=== PATIENT | female | born 1975 | race Caucasian/White ===

== ENCOUNTER 2024-02-03 15:02 | Observation (INO) ==
--- NOTE | 2024-02-03 15:18 | ED Triage Note ---
Date of Service February 03, 2024 Provider in Triage Author: Mary Kate Madison History of Present Illness This patient was briefly evaluated while in triage. An abbreviated physical exam was performed. This patient is a 48-year-old Female who presents to the ED for evaluation recent C. Diff infection (diagnosed in October), on dificid since last treated previously with Vanco x 3, dicyclomine, questran, probiotic increasing diarrhea (15x/day), weakness, possible near syncopal episode last night generalized abdominal pain Physical Exam GENERAL: NAD CARDIOVASCULAR: RRR RESPIRATORY: CTA ABDOMEN: BS x 4. Nontender to palpation. Initial orders for labs and / or imaging were placed and patient was placed in the waiting area until a bed is available. Please see further documentation for the full ED course.
[2024-02-03] MEDS: SODIUM CHLORIDE 0.9% 1,000 ML IV SCH (16:11)
[2024-02-03 16:32] LABS: Basophils # (auto) 0.05 K/uL (0.00-0.20); Basophils % (auto) 0.4 %; Eosinophils # (auto) 0.08 K/uL (0.00-0.50); Eosinophils % (auto) 0.7 %; Hematocrit (blood only) 42.5 % (37.0-47.0); Hemoglobin 14.9 g/dl (12.0-16.0); Immature Granulocytes # (auto) 0.03 K/uL (0.01-0.20); Immature Granulocytes % (auto) 0.3 %; Lymphocytes # (auto) 2.16 K/uL (1.20-3.40); Lymphocytes % (auto) 18.1 %; Mean Corpuscular Hemoglobin 30.5 pg (25.0-34.0); Mean Corpuscular Hgb Conc 35.1 g/dL (32.0-36.0); Mean Corpuscular Volume 86.9 fL (80.0-100.0); Mean Platelet Volume 9.8 fL (9.4-12.4); Monocytes # (auto) 0.71 K/uL (0.11-0.59); Neutrophils % (auto) 74.5 %; Platelet Count 286 K/uL (130-400); RDW Coefficient of Variation 12.6 % (11.5-14.5); RDW Standard Deviation 39.3 fL (36.4-46.3); Red Blood Count 4.89 M/uL (4.20-5.40); White Blood Count 11.93 K/ul (4.8-10.8)
[2024-02-03 16:47] LABS: Albumin Globulin Ratio 1.6 (0.9-2); Albumin Level 4.7 gm/dl (3.4-5.0); BUN Creatinine Ratio 4.1 (10-20); Bilirubin,Total 0.5 mg/dl (0.2-1.0); Calcium 9.9 mg/dl (8.6-10.3); Est GFR (African American) 110.3 ml/min; Est GFR (Non-African American) 95.1 ml/min; Potassium 3.9 mmol/L (3.5-5.1); Total Protein 7.7 gm/dl (6.0-8.3)
--- NOTE | 2024-02-03 17:26 | Emergency Department Note ---
Impression & Plan Diarrhea ED Provider Note NAME: REKHA BURNS AGE: 48 SEX: F : 1975 ARRIVES VIA: Walk-In INFORMANT: Patient, ED PROVIDER(S): Robyn Rodriguez MD CHIEF COMPLAINT: Diarrhea HPI: This is a 48-year-old female presenting for diarrhea per patient notes history of having multiple months of C. difficile. She states that beginning in October she started having infection with C. difficile. She is on vancomycin x 2 and then was switched to Dificid. She then noted that she has been taking her medicine as prescribed and the symptoms are getting worse again. She has abdominal pain and Was up to the diarrhea already today. She notes no chest pain, short breath, fever, chills. She does note that she had a syncopal episode yesterday from dehydration. ROS: See above HPI for pertinent positives & negatives. A total of 10 systems reviewed and were otherwise negative. PAST MEDICAL HISTORY: See Below PAST SURGICAL HISTORY: See Below FAMILY HISTORY: See Below SOCIAL HISTORY: See Below HOME MEDICATIONS: See Below ALLERGIES: See Below VITALS: See Below PHYSICAL EXAMINATION: General: resting comfortably in no acute distress Head: Normocephalic and atraumatic Eyes: Normal inspection, extraocular muscles intact Ear, nose, throat: Normal external exam Neck: Normal range of motion Respiratory: lungs clear to auscultation bilaterally Cardiovascular: Regular rate/rhythm, no murmur GI: soft, nontender, no guarding or rebound Extremities: nontender, moves all extremities Neuro: The patient awake and alert, appropriately conversive, no focal deficits, symmetric faces Skin: Warm, dry, and intact MEDICAL DECISION MAKING: This is a 48-year-old female sent for diarrhea. Patient notes that she has had multiples of C. difficile vancomycin multiple times and now Dificid. Will give full resuscitation, pain medicine for crampy abdominal pain and blood work. Consider CT imaging for persistent abdominal pain and possible complication such as toxic megacolon or diverticulitis/SBO/pancreatitis. -Blood work is reviewed showed no significant abnormalities, slight leukocytosis to 11.93 but otherwise no significant signs of dehydration clinically. Patient's urinalysis is unrevealing of UTI. Patient has no C. difficile toxin at this time. Otherwise negative stool studies. Vital signs are also reviewed and within normal limits. -CT imaging performed due to her prolonged symptoms. Again this reveals diarrheal illness without other acute other abnormality aside from possible cystitis. -Discussed findings with patient and reassuring workup. Patient continues to feel unwell. Did discuss discharge versus admission. Patient will take some time to think about this. -Patient ultimately request admission due to her persistent symptoms and dehydration. -Discussed with Dr. Stover for admission Differential diagnosis: C. difficile, sepsis, diarrheal illness, ER treatment provided: See below Independent History obtained from: Significant other, some Diagnostics interpreted by me: ECG: ECG independently interpreted by me with normal sinus rhythm, rate of 63, normal axis, normal MS, normal QRS, normal QTc, no ST segment elevations consistent with STEMI criteria Cardiac Monitoring: An order was placed for continuous cardiac monitoring. The monitor shows a rate of 72 with sinus rhythm. Laboratory studies: As stated above and show below. Imaging studies: See below. Past Med/Surg History Problem List (Updated 02/04/24 @ 10:26 by LEEANN Negrete) Syncope Diarrhea (Acute) BRBPR (bright red blood per rectum) Diarrhea (Acute) Dehydration (Acute) History of seizure Hypothyroidism Clostridium difficile infection (Acute) Intractable abdominal pain (Acute) Gastroenteritis (Acute) Migraine (Acute) Medical History (Updated 02/04/24 @ 10:26 by LEEANN Negrete) Epilepsy Surgical History Hx of section Social History Smoking Status: Former smoker Tobacco Type: Cigarettes Cigarettes Per Day: 1 pack per day; Smoking End Date: 6 yrs ago; Second Hand Exposure: Yes; Do You Dip or Chew Tobacco: No; Hx Alcohol Use: No Hx Substance Use: Yes Last Used Substance: Days (ago) Last Used Substance Other:: Thursday 02/01 Substance Use Type Other:: medical marijuana Preferred Language: Maltese Communication Ability: Effective Grain Unloader Required: No Beliefs That Will Affect Care: None Current Living Situation: Family and Significant Other Current Living Situation Comment: boyfriend and son Feels Safe at Home: Yes Assistive Devices: None Allergies Allergies Allergy/AdvReac Type Severity Reaction Status Date / Time metoclopramide [From Reglan] AdvReac Intermediate FELT LIKE Verified 02/03/24 21:25 "SKIN CRAWLING" Home Meds Home Medications Medication Instructions Recorded Confirmed fremanezumab-vfrm 225 mg/1.5 mL 225 mg subcut UD 12/04/19 02/03/24 subcutaneous syringe (Ajovy Syringe) sumatriptan succinate 6 mg/0.5 mL 6 mg subcut UD PRN Migraine 12/04/19 02/03/24 subcutaneous pen injector Headache zonisamide 50 mg capsule 50 mg PO QAM 11/11/20 02/03/24 ondansetron HCl 4 mg tablet 4 mg PO Q6H PRN Nausea 09/04/21 02/03/24 dextromethorphan IR 45 1 tab PO BID 11/02/23 02/03/24 mg-bupropion ER 105 mg biphasic tablet (Auvelity) fluticasone propionate 50 2 spray intranasal DAILY PRN 11/02/23 02/03/24 mcg/actuation nasal ALLERGIES spray,suspension levothyroxine 50 mcg tablet 50 mcg PO DAILYBB 11/02/23 02/03/24 lumateperone 42 mg capsule 42 mg PO HS 11/02/23 02/03/24 (Caplyta) meclizine 25 mg tablet 25 mg PO TID PRN Dizziness 11/02/23 02/03/24 suvorexant 10 mg tablet (Belsomra) 10 mg PO DAILY 11/02/23 02/03/24 fidaxomicin 200 mg tablet (Dificid) 200 mg PO Q OTHER DAY 02/03/24 02/03/24 zonisamide 100 mg capsule 100 mg PO HS 02/03/24 02/03/24 Results & Data (ED) Vital Signs Vital Signs - 24 hr 02/03/24 15:16 02/03/24 16:12 02/03/24 16:33 Temperature 36.4 C L Temperature Source Skin Pulse Rate 72 77 Pulse Rate [Apical] 70 Pulse Rate from SpO2 Sensor Respiratory Rate 20 18 Respiratory Effort / Characteristics Non-Labored Spontaneous Non-Labored Spontaneous Respiratory Depth Normal Normal Respiratory Pattern Regular Blood Pressure 143/102 H Blood Pressure Mean 115 Pulse Oximetry 98 Oxygen Delivery Method Room Air Sepsis Recent Fever Within 48 Hours No Sepsis New/Unexplained Change in Mental Status N/A Sepsis Action Taken by Nursing No Action Required 02/03/24 17:06 02/03/24 18:00 02/03/24 20:10 Temperature Temperature Source Pulse Rate 63 73 67 Pulse Rate [Apical] Pulse Rate from SpO2 Sensor 72 Respiratory Rate 17 13 Respiratory Effort / Characteristics Respiratory Depth Respiratory Pattern Blood Pressure 138/93 Blood Pressure Mean 110 Pulse Oximetry 98 Oxygen Delivery Method Room Air Sepsis Recent Fever Within 48 Hours Sepsis New/Unexplained Change in Mental Status Sepsis Action Taken by Nursing Laboratory Data 02/04/24 07:13 02/03/24 16:03 Lab Results 02/03/24 02/03/24 02/03/24 Range/Units 16:03 17:56 22:10 WBC 11.93 H (4.8-10.8) K/ul RBC 4.89 (4.20-5.40) M/uL Hgb 14.9 (12.0-16.0) g/dl Hct 42.5 (37.0-47.0) % MCV 86.9 (80.0-100.0) fL MCH 30.5 (25.0-34.0) pg MCHC 35.1 (32.0-36.0) g/dL RDW Std Deviation 39.3 (36.4-46.3) fL RDW Coeff of Jensen 12.6 (11.5-14.5) % Plt Count 286 (130-400) K/uL MPV 9.8 (9.4-12.4) fL Immature Gran % (Auto) 0.3 % Neut % (Auto) 74.5 % Lymph % (Auto) 18.1 % Antelope % (Auto) 6.0 % Eos % (Auto) 0.7 % Baso % (Auto) 0.4 % Neut # (Auto) 8.90 H (1.40-6.50) K/uL Lymph # (Auto) 2.16 (1.20-3.40) K/uL Antelope # (Auto) 0.71 H (0.11-0.59) K/uL Eos # (Auto) 0.08 (0.00-0.50) K/uL Baso # (Auto) 0.05 (0.00-0.20) K/uL Immature Gran # (Auto) 0.03 (0.01-0.20) K/uL Sodium 138 (136-145) mmol/L Potassium 3.9 (3.5-5.1) mmol/L Chloride 105 (98-107) mmol/L Carbon Dioxide 25 (21-32) mmol/L Anion Gap 8 (3-11) BUN 3 L (6-23) mg/dl Creatinine 0.74 (0.6-1.2) mg/dl Est Cr Clr Drug Dosing 86.0 ml/min Est GFR ( Amer) 110.3 ml/min Est GFR (Non-Af Amer) 95.1 ml/min BUN/Creatinine Ratio 4.1 L (10-20) Glucose 90 (70-99(Fasting)) mg/dl Lactate 1.0 (0.4-2.0) mmol/L Calcium 9.9 (8.6-10.3) mg/dl Magnesium 2.1 (1.7-2.4) mg/dl Total Bilirubin 0.5 (0.2-1.0) mg/dl AST 22 (13-39) U/L ALT 15 (7-52) U/L Alkaline Phosphatase 118 H (34-104) U/L Total Protein 7.7 (6.0-8.3) gm/dl Albumin 4.7 (3.4-5.0) gm/dl Globulin 3.0 (2.5-4.0) gm/dl Albumin/Globulin Ratio 1.6 (0.9-2) Lipase 29 (11-82) U/L TSH 1.256 (0.300-4.500) uIu/ml Urine Color Yellow Urine Appearance Clear (Clear) Urine pH 7.0 (4.5-7.5) Ur Specific [place] > 1.045 H (1.000-1.030) Urine Protein Trace H (Negative) Urine Glucose (UA) Negative (Negative) Urine Ketones Negative (Negative) Urine Blood Negative (Negative) Urine Nitrite Negative (Negative) Urine Bilirubin Negative (Negative) Urine Urobilinogen Negative (Negative) Ur Leukocyte Esterase Negative (Negative) Urine WBC (Auto) 0-5 (0-5) /hpf Urine RBC (Auto) 0-2 (0-2) /hpf U Hyaline Cast (Auto) 0-2 (0-2) /lpf U Epithel Cells (Auto) 0-2 (0-2) /hpf Urine Bacteria (Auto) None Seen (None Seen) Stl C. cayetanensis PCR Not Detected (NotDetected) Stool Rotavirus A PCR Not Detected (NotDetected) Stl Adenov F 40/41 PCR Not Detected (NotDetected) Stool Astrovirus (PCR) Not Detected (NotDetected) Stool Campylobacter PCR Not Detected (NotDetected) Stl C. diff Tox B Gene Negative Cdiff Gene (Neg) Stool Cryptosporidium PCR Not Detected (NotDetected) Stl E.coli Shiga Tox PCR Not Detected (NotDetected) Stl Enterotoxigenic E PCR Not Detected (NotDetected) Stool EPEC (PCR) Not Detected (NotDetected) Stool EAEC (PCR) Not Detected (NotDetected) Stl E. histolytica PCR Not Detected (NotDetected) Stool Giardia Lamblia PCR Not Detected (NotDetected) Stool Salmonella PCR Not Detected (NotDetected) Stool Sapovirus (PCR) Not Detected (NotDetected) Stl P. shigelloides PCR Not Detected (NotDetected) Stl Shigella/EIEC PCR Not Detected (NotDetected) St Y.enterocolitica PCR Not Detected (NotDetected) Stool Vibrio (PCR) Not Detected (NotDetected) Stl Vibrio cholerae PCR Not Detected (NotDetected) Stl Norovirus GI/GII PCR Not Detected (NotDetected) Administered Medications Acetaminophen (Acetaminophen 325 Mg Tab) 650 mg PO QID PRN PRN Reason: pain/fever Stop: 03/04/24 23:41 Last Admin: 02/04/24 07:58 Dose: 650 mg Documented By: Admin: 02/04/24 01:49 Dose: 650 mg Documented By: MALCOLM Dextromethorphan/Bupropion (Dextromethorphan Hbr/Bupropion 45-105mg Tab) 1 each PO BID DINESH Stop: 03/05/24 11:59 Last Admin: 02/04/24 12:14 Dose: 1 each Documented By: PAULETTE Hydromorphone HCl (Hydromorphone Inj 0.5 Mg/0.5 Ml Syr) 0.25 mg IV Q8H PRN PRN Reason: Pain Stop: 02/06/24 06:00 Last Admin: 02/04/24 13:08 Dose: 0.25 mg Documented By: PAULETTE Hydroxyzine HCl (Hydroxyzine Hcl 10 Mg Tab) 10 mg PO QID PRN PRN Reason: Anxiety Stop: 03/04/24 23:41 Last Admin: 02/04/24 07:59 Dose: 10 mg Documented By: PAULETTE Ketorolac Tromethamine (Ketorolac Tromethamine 15 Mg/Ml Vial) 15 mg IV Q6H PRN PRN Reason: Pain Stop: 02/08/24 23:41 Last Admin: 02/04/24 10:48 Dose: 15 mg Documented By: Admin: 02/04/24 03:44 Dose: 15 mg Documented By: VERONICA Levothyroxine Sodium (Levothyroxine Sodium 50 Mcg Tablet) 50 mcg PO DAILYBB [facility] Stop: 03/05/24 06:29 Last Admin: 02/04/24 06:00 Dose: 50 mcg Documented By: MALCOLM Miscellaneous (Zonegran 50mg - Order Awaiting Action) 1 each N/A QS [facility] Stop: 03/05/24 07:59 Last Admin: 02/04/24 09:49 Dose: Not Given Documented By: PAULETTE Discontinued Medications Dextromethorphan/Bupropion (Dextromethorphan Hbr/Bupropion 45-105mg Tab) 1 each PO BID [facility] Stop: 03/05/24 09:44 Last Admin: 02/04/24 12:01 Dose: Not Given Documented By: PAULETTE Dicyclomine HCl (Dicyclomine Hcl 10 Mg Cap) 10 mg PO NOW ONE Stop: 02/03/24 18:42 Last Admin: 02/03/24 19:07 Dose: 10 mg Documented By: MAYA Sodium Chloride (Nss) 1,000 mls @ 999 mls/hr IV .Q1H1M DINESH Stop: 02/03/24 16:20 Last Infusion: 02/03/24 18:49 Dose: Infused Documented By: Admin: 02/03/24 16:11 Dose: 999 mls/hr Documented By: MOO Ioversol (Optiray 320 100ml) 93 ml IV ONCE ONE Stop: 02/03/24 19:27 Last Admin: 02/03/24 19:27 Dose: 93 ml Documented By: ALECIA Ketorolac Tromethamine (Ketorolac Tromethamine 15 Mg/Ml Vial) 15 mg IV NOW ONE Stop: 02/03/24 18:42 Last Admin: 02/03/24 19:07 Dose: 15 mg Documented By: MAYA Miscellaneous (Auvelity 45-105 Mg - Order Awaiting Action) 1 each N/A QS DINESH Stop: 03/05/24 07:59 Last Admin: 02/04/24 09:49 Dose: Not Given Documented By: PAULETTE Miscellaneous (Lumateperone [Caplyta] 42 Mg - Order Awaiting Action) 1 each N/A QS DINESH Stop: 03/05/24 07:59 Last Admin: 02/04/24 09:49 Dose: Not Given Documented By: PAULETTE Zonisamide (Zonisamide 100 Mg Capsule) 100 mg PO [facility] Stop: 02/04/24 01:07 Last Admin: 02/04/24 01:49 Dose: 100 mg Documented By: MALCOLM Discharge Plan Visit Data Chief Complaint: Dehydration Stated Complaint: DEHYDRATED, DIARRHEA ED Provider: Robyn Rodriguez Discharge Problem: Diarrhea Patient Disposition: Home - Self-Care Discharge Instructions Interventions: ED Discharge Assessment Last Done: 02/04/24 01:15 Discharge Problem: Diarrhea Qualifiers: Diarrhea type: unspecified type Qualified Code(s): R19.7 - Diarrhea, unspecified
[2024-02-03] MEDS: KETOROLAC TROMETHAMINE 15 MG/ML VIAL IV ONE (19:07)
[2024-02-03] MEDS: DICYCLOMINE HCL 10 MG CAP PO ONE (19:07)
[2024-02-03] MEDS: OPTIRAY 320 100ml IV ONE (19:27)
[2024-02-03 19:44] LABS: Adenovirus F 40/41 PCR Not Detected (NotDetected); Astrovirus PCR Not Detected (NotDetected); Campylobacter PCR Not Detected (NotDetected); Cryptosporidium PCR Not Detected (NotDetected); Cyclospora cayetanensis PCR Not Detected (NotDetected); Entamoeba histolytica PCR Not Detected (NotDetected); Enteroaggregative E.coli(EAEC) Not Detected (NotDetected); Enteropathogenic E.coli (EPEC) Not Detected (NotDetected); Enterotoxigenic E.coli (ETEC) Not Detected (NotDetected); Giardia lamblia PCR Not Detected (NotDetected); Norovirus GI/GII PCR Not Detected (NotDetected); Plesiomonas shigelloides PCR Not Detected (NotDetected); Rotavirus A PCR Not Detected (NotDetected); Salmonella PCR Not Detected (NotDetected); Sapovirus PCR Not Detected (NotDetected); Shiga-like Toxin E.coli (STEC) Not Detected (NotDetected); Shigella/Enteroinvasive E.coli Not Detected (NotDetected); Vibrio cholerae PCR Not Detected (NotDetected); Vibrio species PCR Not Detected (NotDetected); Yersinia enterocolitica PCR Not Detected (NotDetected)
--- NOTE | 2024-02-03 20:37 | CT Scan Report ---
Exam(s): CT ABDOMEN + PELVIS With Contrast IV Amt: 93 ml optiray 320 EXAM: CT Abdomen and Pelvis With Intravenous Contrast CLINICAL HISTORY: Reason for exam: diffuse abd pain, diarrhea x4 months. TECHNIQUE: Axial computed tomography images of the abdomen and pelvis with intravenous contrast. CTDI is 13.91 mGy and DLP is 658.49 mGy-cm. Automated exposure control was utilized for the study. A dose lowering technique was utilized adhering to the principles of ALARA. CONTRAST: Patient received 93 ml optiray 320 of IV contrast COMPARISON: CT abdomen/pelvis on 11/13/2023 FINDINGS: Lung bases: Unremarkable. No mass. No consolidation. ABDOMEN: Liver: Unremarkable. No mass. Gallbladder and bile ducts: Contracted gallbladder. No calcified stones. No ductal dilation. Pancreas: Unremarkable. No mass. No ductal dilation. Spleen: Small splenule spine. Adrenals: Unremarkable. No mass. Kidneys and ureters: Unremarkable. No hydronephrosis or obstructing ureteral stone. Stomach and bowel: Evaluation of the stomach is limited by underdistention. Fluid in the colon is suggestive of diarrheal state. No mucosal thickening. PELVIS: Appendix: Normal appendix. Bladder: Mild prominence of the bladder wall is nonspecific. Please correlate with urinalysis if concerned for cystitis. Reproductive: Unremarkable as visualized. ABDOMEN and PELVIS: Intraperitoneal space: Unremarkable. No free air. No significant fluid collection. Bones/joints: See above. Soft tissues: Unremarkable. Vasculature: Phleboliths in the pelvis. No abdominal aortic aneurysm. Lymph nodes: Unremarkable. No enlarged lymph nodes. IMPRESSION: 1. Mild prominence of the bladder wall is nonspecific. Please correlate with urinalysis if concerned for cystitis. 2. Fluid in the colon is suggestive of diarrheal state. Electronically signed by: Alex Turk M.D. 02/03/24 20:36 PM
[2024-02-03 22:37] LABS: Appearance Urine Clear (Clear); Bacteria Urine Automated None Seen (None Seen); Bilirubin Urine Negative (Negative); Blood Urine Negative (Negative); Cast Urine Automated 0-2 /lpf (0-2); Color Urine Yellow; Epithelial Cell Urine Auto 0-2 /hpf (0-2); Glucose Urine UA Negative (Negative); Ketones Urine Negative (Negative); Leukocyte Esterase Urine Negative (Negative); Nitrite Urine Negative (Negative); Protein Urine Trace (Negative); RBC Urine Automated 0-2 /hpf (0-2); Specific Gravity Urine > 1.045 (1.000-1.030); Urobilinogen Urine Negative (Negative); WBC Urine Automated 0-5 /hpf (0-5)
[2024-02-03 23:31] LABS: Magnesium 2.1 mg/dl (1.7-2.4)
--- NOTE | 2024-02-03 23:38 | History & Physical Report ---
Date of Service February 03, 2024 Assessment & Plan (1) Syncope: Plan: Possible orthostasis given worsening diarrhea, recurrent C. difficile ongoing Dificid Rx Possible vasovagal mechanism given pain complaints. Rule out structural cardiac pathology. hypothyroidism, euthyroid as of today's TSH anxiety/mood disorder, at baseline seizure disorder/ migraine, stable on regimen cognitive impairment as per records past tobacco abuse OBS Med/tele IVF Check orthostatic vitals, TTE for syncopal workup GI consult re: worsening diarrhea, recurrent C. difficile ongoing Dificid Rx DVT prophylaxis. SCDs RE LGIB Full code Text document was generated using Beem voice recognition software. It may contain grammatical or spelling errors. Kindly contact undersigned for clarification of any documentation item in question. History of Present Illness Chief Complaint: Syncope, worsening abdominal pain, diarrhea Primary Care Provider: Dayanara Green MD History obtained from patient and records. Medical history significant for recurrent C. difficile currently on Dificid Rx, hypothyroidism, anxiety/mood disorder, seizure disorder, migraine, cognitive impairment as per records, past tobacco abuse. Last confinement October 2023 for abdominal pain and diarrhea. Stool C. difficile gene positive, C. difficile toxin negative. Patient discharged on oral vancomycin course. Patient seen at PCPs office patient seen at PCPs office last week for achy abdominal pain associated with diarrhea symptoms with occasional bleeding. No fever, no chills. Outpatient stool C. difficile test was positive. Patient started on Dificid course. Worsening pain and diarrhea despite compliance with the medications. Unwitnessed syncopal event at home today from weakness. No headache, no chest pain, no SOB, no tongue biting or incontinence. Patient consulted ER for worsening symptoms. Medical History as above Surgical History : Breast lesion excision, section, dental surgery Family History : Alcoholism, mood disorder, DM, heart disease, migraine, ovarian cancer, stroke Personal/Social history : Past tobacco abuse, no EtOH intake, applying for disability Allergies Allergy/AdvReac Type Severity Reaction Status Date / Time metoclopramide [From Reglan] AdvReac Intermediate FELT LIKE Verified 02/03/24 21:25 "SKIN CRAWLING" Home Medications Medication Instructions Recorded Confirmed Type fremanezumab-vfrm 225 mg/1.5 mL 225 mg subcut UD 12/04/19 02/03/24 History subcutaneous syringe (Ajovy Syringe) sumatriptan succinate 6 mg/0.5 mL 6 mg subcut UD PRN Migraine 12/04/19 02/03/24 History subcutaneous pen injector Headache zonisamide 50 mg capsule 50 mg PO QAM 11/11/20 02/03/24 History ondansetron HCl 4 mg tablet 4 mg PO Q6H PRN Nausea 09/04/21 02/03/24 History dextromethorphan IR 45 1 tab PO BID 11/02/23 02/03/24 History mg-bupropion ER 105 mg biphasic tablet (Auvelity) fluticasone propionate 50 2 spray intranasal DAILY PRN 11/02/23 02/03/24 History mcg/actuation nasal ALLERGIES spray,suspension levothyroxine 50 mcg tablet 50 mcg PO DAILYBB 11/02/23 02/03/24 History lumateperone 42 mg capsule 42 mg PO HS 11/02/23 02/03/24 History (Caplyta) meclizine 25 mg tablet 25 mg PO TID PRN Dizziness 11/02/23 02/03/24 History suvorexant 10 mg tablet (Belsomra) 10 mg PO DAILY 11/02/23 02/03/24 History fidaxomicin 200 mg tablet (Dificid) 200 mg PO Q OTHER DAY 02/03/24 02/03/24 History zonisamide 100 mg capsule 100 mg PO HS 02/03/24 02/03/24 History Past Med/Surg History Problem List (Updated 02/04/24 @ 10:26 by LEEANN Negrete) Syncope Diarrhea (Acute) BRBPR (bright red blood per rectum) Diarrhea (Acute) Dehydration (Acute) History of seizure Hypothyroidism Clostridium difficile infection (Acute) Intractable abdominal pain (Acute) Gastroenteritis (Acute) Migraine (Acute) Medical History (Updated 02/04/24 @ 10:26 by LEEANN Negrete) Epilepsy Surgical History Hx of section Social History Smoking Status: Former smoker Tobacco Type: Cigarettes Cigarettes Per Day: 1 pack per day; Smoking End Date: 6 yrs ago; Second Hand Exposure: Yes; Do You Dip or Chew Tobacco: No; Hx Alcohol Use: No Hx Substance Use: Yes Last Used Substance: Days (ago) Last Used Substance Other:: Thursday 02/01 Substance Use Type Other:: medical marijuana Preferred Language: Venezuelan Communication Ability: Effective Blending Supervisor Required: No Beliefs That Will Affect Care: None Current Living Situation: Family and Significant Other Current Living Situation Comment: boyfriend and son Feels Safe at Home: Yes Assistive Devices: Glasses Review of Systems Review of Systems: As per HPI, all other systems reviewed and negative Physical Exam Physical Exam: GENERAL: uncomfortable, looks older than stated age, no respiratory distress SKIN: Normal color, warm HEENT: [place] palpebral conjunctivae, no ptosis, dry buccal mucosa NECK : Supple, no tenderness CHEST : CTA, no tenderness HEART : RRR, no obvious murmurs ABDOMEN: Some distention, central abdominal tenderness EXTREMITIES : No LE swelling/tenderness, no other conspicuous deformities noted NEUROLOGIC : Coherent, no facial asymmetry, no other gross focality Results & Data Results & Data Vital Signs (Past 12 Hours) Vital Signs Temp Pulse Pulse Resp BP Pulse Ox O2 Del Method 02/03/24 20:10 67 02/03/24 18:00 73 13 98 Room Air 02/03/24 17:06 63 17 138/93 02/03/24 16:33 70 18 02/03/24 16:12 77 02/03/24 15:16 36.4 C L 72 20 143/102 H 98 Room Air Laboratory Results Laboratory Results WBC 11.93 K/ul (4.8-10.8) H 02/03/24 16:03 RBC 4.89 M/uL (4.20-5.40) 02/03/24 16:03 Hgb 14.9 g/dl (12.0-16.0) 02/03/24 16:03 Hct 42.5 % (37.0-47.0) 02/03/24 16:03 MCV 86.9 fL (80.0-100.0) 02/03/24 16:03 MCH 30.5 pg (25.0-34.0) 02/03/24 16:03 MCHC 35.1 g/dL (32.0-36.0) 02/03/24 16:03 RDW Std Deviation 39.3 fL (36.4-46.3) 02/03/24 16:03 RDW Coeff of Jensen 12.6 % (11.5-14.5) 02/03/24 16:03 Plt Count 286 K/uL (130-400) 02/03/24 16:03 MPV 9.8 fL (9.4-12.4) 02/03/24 16:03 Immature Gran % (Auto) 0.3 % 02/03/24 16:03 Neut % (Auto) 74.5 % 02/03/24 16:03 Lymph % (Auto) 18.1 % 02/03/24 16:03 Carter % (Auto) 6.0 % 02/03/24 16:03 Eos % (Auto) 0.7 % 02/03/24 16:03 Baso % (Auto) 0.4 % 02/03/24 16:03 Neut # (Auto) 8.90 K/uL (1.40-6.50) H 02/03/24 16:03 Lymph # (Auto) 2.16 K/uL (1.20-3.40) 02/03/24 16:03 Carter # (Auto) 0.71 K/uL (0.11-0.59) H 02/03/24 16:03 Eos # (Auto) 0.08 K/uL (0.00-0.50) 02/03/24 16:03 Baso # (Auto) 0.05 K/uL (0.00-0.20) 02/03/24 16:03 Immature Gran # (Auto) 0.03 K/uL (0.01-0.20) 02/03/24 16:03 Sodium 138 mmol/L (136-145) 02/03/24 16:03 Potassium 3.9 mmol/L (3.5-5.1) 02/03/24 16:03 Chloride 105 mmol/L (98-107) 02/03/24 16:03 Carbon Dioxide 25 mmol/L (21-32) 02/03/24 16:03 Anion Gap 8 (3-11) 02/03/24 16:03 BUN 3 mg/dl (6-23) L 02/03/24 16:03 Creatinine 0.74 mg/dl (0.6-1.2) 02/03/24 16:03 Est Cr Clr Drug Dosing 86.0 ml/min 02/03/24 16:03 Est GFR ( Amer) 110.3 ml/min 02/03/24 16:03 Est GFR (Non-Af Amer) 95.1 ml/min 02/03/24 16:03 BUN/Creatinine Ratio 4.1 (10-20) L 02/03/24 16:03 Glucose 90 mg/dl (70-99(Fasting)) 02/03/24 16:03 Lactate 1.0 mmol/L (0.4-2.0) 02/03/24 16:03 Calcium 9.9 mg/dl (8.6-10.3) 02/03/24 16:03 Magnesium 2.1 mg/dl (1.7-2.4) 02/03/24 16:03 Total Bilirubin 0.5 mg/dl (0.2-1.0) 02/03/24 16:03 AST 22 U/L (13-39) 02/03/24 16:03 ALT 15 U/L (7-52) 02/03/24 16:03 Alkaline Phosphatase 118 U/L (34-104) H 02/03/24 16:03 Total Protein 7.7 gm/dl (6.0-8.3) 02/03/24 16:03 Albumin 4.7 gm/dl (3.4-5.0) 02/03/24 16:03 Globulin 3.0 gm/dl (2.5-4.0) 02/03/24 16:03 Albumin/Globulin Ratio 1.6 (0.9-2) 02/03/24 16:03 Lipase 29 U/L (11-82) 02/03/24 16:03 Urine Color Yellow 02/03/24 22:10 Urine Appearance Clear (Clear) 02/03/24 22:10 Urine pH 7.0 (4.5-7.5) 02/03/24 22:10 Ur Specific [place] Mark > 1.045 (1.000-1.030) H 02/03/24 22:10 Urine Protein Trace (Negative) H 02/03/24 22:10 Urine Glucose (UA) Negative (Negative) 02/03/24 22:10 Urine Ketones Negative (Negative) 02/03/24 22:10 Urine Blood Negative (Negative) 02/03/24 22:10 Urine Nitrite Negative (Negative) 02/03/24 22:10 Urine Bilirubin Negative (Negative) 02/03/24 22:10 Urine Urobilinogen Negative (Negative) 02/03/24 22:10 Ur Leukocyte Esterase Negative (Negative) 02/03/24 22:10 Urine WBC (Auto) 0-5 /hpf (0-5) 02/03/24 22:10 Urine RBC (Auto) 0-2 /hpf (0-2) 02/03/24 22:10 U Hyaline Cast (Auto) 0-2 /lpf (0-2) 02/03/24 22:10 U Epithel Cells (Auto) 0-2 /hpf (0-2) 02/03/24 22:10 Urine Bacteria (Auto) None Seen (None Seen) 02/03/24 22:10 Stl C. cayetanensis PCR Not Detected (NotDetected) 02/03/24 17:56 Stool Rotavirus A PCR Not Detected (NotDetected) 02/03/24 17:56 Stl Adenov F 40/41 PCR Not Detected (NotDetected) 02/03/24 17:56 Stool Astrovirus (PCR) Not Detected (NotDetected) 02/03/24 17:56 Stool Campylobacter PCR Not Detected (NotDetected) 02/03/24 17:56 Stl C. diff Tox B Gene Negative Cdiff Gene (Neg) 02/03/24 17:56 Stool Cryptosporidium PCR Not Detected (NotDetected) 02/03/24 17:56 Stl E.coli Shiga Tox PCR Not Detected (NotDetected) 02/03/24 17:56 Stl Enterotoxigenic E PCR Not Detected (NotDetected) 02/03/24 17:56 Stool EPEC (PCR) Not Detected (NotDetected) 02/03/24 17:56 Stool EAEC (PCR) Not Detected (NotDetected) 02/03/24 17:56 Stl E. histolytica PCR Not Detected (NotDetected) 02/03/24 17:56 Stool Giardia Lamblia PCR Not Detected (NotDetected) 02/03/24 17:56 Stool Salmonella PCR Not Detected (NotDetected) 02/03/24 17:56 Stool Sapovirus (PCR) Not Detected (NotDetected) 02/03/24 17:56 Stl P. shigelloides PCR Not Detected (NotDetected) 02/03/24 17:56 Stl Shigella/EIEC PCR Not Detected (NotDetected) 02/03/24 17:56 St Y.enterocolitica PCR Not Detected (NotDetected) 02/03/24 17:56 Stool Vibrio (PCR) Not Detected (NotDetected) 02/03/24 17:56 Stl Vibrio cholerae PCR Not Detected (NotDetected) 02/03/24 17:56 Stl Norovirus GI/GII PCR Not Detected (NotDetected) 02/03/24 17:56 Impressions Abdomen/Pelvis CT 02/03/24 19:13 Exam(s): CT ABDOMEN + PELVIS With Contrast IV Amt: 93 ml optiray 320 EXAM: CT Abdomen and Pelvis With Intravenous Contrast CLINICAL HISTORY: Reason for exam: diffuse abd pain, diarrhea x4 months. TECHNIQUE: Axial computed tomography images of the abdomen and pelvis with intravenous contrast. CTDI is 13.91 mGy and DLP is 658.49 mGy-cm. Automated exposure control was utilized for the study. A dose lowering technique was utilized adhering to the principles of ALARA. CONTRAST: Patient received 93 ml optiray 320 of IV contrast COMPARISON: CT abdomen/pelvis on 11/13/2023 FINDINGS: Lung bases: Unremarkable. No mass. No consolidation. ABDOMEN: Liver: Unremarkable. No mass. Gallbladder and bile ducts: Contracted gallbladder. No calcified stones. No ductal dilation. Pancreas: Unremarkable. No mass. No ductal dilation. Spleen: Small splenule spine. Adrenals: Unremarkable. No mass. Kidneys and ureters: Unremarkable. No hydronephrosis or obstructing ureteral stone. Stomach and bowel: Evaluation of the stomach is limited by underdistention. Fluid in the colon is suggestive of diarrheal state. No mucosal thickening. PELVIS: Appendix: Normal appendix. Bladder: Mild prominence of the bladder wall is nonspecific. Please correlate with urinalysis if concerned for cystitis. Reproductive: Unremarkable as visualized. ABDOMEN and PELVIS: Intraperitoneal space: Unremarkable. No free air. No significant fluid collection. Bones/joints: See above. Soft tissues: Unremarkable. Vasculature: Phleboliths in the pelvis. No abdominal aortic aneurysm. Lymph nodes: Unremarkable. No enlarged lymph nodes. IMPRESSION: 1. Mild prominence of the bladder wall is nonspecific. Please correlate with urinalysis if concerned for cystitis. 2. Fluid in the colon is suggestive of diarrheal state. Electronically signed by: Alex Turk M.D. 02/03/24 20:36 PM Diagnostic Findings EKG as per my interpretation :rate 65, NSR, normal axis, incomplete RBBB, no ischemia
[2024-02-03] MEDS ORDERED: PROMETHAZINE 6.25 MG/50.25 ML BAG IV PRN (23:42)
[2024-02-04] MEDS ORDERED: FLUTICASONE PROPIONATE NA SPR 16 GM BTL PRN (01:06)
[2024-02-04] MEDS: ZONISAMIDE 100 MG CAPSULE PO SCH (01:49)
[2024-02-04] MEDS: ACETAMINOPHEN 325 MG TAB PO PRN (01:49)
[2024-02-04 01:50] LABS: Thyroid Stimulating Hormone 1.256 uIu/ml (0.300-4.500)
[2024-02-04] MEDS: KETOROLAC TROMETHAMINE 15 MG/ML VIAL IV PRN (03:44)
--- OUTSIDE RECORDS SUMMARY | 2024-02-04 03:51 | External Medical Summary ---
Author Name Unknown Address Unknown Organization [id number]:[facility] [place] [address] [facility] [id number] Laboratory Report Ordering Provider Test Date Status SHIV KAPLAN 01/25/2024 11:06:17 Final Observation Date Value Abnormality Reference (Units ) Status Campylobacter sp DNA.diarrheagenic [Presence] in Stool by CATHERINE with probe detection 01/25/2024 11:06:17 Negative Negative Final Salmonella sp rpoD gene [Presence] in Stool by CATHERINE with probe detection 01/25/2024 11:06:17 Negative Negative Final Shigella species+EIEC invasion plasmid antigen H ipaH gene [Presence] in Stool by CATHERINE with probe detection 01/25/2024 11:06:17 Negative Negative Final Vibrio sp DNA [Identifier] in Specimen by CATHERINE with probe detection 01/25/2024 11:06:17 Negative Negative Final Yersinia enterocolitica recN gene [Presence] in Stool by CATHERINE with probe detection 01/25/2024 11:06:17 Negative Negative Final Escherichia coli Stx1 toxin stx1 gene [Presence] in Stool by CATHERINE with probe detection 01/25/2024 11:06:17 Negative Negative Final Escherichia coli Stx2 toxin stx2 gene [Presence] in Stool by CATHERINE with probe detection 01/25/2024 11:06:17 Negative Negative Final Norovirus genogroups I and II RNA panel - Stool by CATHERINE with probe detection 01/25/2024 11:06:17 Negative Negative Final Rotavirus A RNA [Presence] in Stool by CATHERINE with probe detection 01/25/2024 11:06:17 Negative Negative Final Performing Location [facility] – [place] - [address] [facility] [id number]
--- OUTSIDE RECORDS SUMMARY | 2024-02-04 03:51 | External Medical Summary ---
Author Name Unknown Address Unknown Organization K01:[facility] [place] [address] [facility] [place] [address] Laboratory Report Ordering Provider Test Date Status SHIV KAPLAN 01/25/2024 11:06:17 Final Observation Date Value Abnormality Reference (Units) Status Bacteria identified in Specimen by Culture 01/25/2024 11:06:17 No Aeromonas species or Plesiomonas species isolated. Final Test: Gastrointestinal Patho gen Panel Culture
Specimen Source: Stool
Specimen Type: Stool
Specimen Date: 01/25/2024 1106
Result Date: 01/28/2024 1208
Result Status: Final result
Resulting Lab: [facility] [place]
[address]
[place] [id number]

CULTURE

No Aeromonas species or Plesiomonas species isolated.

null Performing Location [facility] [place] [address] [place] [id number]
--- OUTSIDE RECORDS SUMMARY | 2024-02-04 03:51 | External Medical Summary | Summary of Care ---
Author Name Unknown Organization [facility] Address [address] [place] [address] Phone [phone] Care Team Providers Care Plum Packer Name Role Phone Jose YAN MD, Javon Stahl Primary Care Provider [phone] Reason for Visit * Reason Comments Outpatient Testing Encounter Details Date Type Department Care Team (Late st Contact Info) Description 01/25/2024 11:10 AM EDT Laboratory Laboratory [facility] [address] [place] [address] [facility] [address] [place] [address] Diarrhea, unspecified type Allergies Active Allergy Reactions Criticality Noted Date Comments Metoclopramide Hcl 06/01/2018 Pt felt like she crawling out of skin documented as of this encounter (statuses as of 01/25/2024) Medications Medication Sig Dispensed Refills Start Date End Date Status Fluticasone Propionate 50 MCG/ACT Nasal Suspension (Flonase) Administer 2 Sprays into each nostril in the morning and 2 Sprays before bedtime. 18.2 mL 6 10/15/2020 Active Ondansetron HCl 4 MG Oral TabletIndications:N ausea and vomiting, intractability of vomiting not specified, unspecified vomiting type Take by mouth 1 Tablet every 6 hours as needed for Nausea. 30 Tablet 2 07/18/2021 Active Vitamin D-3 25 MCG (1000 UT) Oral Capsule Take 1 Capsule by mouth in the morning. Active Ibuprofen 200 MG Oral Capsule Take 2 Capsules by mouth every 6 hours as needed. Active Ajovy 225 MG/1.5ML Subcutaneous Solution Prefilled Syringe (Fremanezumab-vfrm) Indications:Chronic migraine without aura without status migrainosus, not intractable inject 4.5 milliliters subcutaneously every 3 months 4.5 mL 3 11/13/2022 Active Belsomra 5 MG Oral Tablet at bedtime. 12/23/2022 Active medroxyPROGESTERone Acetate 2.5 MG Oral Tablet (Provera)Indication s:Symptomatic menopausal or female climacteric states Take 1 Tablet by mouth daily. 90 Tablet 3 01/06/2023 Active SUMAtriptan Succinate 6 MG/0.5ML Subcutaneous Solution Auto-injector (Imitrex)Indication s:Chronic migraine without aura without status migrainosus, not intractable inject one syringe at onset of headache and may repeat in 2 hours if needed- max of two syringes per day 6 mL 3 04/07/2023 Active Meclizine HCl 25 MG Oral Tablet (Antivert) TAKE 1 TABLET BY MOUTH THREE TIMES DAILY IF NEEDED for dizziness (morning, noon, evening) 10 Tablet 1 05/03/2023 Active Levothyroxine Sodium 50 MCG Oral Tablet (Levoxyl)Indication s:Hypothyroidism, unspecified type Take 1 tablet by mouth daily first thing in the morning at least 30 minutes prior to breakfast or other meds. 90 Tablet 2 06/04/2023 Active Auvelity 45-105 MG Oral Tablet Extended Release (Dextromethorphan-b uPROPion ER) Take 1 Tablet by mouth in the morning and 1 Tablet before bedtime. Active Caplyta 42 MG Oral Capsule (Lumateperone Tosylate) Take 1 Capsule by mouth at bedtime. Active Ventolin HFA 108 (90 Base) MCG/ACT Inhalation Aerosol Solution Inhale 2 Puffs by mouth every 4 hours as needed (wheezing, chest tightness or cough). 18 g 08/30/2023 Active Estradiol 0.05 MG/24HR Transdermal Patch Twice WeeklyIndications:S ymptomatic menopausal or female climacteric states Apply one patch to trunk, abdomen or buttocks, change twice per week. 8 Patch 3 10/20/2023 Active Dicyclomine HCl 10 MG Oral Capsule (Bentyl) 1 Capsule in the morning and 1 Capsule at noon and 1 Capsule in the evening and 1 Capsule before bedtime. 11/09/2023 Active LORazepam 0.5 MG Oral Tablet (Ativan) 11/04/2023 Active Sucralfate 1 GM/10ML Oral Suspension (Carafate) 4 times a day. 11/16/2023 Active oxyCODONE-Acetamino phen 5-325 MG Oral Tablet (Percocet) Take 1 Tablet by mouth every 6 hours as needed. Using 1/2 tab 11/16/2023 Active Zonisamide 50 MG Oral Capsule (Zonegran)Indicatio ns:Chronic migraine without aura without status migrainosus, not intractable TAKE 1 CAPSULE IN MORNING AND 2 CAPSULES AT NIGHT 90 Capsule 5 12/10/2023 Active Cholestyramine 4 GM Oral Packet (Questran) Take 1 Packet by mouth in the morning and 1 Packet before bedtime. mixed with liquid.. 60 Packet 2 01/05/2024 Active Pantoprazole Sodium 40 MG Oral Tablet Delayed Release (Protonix)Indicatio ns:Gastroesophageal reflux disease without esophagitis Take 1 Tablet by mouth in the morning. In the morning.. 90 Tablet 1 01/24/2024 Active Hospital, Clinic, or Other Facility Administered Medication Ordered Dose Route Frequency Start Date End Date Status Albuterol Sulfate (Proventil) (2.5 MG/3ML) 0.083% inhalation solution 2.5 mgIndications:SHEETS (dyspnea on exertion) 2.5 mg NEBULIZER PRN 09/16/2023 09/15/2024 Act jennifer Albuterol Sulfate (Proventil) (5 MG/ML) 0.5% *conc* inhalation solution 2.5 mgIndications:SHEETS (dyspnea on exertion) 2.5 mg NEBULIZER PRN 09/16/2023 09/15/2024 Act jennifer documented as of this encounter (statuses as of 01/25/2024) Active Problems Problem Noted Date Diagnosed Date History of 2019 novel coronavirus disease (COVID -19) 11/27/2023 History of Clostridioides difficile colitis 01/2024 Overweight (BMI 25.0-29.9) 11/27/2023 Rhinitis, nonallergic 11/13/2020 Recurrent major depression resistant to treatmen t 07/09/2020 Seizure disorder, simple par tial, without intractable epilepsy 01/11/2020 Cervical radiculopathy 07/28/2018 Intractable migraine with aura without status mi grainosus 06/01/2018 Hyperreflexia 04/01/2018 Cognitive impairment 05/31/2013 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 04/10/2013 Hypothyroidism documented as of this encounter (statuses as of 01/25/2024) Resolved Problems Problem Noted Date Diagnosed Date Resolved Date COVID-19 virus infection 04/21/202301/2024 Alzheimer's disease, unspecified (CODE) 03/24/2023 09/06/2023 Food insecurity 04/28/2021 06/04/2022 Overview: Per [facility] Protocol Bipolar 2 disorder 06/01/2018 Intractable migraine with au ra without status migrainosus 06/01/2018 11/27/2023 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 09/16/2015 11/27/2023 documented as of this encounter (statuses as of 01/25/2024) Immunizations Name Administration Dates Next Due COVID-19 mRNA, LNP-s, No Pre serve, 2-Dose Series (Moderna) 04/24/2021,08/07/2020,07/10/2020 Covid-19, Mrna, Lnp-s, Pf, B ivalent, 30 Mcg, IM, 12 yrs and above (Pfizer) 02/28/2022 PPD 08/15/2018 Pneumococcal Polysaccharide PPV23 (Pneumovax) 07/13/2018 Seasonal Influenza Virus Vac cine, Unspecified Formulation 03/26/2018,03/12/2011 Seasonal Influenza, PF, 6 M & above, IM , (FluLaval or Fluzone) 05/05/2023,03/08/2021,03/09/2020 Seasonal Influenza, Quadriva lent, No Preserve, IM 02/28/2022,03/30/2019,03/26/2018 Seasonal Influenza, Recombin ant, RIV4, PF, (Flublock) 03/31/2019 TDAP (age 10 and older)(Boostrix) 08/15/2022 TDAP, Age 7 and older, IM (Adacel) 11/03/2011 documented as of this encounter Social History Tobacco Use Types Packs/Day Years Used Date Smoking Tobacco: Former Cigarettes 1 20.1 0 08/19/1998 - 09/16/2018 Smokeless Tobacco: Never Comments:No passive smoke ex posures Alcohol Use Standard Drinks/Week Comments Not Currently 0 (1 standard drink = 0.6 oz pur e alcohol) AUDIT-C Answer Date Recorded Frequency of Alcohol Consumption Monthly or less 01/06/2019 Average Number of Drinks Not on file 019 Frequency of Binge Drinking Weekly 12/19 PHQ-2 Answer Date Recorded PHQ Adult Total Score 1 11/19/2023 Hunger Vital Sign Answer Date Recorded Within the past 12 months, y ou worried that your food would run out before you got the money to buy more. Never true 11/19/19 24 Within the past 12 months, t he food you bought just didn't last and you didn't have money to get more. Never true 11/19/2023 Childcare Answer Date Recorded Do you feel overwhelmed with taking care of a child, family member or friend? No 11/19/2023 Does your family need help f inding childcare? (Household - for ages 0-17 years) Not on file 11/19/2023 Clothing Answer Date Recorded Have you been unable to get clothing when it was really needed? No 11/19/2023 Is your family able to get c lothes or diapers when needed? (Household - for ages 0-17 years) Not on file 11/19/2023 Personal Safety Answer Date Recorded Do you feel unsafe or have concerns for your saf ety? No 11/19/2023 Do you have concerns for you r family's safety? (Household - for ages 0-17 years) Not on file 11/19/2023 Utilities Answer Date Recorded Do you have trouble paying y our heating, water, or electric bill? No 11/19/2023 Is your family able to pay t he heat, water, or electric bill? (Household - for ages 0-17 years) Not on file 11/19/2023 Does your family have access to good internet? (Household - for ages 0-17 years) Not on file 11/19/2023 Employment Status Answer Date Recorded Are you unemployed or without regular income? No 11/19/2023 Does the household have a re gular source of income? (Household - for ages 0-17 years) Not on file 11/19/2023 Social Connections Answer Date Recorded How often do you feel lonely or isolated from th ose around you? Never 11/19/2023 Financial Resource Strain Answer Date R ecorded Do you have any trouble payi ng for your medications, or do you think you might in the future? No 11/19/2023 Does your family have troubl e paying for medicine? (Household - for ages 0-17 years) Not on file 11/19/2023 Transportation Needs Answer Date Record ed READ ONLY Do you have troubl e getting a ride to medical visits or work? Never True 11/19/2023 Does your family have a hard time getting a ride to doctors visits? (Household - for ages 0-17 years) Not on file 11/19/2023 Has lack of transportation k ept you from medical appointments, meetings, work, or from getting things needed for daily living? Check all that apply. (Adult - for ages 18 years and over) Not on file 11/19/2023 Do you (or your family) have trouble finding or paying for a ride (transportation)? (Household - for ages 0-17 years) Not on file 11/19/2023 Housing Stability Answer Date Recorded Do you currently live in a s helter or have no steady place to sleep at night? No 11/19/2023 READ ONLY Do you think you a re at risk of becoming homeless? No 11/19/2023 Does your family worry about paying for your home or becoming homeless? (Household - for ages 0-17 years) Not on file 0 11/19/2023 Are you homeless or worried that you might be in the future? (Adult - for ages 18 years and over) Not on file Are you (or your family) tenzin eless or worried that you might be in the future? (Household - for ages 0-17 years) Not on file Food Insecurity Answer Date Recorded Do you need food for this week? No 11/19/2023 Are you able to get enough f ood for your family? (Household - for ages 0-17 years) Not on file 11/19/2023 Does your family need food t his week? (Household - for ages 0-17 years) Not on file 11/19/2023 Do you always have enough fo od for your family? (Household - for ages 0-17 years) Not on file 11/19/2023 Sex and Gender Information Value Date Recorded Sex Assigned at Female 09/20/2018 6:15 PM EDT Gender Identity Female 09/20/2018 6:15 PM EDT Sexual Orientation Bisexual 09/20/2018 6: 15 PM EDT Job Start Date Occupation Industry Not on file Not on file Not on file documented as of this encounter Plan of Treatment Upcoming Encounters Date Type Department Care Team (Late st Contact Info) Description 01/27/2024 6:00 PM EDT Telemedicine General Internal Medicine [facility] [address] [place] [address] Dayanara Green MD 200 [facility] [place] [address] 02/10/2024 12:30 PM EDT Hospital Encounter [facility] Suite, [facility] [address], [address] [place] [address] Yury Lieberman MD [address] [place] [phone] 02/10/2024 12:30 PM EDT - 02/10/2024 1:15 PM EDT Surgery [facility] Endoscopy Suite, [facility] [address], [address] [facility] [place] [address] Yury Lieberman MD [address] [place] [phone] COLONOSCOPY FLEXIBLE PROXIMAL DIAGNOSTIC 05/25/2024 12:30 PM EST Telemedicine Gastroenterology, [facility] 132 [facility] [place] [address] Anaya Pardo CRNP 132 [facility] [place] [address] 06/16/2024 11:20 AM EST Office Visit Neurology [facility] [address] [place] [address] Germán Martines, 200 [facility] [place] [address] 07/03/2024 2:20 PM EST Office Visit Otolaryngology, [place] [address] [place] [address] Ravin Kam PA-C [address] [place] [address] 07/03/2024 2:30 PM EST Office Visit Otolaryngology, [place] [address] [place] [address] [facility] [address] [facility] [place] [address] Pending Results Name Type Priority Associated Diagnoses Date /Time GASTROINTESTINAL PATHOGEN PANEL, STOOL Lab Routine Diarrhea, unspecified type 01/25/2024 11:06 AM EDT GASTROINTESTINAL PATHOGEN PANEL PCR Lab Routine Diarrhea, unspecified type 01/25/2024 11:06 AM EDT GASTROINTESTINAL PATHOGEN PANEL CULTURE Lab Routine Diarrhea, unspecified type 01/25/2024 11:06 AM EDT CLOSTRIDIUM DIFFICILE, PCR Lab Routine Diarrhea, unspecified type 01/25/2024 11:06 AM EDT Scheduled Procedures Name Priority Associated Diagnoses Date/Ti me COLONOSCOPY FLEXIBLE PROXIMAL DIAGNOSTIC Special screening for malignant neoplasms, colon 02/10/2024 12:30 PM EDT Health Maintenance Due Date Last Done Comments HIV Screening 1989 Hepatitis B Vaccine (1 of 3 - 19+ 3-dose series) 1993 Cologuard 2019 Fecal Occult Blood Test 2019 Sigmoidoscopy 2019 COVID-19 Vaccine ( season) 2023 02/28/2022, 04/24/2021, 08/07/2020, Additional history exists Influenza Vaccine (FLU shot) (#1) 2024 05/05/2023, 02/28/2022, 03/08/2021, Additional history exists TSH 03/08/2024 03/08/2023, 0702/2023, 09/01/2022, Additional history exists Mammogram 04/05/2024 04/05/2023, 03/21, 04/02/2022, Additional history exists Depression Monitoring 11/18/2024 11/19/2023 Pap Smear 09/28/2026 09/29/2023, 02/12/2021, 01/06/2019 Colonoscopy 12/12/2026 12/12/2021, 12/12/2021 Colorectal Cancer Screening 12/12/2026 Diabetes Screening 01/02/2027 01/03/2024, 1 , 03/25/2023, Additional history exists Lipid Panel 01/07/2028 01/06/2023, 07/15/2020 Cervical Cancer Screening 09/28/2028 HPV/Co-Test 09/28/2028 09/29/2023 DTaP,Tdap,and Td Vaccines (3 - Td or Tdap) 08/15/2032 08/15/2022, 11/03/2011 Pneumococcal Vaccine: Pediatrics (0 to 5 Years) and At-Risk Patients (6 to 64 Years) Aged Out 07/13/2018 No longer eligible based on patient's age to complete this topic RETIRED - COLONOSCOPY-EVERY 5 YRS AGES 18-100 Discontinued 12/12/2021, 12/12/2021 HPV (Gardasil) Vaccine Aged Out No lo nger eligible based on patient's age to complete this topic MENINGOCOCCAL (MENACTRA/MENVEO) Aged Out No longer eligible based on patient's age to complete this topic documented as of this encounter Medical Devices Not on filedocumented as of this encounter Visit Diagnoses Diagnosis Diarrhea, unspecified type Special screening for malignant neoplasms, colon documented in this encounter Additional Health Concerns Infection Onset Date Last Indicated Resolved Time Gastrointestinal Rule-Out 01/25/2024 01/25/2024 C. difficile Rule-Out 01/25/2024 01/25/2024 documented as of this encounter Advance Directives Healthcare Agents on File Name Relationship Healthcare Agent Relationshi p Communication Samuel Krystle Significant Other Health Care Re presentative (appointed verbally by patient or by statute hierarchy) Care Teams Plum Packer Relationship Specialty Start Date End Date Javon Garcia III, MD [address] [place] [address] PCP - General Family Medicine 09/20/18 documented as of this encounter
--- OUTSIDE RECORDS SUMMARY | 2024-02-04 03:51 | External Medical Summary | Summary of Care ---
Author Name Unknown Organization [facility] Address [address] [place] [address] Phone [phone] Care Team Providers Care Customer Support Advisor Name Role Phone Jose YNA MD, Javon Stahl Primary Care Provider [phone] Encounter Details Date Type Department Care Team (Late st Contact Info) Description 01/26/2024 Orders Only Gastroenterology, [address] [address] Anaya Pardo CRNP [address] [place] [address] Allergies Active Allergy Reactions Criticality Noted Date Comments Metoclopramide Hcl 06/01/2018 Pt felt like she crawling out of skin documented as of this encounter (statuses as of 01/26/2024) Medications Medication Sig Dispensed Refills Start Date [...] the morning.. 90 Tablet 1 01/24/2024 Active Fidaxomicin 200 MG Oral Tablet (Dificid) Take 200mg by mouth twice daily for 5 days, then once every other day for 20 days 20 Tablet 01/26/2024 Active Hospital, Clinic, or Other Facility Administered [...] as of this encounter (statuses as of 01/26/2024) Active Problems Problem Noted Date Diagnosed Date [...] as of this encounter (statuses as of 01/26/2024) Resolved Problems Problem Noted Date Diagnosed Date Resolved Date COVID-19 virus infection 04/21/202301/2024 Alzheimer's disease, unspecified (CODE) 03/24/2023 09/06/2023 Food insecurity 04/28/2021 06/04/2022 Overview: Per 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 09/16/2015 11/27/2023 documented as of this encounter (statuses as of 01/26/2024) Immunizations Name Administration Dates Next Due COVID-19 [...] 6:00 PM EDT Telemedicine General Internal Medicine [facility] 200 [facility] [place] [address] Dayanara Green MD 200 [place] [address] 02/10/2024 12:30 PM EDT Hospital Encounter [facility], Endoscopy Suite, [address]AM 1, [address] [place] [address] Yury Lieberman MD [address] [place] [phone] 02/10/2024 12:30 PM EDT - 02/10/2024 1:15 PM EDT Surgery [facility] [facility], Endoscopy Suite, [facility]AM 1, [address] [facility] [place] [address] Yury Lieberman MD [address] [place] [phone] COLONOSCOPY FLEXIBLE PROXIMAL DIAGNOSTIC 05/25/2024 12:30 PM EST Telemedicine Gastroenterology, [facility] [address] [address] Anaya Pardo CRNP [address] [place] [address] 06/16/2024 11:20 AM EST Office Visit Neurology [facility] 200 [facility] [place], [place] [address] Germán Martines, [address] [place], [place] [address] 07/03/2024 2:20 PM EST Office Visit Otolaryngology, [place] [address] [address] [place] [address] Ravin Kam PA-C [address] [place] [address] 07/03/2024 2:30 PM EST Office Visit Otolaryngology, [place] [address] [place] [address] [facility], Audiology [facility] 132 [facility] [place] [address] Scheduled Procedures Name Priority Associated Diagnoses Date/Ti [...] 03/08/2021, Additional history exists TSH 03/08/2024 03/08/2023, 12/19, 09/01/2022, Additional history exists Mammogram 04/05/2024 04/05/2023, [...] Not on filedocumented as of this encounter Additional Health Concerns Infection Onset Date Last Indicated Resolved Time Gastrointestinal Rule-Out 01/25/2024 01/25/2024 10:00 AM EDT C. difficile 01/25/2024 01/25/2024 documented as of this encounter Advance Directives Healthcare Agents on File Name Relationship Healthcare Agent Relationshi p Communication Samuel Krystle Significant Other Health Care Re presentative (appointed verbally by patient or by statute hierarchy) Care Teams Customer Support Advisor Relationship Specialty Start Date End Date Javon Garcia III, MD [address] [place] [address] PCP - General Family Medicine 09/20/18 documented as of this encounter
--- OUTSIDE RECORDS SUMMARY | 2024-02-04 03:51 | External Medical Summary | Summary of Care ---
Author Name Unknown Organization [facility] Address [address] [place] [address] Phone [phone] Care Team Providers Care Engine Research Engineer Name Role Phone Jose YAN MD, Javon Stahl Primary Care Provider [phone] Reason for Visit * Reason Comments eRx-Medication Refill Encounter Details Date Type Department Care Team (Late st Contact Info) Description 01/31/[address] [facility] [address] [place] [address] Germán Martines, DO [address] [place] [address] Chronic migraine without aura without status migrainosus, not intractable Allergies Active Allergy Reactions Criticality Noted Date Comments Metoclopramide Hcl 06/01/2018 Pt felt like she crawling out of skin documented as of this encounter (statuses as of 02/02/2024) Medications Medication Sig Dispensed Refills Start Date End Date Status Fluticasone Propionate 50 MCG/ACT Nasal Suspension (Flonase) Administer 2 Sprays into each nostril in the morning and 2 Sprays before bedtime. 18.2 mL 6 10/16/19 21 Active Ondansetron HCl 4 MG Oral TabletIndications: Nausea and vomiting, intractability of vomiting not specified, unspecified vomiting type Take by mouth 1 Tablet every 6 hours as needed for Nausea. 30 Tablet 2 07/18/19 22 Active Vitamin D-3 25 MCG (1000 UT) Oral Capsule Take 1 Capsule by mouth in the morning. Active Ibuprofen 200 MG Oral Capsule Take 2 Capsules by mouth every 6 hours as needed. Active Belsomra 5 MG Oral Tablet at bedtime. 12/24/19 23 Active medroxyPROGESTERon e Acetate 2.5 MG Oral Tablet (Provera)Indicatio ns:Symptomatic menopausal or female climacteric states Take 1 Tablet by mouth daily. 90 Tablet 3 01/07/20 23 Active SUMAtriptan Succinate 6 MG/0.5ML Subcutaneous Solution Auto-injector (Imitrex)Indicatio ns:Chronic migraine without aura without status migrainosus, not intractable inject one syringe at onset of headache and may repeat in 2 hours if needed- max of two syringes per day 6 mL 3 04/07/20 23 Active Meclizine HCl 25 MG Oral Tablet (Antivert) TAKE 1 TABLET BY MOUTH THREE TIMES DAILY IF NEEDED for dizziness (morning, noon, evening) 10 Tablet 1 05/03/20 23 Active Levothyroxine Sodium 50 MCG Oral Tablet (Levoxyl)Indicatio ns:Hypothyroidism, unspecified type Take 1 tablet by mouth daily first thing in the morning at least 30 minutes prior to breakfast or other meds. 90 Tablet 2 06/04/20 23 Active Auvelity 45-105 MG Oral Tablet Extended Release (Dextromethorphan- buPROPion ER) Take 1 Tablet by mouth in the morning and 1 Tablet before bedtime. Active Caplyta 42 MG Oral Capsule (Lumateperone Tosylate) Take 1 Capsule by mouth at bedtime. Active Ventolin HFA 108 (90 Base) MCG/ACT Inhalation Aerosol Solution Inhale 2 Puffs by mouth every 4 hours as needed (wheezing, chest tightness or cough). 18 g 08/30/19 24 Active Estradiol 0.05 MG/24HR Transdermal Patch Twice WeeklyIndications: Symptomatic menopausal or female climacteric states Apply one patch to trunk, abdomen or buttocks, change twice per week. 8 Patch 3 10/20/19 24 Active LORazepam 0.5 MG Oral Tablet (Ativan) 11/04/19 24 Active Sucralfate 1 GM/10ML Oral Suspension (Carafate) 4 times a day. 11/16/19 24 Active oxyCODONE-Acetamin ophen 5-325 MG Oral Tablet (Percocet) Take 1 Tablet by mouth every 6 hours as needed. Using 1/2 tab 11/16/19 24 Active Zonisamide 50 MG Oral Capsule (Zonegran)Indicati ons:Chronic migraine without aura without status migrainosus, not intractable TAKE 1 CAPSULE IN MORNING AND 2 CAPSULES AT NIGHT 90 Capsule 5 12/10/19 24 Active Cholestyramine 4 GM Oral Packet (Questran) Take 1 Packet by mouth in the morning and 1 Packet before bedtime. mixed with liquid.. 60 Packet 2 01/05/20 24 Active Pantoprazole Sodium 40 MG Oral Tablet Delayed Release (Protonix)Indicati ons:Gastroesophage al reflux disease without esophagitis Take 1 Tablet by mouth in the morning. In the morning.. 90 Tablet 1 01/24/20 24 Active Fidaxomicin 200 MG Oral Tablet (Dificid) Take 200mg by mouth twice daily for 5 days, then once every other day for 20 days 20 Tablet 01/26/20 24 Active Dicyclomine HCl 10 MG Oral Capsule (Bentyl)Indication s:Pain of upper abdomen Take 1 Capsule by mouth 3 times a day as needed for Pain or Gas. 100 Capsule 1 01/27/20 24 Active Probiotic & Acidophilus Ex St Oral CapsuleIndications :Diarrhea, unspecified type Take 1 Capsule by mouth in the morning and 1 Capsule at noon and 1 Capsule in the evening. Take with meals. 60 Capsule 1 01/27/20 24 Active Aimovig 70 MG/ML Subcutaneous Solution Auto-injector (Erenumab-aooe)Ind ications:Chronic migraine without aura without status migrainosus, not intractable One injection under the skin (70 mg) monthly for migraine prevention. 1 mL 02/02/20 24 Active Ajovy 225 MG/1.5ML Subcutaneous Solution Prefilled Syringe (Fremanezumab-vfrm )Indications:Chron ic migraine without aura without status migrainosus, not intractable inject 4.5 milliliters subcutaneously every 3 months 4.5 mL 3 11/14/19 23 024 Discontinued Hospital, Clinic, or Other Facility Administered Medication [...] as of this encounter (statuses as of 02/02/2024) Active Problems Problem Noted Date Diagnosed Date [...] as of this encounter (statuses as of 02/02/2024) Resolved Problems Problem Noted Date Diagnosed Date Resolved Date COVID-19 virus infection 04/21/202301/2024 Alzheimer's disease, unspecified (CODE) 03/24/2023 09/06/2023 Food insecurity 04/28/2021 06/04/2022 Overview: Per 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 Will switch to Aimovig 70 mg monthly. * Telephone Encounter - Ember Arzola LPN - 02/01/2024 11:32 AM EDT Can Aimovig be sent to the pharmacy, will most likely need an auth * Telephone Encounter - Jose Luis Nunez RP - 02/01/2024 11:25 AM EDTRefused Prescriptions: Disp Refills Ajovy 225 MG/1.5ML Subcutaneous Solution P*4.5 mL 1 Sig: INJECT 4.5 mL SUBCUTANEOUSLY ONCE EVERY 3 MONTHS Refused By: JOSE LUIS NUNEZ Reason for Refusal: Refill Not Appropriate Reason for Refusal Comment: switching to aimovig * Telephone Encounter - Jose Luis Nunez RP - 02/01/2024 11:23 AM EDT Refused request for Ajovy, per 01/30/24 pt message encounter, looks like pt will be switching to Aimovig 70 mg monthly. Please send script if appropriate Thanks, Jose Luis Nunez, PharmD Clinical Pharmacist [facility] ([facility]) [phone] 02/01/2024,11:24 AM * Telephone Encounter - Noemy Ramos - 01/31/2024 8:33 PM EDTPending Prescriptions: Disp Refills Ajovy 225 MG/1.5ML Subcutaneous Solution P*4.5 mL 0 Sig: INJECT 4.5 mL SUBCUTANEOUSLY ONCE EVERY 3 MONTHS * Telephone Encounter - Noemy Ramos two - 01/31/2024 8:32 PM EDT Did you pend patient's preferred pharmacy and medication before forwarding?yes Pharmacy: [id number] Pending Prescriptions: Disp Refills Ajovy 225 MG/1.5ML Subcutaneous Solution *4.5 mL 0 Sig: INJECT 4.5 mL SUBCUTANEOUSLY ONCE EVERY 3 MONTHS Last Visit: 07/06/2023 (in office), 12/10/2023 (telemedicine) Next Visit: 06/16/2024 If no future appointments scheduled, and last appointment is greater than a year ago, please schedule patient for a follow-up appointment Last date the medication was ordered: 11/13/2022 Is this request for a controlled substance?No Urine Drug Screen:No results found for this or any previous visit. Patient Phone Numbers Labs: Lab Results Component Value Date/Time CREAT 0.74 01/03/2024 01:38 PM CREAT 1.0 07/15/2020 10:46 AM POTASSIUM 3.7 01/03/2024 01:38 PM POTASSIUM 4.1 07/15/2020 10:46 AM TSH 1.50 03/08/2023 03:53 PM TSH 1.20 12/02/2019 11:08 AM LDLCALC 113 01/06/2023 07:08 AM LDLCALC 105 07/15/2020 10:46 AM LDLDIRECT NOT APPLICABLE 07/15/2020 10:46 AM ALT 15 01/03/2024 01:38 PM ALT 12 07/15/2020 10:46 AM HGBA1C 5.3 03/25/2023 07:08 AM documented in this encounter Plan of Treatment Upcoming Encounters Date Type Department Care Team (Late st Contact Info) Description 02/10/2024 12:30 PM EDT Hospital Encounter [facility]O [facility], Endoscopy Suite, [facility] 1, [address] [place] [address] Yury Lieberman MD [address] [place] [address] 02/10/2024 12:30 PM EDT - 02/10/2024 1:15 PM EDT Surgery ENDO [facility], Endoscopy Suite, [facility] 1, [address] [place] [address] Yury Lieberman MD [address] [place] [address] COLONOSCOPY FLEXIBLE PROXIMAL DIAGNOSTIC 05/25/2024 12:30 PM EST Telemedicine Gastroenterology, [facility] [address] [facility] [place] [address] Anaya Pardo CRNP [address] [facility] [place] [address] 06/16/2024 11:20 AM EST Office Visit Neurology [facility] [address] [place] [address] Germán Martines, DO [address] [place] [address] 07/03/2024 2:20 PM EST [facility] [place] [address] [place] [address] Ravin Kam PA-C [address] [place] [address] 07/03/2024 2:30 PM EST Office [facility] [place] [address] [place] [address] [facility] [address] [facility] [place] [address] Scheduled Procedures Name Priority Associated Diagnoses Date/Ti [...] Monitoring 11/18/2024 11/19/2023 Pap Smear 09/28/2026 09/29/2023, 12/2021, 01/06/2019 Colonoscopy 12/12/2026 12/12/2021, 12/12/2021 Colorectal Cancer [...] as of this encounter Visit Diagnoses Diagnosis Chronic migraine without aura without status migrainosus, not intractable Chronic migraine without aura, without mention of intractable migraine without mention of status migrainosus Special screening for malignant neoplasms, colon documented in this encounter Additional Health Concerns Infection Onset Date Last Indicated Resolved Time C. difficile 01/25/2024 01/25/2024 documented as of this encounter Advance Directives Healthcare Agents on File Name Relationship Healthcare Agent Relationshi p Communication Samuel Dalton Significant Other Health Care Re presentative (appointed verbally by patient or by statute hierarchy) Care Teams Engine Research Engineer Relationship Specialty Start Date End Date Javon Garcia III, MD [address] [facility] [place] [address] PCP - General Family Medicine 09/20/18 documented as of this encounter
--- OUTSIDE RECORDS SUMMARY | 2024-02-04 03:51 | External Medical Summary ---
Author Name Unknown Address Unknown Organization K01:[facility] [place] [facility] [place] [address] Laboratory Report Ordering Provider Test Date Status ALYSIA KAPLANN 01/25/2024 11:06:32 Final Observation Date Value Abnormality Reference (Units) Status Source 01/25/2024 11:06:32 Liquid Final Clostridioides difficile toxin and BI-[id number] strain DNA panel - Stool by CATHERINE with probe detection 01/25/2024 11:06:32 Positive for C. difficile toxin B gene DNA by PCR (Amplified Probe). Presumptive negative for C. difficile 027-NAP1-B1 strain by PCR (Amplified Probe). Abnormal Negative Final Performing Location [facility] [place] [address] [facility] [address]
--- OUTSIDE RECORDS SUMMARY | 2024-02-04 03:51 | External Medical Summary | Summary of Care ---
Author Name Unknown Organization [facility] Address [address] [place] [address] Phone [phone] Care Team Providers Care Tankroom Worker Name Role Phone Jose YAN MD, Javon Stahl Primary Care Provider [phone] Reason for Visit * Reason Comments Outpatient Testing Encounter Details Date Type Department Care Team (Late st Contact Info) Description 01/24/2024 3:10 PM EDT Laboratory Laboratory [facility] [address] [place] [address] [facility] [address] [place] [address] Arrived Allergies Active Allergy Reactions Criticality Noted Date Comments Metoclopramide Hcl 06/01/2018 Pt felt like she crawling out of skin documented as of this encounter (statuses as of 01/24/2024) Medications Medication Sig Dispensed Refills Start Date [...] as of this encounter (statuses as of 01/24/2024) Active Problems Problem Noted Date Diagnosed Date [...] as of this encounter (statuses as of 01/24/2024) Resolved Problems Problem Noted Date Diagnosed Date Resolved Date COVID-19 virus infection 04/21/202301/2024 Alzheimer's disease, unspecified (CODE) 03/24/2023 09/06/2023 Food insecurity 04/28/2021 06/04/2022 Overview: Per [facility] Protocol Bipolar 2 disorder 06/01/2018 Intractable migraine with au ra without status migrainosus 06/01/2018 11/27/2023 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 09/16/2015 11/27/2023 documented as of this encounter (statuses as of 01/24/2024) Immunizations Name Administration Dates Next Due COVID-19 [...] [facility], Endoscopy Suite, [facility] 1, [address] [place] [address] Yury Lieberman MD [address] [place] [address] 02/10/2024 12:30 PM EDT - 02/10/2024 1:15 PM EDT Surgery [facility], [facility] 1, [address] [place] [address] Yury Lieberman MD [address] [place] [address] COLONOSCOPY FLEXIBLE PROXIMAL DIAGNOSTIC 05/25/2024 12:30 PM EST Telemedicine Gastroenterology, [facility] [address] [facility] [place] [address] Anaya Pardo CRNP [address] [place] [address] 06/16/2024 11:20 AM EST Office Visit Neurology [facility] [address] [facility] [place] [address] Germán Martines, [address] [place] [address] 07/03/2024 2:20 PM EST Office Visit Otolaryngology, [place] [address] [place] [id number] Ravin Kam PA-C [address] [place] [address] 07/03/2024 2:30 PM EST Office Visit Otolaryngology, [place] [address] [place] [address] [facility], [facility] [place] [address] [facility] [place] [address] Scheduled Procedures Name Priority Associated Diagnoses Date/Ti [...] Monitoring 11/18/2024 11/19/2023 Pap Smear 09/28/2026 09/29/2023, 02/0 12/2021, 01/06/2019 Colonoscopy 12/12/2026 12/12/2021, 12/12/2021 Colorectal [...] Not on filedocumented as of this encounter Advance Directives Healthcare Agents on File Name Relationship Healthcare Agent Relationshi p Communication Samuel Dalton Significant Other Health Care Re presentative (appointed verbally by patient or by statute hierarchy) Care Teams Tankroom Worker Relationship Specialty Start Date End Date Javon Garcia III, MD [address] [place] [address] PCP - General Family Medicine 09/20/18 documented as of this encounter
--- OUTSIDE RECORDS SUMMARY | 2024-02-04 03:51 | External Medical Summary | Summary of Care ---
Author Name Unknown Organization [facility] Address [address] [place] [address] Phone [phone] Care Team Providers Care Professor Of Latin American Studies Name Role Phone Jose YAN MD, Javon Stahl Primary Care Provider [phone] Reason for Visit * Reason Onset Date Comments Appointment 01/06/2024 Ret gastro Encounter Details Date Type Department Care Team (Late st Contact Info) Description 01/06/2024 Telephone Gastroenterology, [facility] [address] [place] [address] Anaya Pardo CRNP [address] [place] [address] Appointment (Ret gastro) Allergies Active Allergy Reactions Criticality Noted Date Comments Metoclopramide Hcl 06/01/2018 Pt felt like she crawling out of skin documented as of this encounter (statuses as of 01/26/2024) Medications Medication Sig Dispensed Refills Start Date End Date Status Fluticasone Propionate 50 MCG/ACT Nasal Suspension (Flonase) Administer 2 Sprays into each nostril in the morning and 2 Sprays before bedtime. 18.2 mL 6 1 Active Ondansetron HCl 4 MG Oral TabletIndications: Nausea and vomiting, intractability of vomiting not specified, unspecified vomiting type Take by mouth 1 Tablet every 6 hours as needed for Nausea. 30 Tablet 2 2 Active Vitamin D-3 25 MCG (1000 UT) Oral Capsule Take 1 Capsule by mouth in the morning. Active Ibuprofen 200 MG Oral Capsule Take 2 Capsules by mouth every 6 hours as needed. Active Ajovy 225 MG/1.5ML Subcutaneous Solution Prefilled Syringe (Freuriezumab-vfrm )Indications:Chron ic migraine without aura without status migrainosus, not intractable inject 4.5 milliliters subcutaneously every 3 months 4.5 mL 3 3 Active Belsomra 5 MG Oral Tablet at bedtime. 3 Active medroxyPROGESTERon e Acetate 2.5 MG Oral Tablet (Provera)Indicatio ns:Symptomatic menopausal or female climacteric states Take 1 Tablet by mouth daily. 90 Tablet 3 3 Active SUMAtriptan Succinate 6 MG/0.5ML Subcutaneous Solution Auto-injector (Imitrex)Indicatio ns:Chronic migraine without aura without status migrainosus, not intractable inject one syringe at onset of headache and may repeat in 2 hours if needed- max of two syringes per day 6 mL 3 3 Active Meclizine HCl 25 MG Oral Tablet (Antivert) TAKE 1 TABLET BY MOUTH THREE TIMES DAILY IF NEEDED for dizziness (morning, noon, evening) 10 Tablet 1 3 Active Levothyroxine Sodium 50 MCG Oral Tablet (Levoxyl)Indicatio ns:Hypothyroidism, unspecified type Take 1 tablet by mouth daily first thing in the morning at least 30 minutes prior to breakfast or other meds. 90 Tablet 2 3 Active Auvelity 45-105 MG Oral Tablet Extended [...] (wheezing, chest tightness or cough). 18 g 4 Active Estradiol 0.05 MG/24HR Transdermal Patch Twice WeeklyIndications: Symptomatic menopausal or female climacteric states Apply one patch to trunk, abdomen or buttocks, change twice per week. 8 Patch 3 4 Active Dicyclomine HCl 10 MG Oral Capsule (Bentyl) 1 Capsule in the morning and 1 Capsule at noon and 1 Capsule in the evening and 1 Capsule before bedtime. 4 Active LORazepam 0.5 MG Oral Tablet (Ativan) 4 Active Sucralfate 1 GM/10ML Oral Suspension (Carafate) 4 times a day. 4 Active oxyCODONE-Acetamin ophen 5-325 MG Oral Tablet (Percocet) Take 1 Tablet by mouth every 6 hours as needed. Using 1/2 tab 4 Active Zonisamide 50 MG Oral Capsule (Zonegran)Indicati ons:Chronic migraine without aura without status migrainosus, not intractable TAKE 1 CAPSULE IN MORNING AND 2 CAPSULES AT NIGHT 90 Capsule 5 4 Active Cholestyramine 4 GM Oral Packet (Questran) Take 1 Packet by mouth in the morning and 1 Packet before bedtime. mixed with liquid.. 60 Packet 2 4 Active Pantoprazole Sodium 40 MG Oral Tablet Delayed Release (Protonix) Take 1 Tablet by mouth in the morning. 4 01/24/20 24 Discontinue d(Refill) Vancomycin HCl 125 MG Oral Capsule (Vancocin)Indicati ons:Diarrhea, unspecified type,History of Clostridioides difficile colitis Take 1 Capsule by mouth every 6 hours for 10 days. 40 Capsule 4 01/19/20 24 Hospital, Clinic, or Other Facility Administered Medication [...] encounter Miscellaneous Notes * Telephone Encounter - Courtney Elizabeth OSA - 01/26/2024 2:19 PM EDT Scheduled JUANA James 01/26/2024 2:19 PM * Telephone Encounter - Adriana Ackerman OSA - 01/06/2024 9:00 AM EDT Lm for pt to return call to schedule below appt via video please schedule when pt returns call. Return in about 3 months (around 04/06/2024). documented in this encounter Plan of Treatment Upcoming Encounters Date Type Department Care Team (Late st Contact Info) Description 01/27/2024 6:00 PM EDT Telemedicine General Internal Medicine [facility] [place] [address] [place], [place] [address] Dayanara Green MD [address] [place] [address] 02/10/2024 12:30 PM EDT Hospital Encounter [facility], Endoscopy Suite, [facility]AM 1, [address] [place], [place] [id number] Yury Lieberman MD [address] [place] [address] 02/10/2024 12:30 PM EDT - 02/10/2024 1:15 PM EDT Surgery ENDO [facility] [place], Endoscopy Suite, [facility]AM 1, [address] [place] [address] Yury Lieberman MD [address] [place] [address] COLONOSCOPY FLEXIBLE PROXIMAL DIAGNOSTIC 05/25/2024 12:30 PM EST Telemedicine Gastroenterology, [facility] [address] [place] [address] Anaya Pardo CRNP [address] [facility] [place] [address] 06/16/2024 11:20 AM EST Office Visit Neurology [facility] [address] [place] [address] Germán Martines, DO [address] [place] [address] 07/03/2024 2:20 PM EST Office [facility] [place] [address] [place] [address] Ravin Kam PA-C [address] [place] [address] 07/03/2024 2:30 PM EST Office [facility] [place] [address] [address] [facility] Audiology [facility] [address] [facility] [place] [address] Scheduled Procedures Name Priority Associated Diagnoses Date/Ti [...] 01/25/2024 01/25/2024 10:00 AM EDT C. difficile Rule-Out 01/25/2024 01/25/20242023 6:08 PM EDT C. difficile 01/25/2024 01/25/2024 documented as of this encounter Advance Directives Healthcare Agents on File Name Relationship Healthcare Agent Relationshi p Communication Samuel Krystle Significant Other Health Care Re presentative (appointed verbally by patient or by statute hierarchy) Care Teams Professor Of Latin American Studies Relationship Specialty Start Date End Date Jose YAN, Javon Stahl MD [address] [place] [address] PCP - General Family Medicine 09/20/18 documented as of this encounter
--- OUTSIDE RECORDS SUMMARY | 2024-02-04 03:52 | External Medical Summary | Summary of Care ---
Author Name Unknown Organization [facility] Address [address] [place] [address] Phone [phone] Care Team Providers Care Yeast Tender Name Role Phone Jose YAN MD, Javon Stahl Primary Care Provider [phone] Reason for Visit * Auth/Cert Specialty Diagnoses / Procedures Referred By Tenisha t Referred To Contact Diagnoses Dilated cbd, acquired Dilated cbd, acquired [K83.8] Procedures EGD, W/ENDOSCOPIC US ESOPHAGOGASTRODUODENOSCOPY (EGD), FLEXIBLE, TRANSORAL, ENDOSCOPIC ULTRASOUND Franky Alcazar MD [address] [place] [address] End[facility] [address] [facility] [place] [phone] Referral ID Status Reason Start Date Expiration Date Visits Re quested Visits Authorized [id number] Encounter Details Date Type Department Care Team (Latest Contact Info) Description 01/19/2024 12:45 PM EDT - 01/19/2024 2:13 PM EDT Hospital Encounter [facility], Endoscopy Room [facility] [address] [place] [phone] Franky Alcazar MD [address] [place] [id number] Various: UGI,UEUS Discharge Disposition: Home - Self Care Allergies Active Allergy Reactions Criticality Noted Date Comments Metoclopramide Hcl 06/01/2018 Pt felt like she crawling out of skin documented as of this encounter (statuses as of 01/20/2024) Medications Medication Sig Dispensed Refills Start Date [...] (Carafate) 4 times a day. 11/16/2023 Active Pantoprazole Sodium 40 MG Oral Tablet Delayed Release (Protonix) Take 1 Tablet by mouth in the morning. 11/16/2023 Active oxyCODONE-Acetamino phen 5-325 MG Oral [...] with liquid.. 60 Packet 2 01/05/2024 Active Vancomycin HCl 125 MG Oral Capsule (Vancocin)Indicatio ns:Diarrhea, unspecified type,History of Clostridioides difficile colitis Take 1 Capsule by mouth every 6 hours for 10 days. 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 09/16/2015 11/27/2023 documented as of this encounter (statuses as of 01/20/2024) Immunizations Name Administration Dates Next Due COVID-19 [...] on file documented as of this encounter Last Filed Vital Signs Vital Sign Reading Time Taken Comments Blood Pressure 123/78 01/19/2024 1:54 PM EDT Pulse 76 01/19/2024 1:54 PM EDT Temperature 36.4 C (97.6 F) 01/19/2024 1:10 PM ED T Respiratory Rate 16 01/19/2024 1:54 PM EDT Oxygen Saturation 97% 01/19/2024 1:54 PM EDT Inhaled Oxygen Concentration - - Weight 64.4 kg (142 lb) 01/10/2024 1:14 PM EDT Height 157.5 cm (5' 2") 01/10/2024 1:14 PM EDT Body Mass Index 25.97 01/10/2024 1:14 PM EDT documented in this encounter H&P Notes * Franky Alcazar MD - 01/19/2024 12:58 PM EDT Endoscopy Pre-Procedure Assessment Name: Rosey Hua Date: 01/19/2024 Time: 12:58 PM Procedure(s): Endoscopic Ultrasound; with Indication(s) of evaluation and management of acute or chronic pancreatitis Endoscopy Pre-Procedure Assessment: Prior to the procedure, the patient was identified. The patient's history, medications and allergies were reviewed as per the Anesthesia Assessment. The patient is competent. The risks and benefits of the proposed procedure and the planned sedation were discussed with the patient. All questions were answered and informed consent for the procedure was obtained. Ht 1.575 m (5' 2") | Wt 64.4 kg (142 lb) | LMP (LMP Unknown) | BMI 25.97 kg/m | BSA 1.68 m Review of patient's allergies indicates: Allergen Reactions Reglan [Metoclopramide Hcl] Pt felt like she crawling out of skin Prior to Admission medications Medication Sig Last Dose Discont. Cholestyramine 4 GM Oral Packet (Questran) Take 1 Packet by mouth in the morning and 1 Packet before bedtime. mixed with liquid.. Past Week Zonisamide 50 MG Oral Capsule (Zonegran) TAKE 1 CAPSULE IN MORNING AND 2 CAPSULES AT NIGHT 01/19/2024 Vancomycin HCl 125 MG Oral Capsule (Vancocin) Take 1 Capsule by mouth every 6 hours for 10 days. 01/18/2024 LORazepam 0.5 MG Oral Tablet (Ativan) Past Week Caplyta 42 MG Oral Capsule (Lumateperone Tosylate) Take 1 Capsule by mouth at bedtime. 01/18/2024 Auvelity 45-105 MG Oral Tablet Extended Release (Dextromethorphan-buPROPion ER) Take 1 Tablet by mouth in the morning and 1 Tablet before bedtime. 01/19/2024 Levothyroxine Sodium 50 MCG Oral Tablet (Levoxyl) Take 1 tablet by mouth daily first thing in the morning at least 30 minutes prior to breakfast or other meds. 01/19/2024 SUMAtriptan Succinate 6 MG/0.5ML Subcutaneous Solution Auto-injector (Imitrex) inject one syringe at onset of headache and may repeat in 2 hours if needed- max of two syringes per day Past Week Belsomra 5 MG Oral Tablet at bedtime. 01/18/2024 Vitamin D-3 25 MCG (1000 UT) Oral Capsule Take 1 Capsule by mouth in the morning. Past Week Dicyclomine HCl 10 MG Oral Capsule (Bentyl) 1 Capsule in the morning and 1 Capsule at noon and 1 Capsule in the evening and 1 Capsule before bedtime. Patient not taking: Reported on 01/10/2024 Not Taking oxyCODONE-Acetaminophen 5-325 MG Oral Tablet (Percocet) Take 1 Tablet by mouth every 6 hours as needed. Using 1/2 tab Over 30 Days Pantoprazole Sodium 40 MG Oral Tablet Delayed Release (Protonix) Take 1 Tablet by mouth in the morning. Patient not taking: Reported on 01/10/2024 Not Taking Sucralfate 1 GM/10ML Oral Suspension (Carafate) 4 times a day. Patient not taking: Reported on 01/10/2024 Not Taking Estradiol 0.05 MG/24HR Transdermal Patch Twice Weekly Apply one patch to trunk, abdomen or buttocks, change twice per week. Over 30 Days predniSONE 20 MG Oral Tablet (Deltasone) Take 2 Tablets by mouth in the morning for 5 days. Ventolin HFA 108 (90 Base) MCG/ACT Inhalation Aerosol Solution Inhale 2 Puffs by mouth every 4 hours as needed (wheezing, chest tightness or cough). Over 30 Days Meclizine HCl 25 MG Oral Tablet (Antivert) TAKE 1 TABLET BY MOUTH THREE TIMES DAILY IF NEEDED for dizziness (morning, noon, evening) Over 30 Days medroxyPROGESTERone Acetate 2.5 MG Oral Tablet (Provera) Take 1 Tablet by mouth daily. Over 30 Days Ajovy 225 MG/1.5ML Subcutaneous Solution Prefilled Syringe (Route4Memanezumab-vfrm) inject 4.5 milliliters subcutaneously every 3 months Over 30 Days Ibuprofen 200 MG Oral Capsule Take 2 Capsules by mouth every 6 hours as needed. Over 30 Days Ondansetron HCl 4 MG Oral Tablet Take by mouth 1 Tablet every 6 hours as needed for Nausea. Over 30Days Fluticasone Propionate 50 MCG/ACT Nasal Suspension (Flonase) Administer 2 Sprays into each nostril in the morning and 2 Sprays before bedtime. Over 30 Days Physical Exam: Mental Status Examination: alert and oriented. Airway Examination: normal oropharyngeal airway and neck mobility. Respiratory Examination: clear to auscultation. CV Examination: Regular rate and rythm, no murmurs. ASA Grade: II - A patient with mild systemic disease. After reviewing the risks and benefits, the patient was deemed in satisfactory condition to undergothe procedure. The anesthesia plan was to use sedation. Patient was explained in detail regarding risks, benefits, limitations and alternatives of the above endoscopic procedure. Risks of intravenous sedation used for procedure were also explained. Risks include, but not limited to perforation, bleeding, infection, respiratory distress, cardiac arrest and . Risk of acute pancreatitis and necrosis if ERCP is done. Patient is also aware about the possibility of missed lesion. Patient's questions were answered. The patient verbalized understandingthe information and agreed to undergo the procedure. Discussed with the patient that he/she is at an explicit higher risk for complications in comparison to other patients Franky Alcazar MD 01/19/2024 documented in this encounter Procedure Notes * Javon Garcia III, MD - 01/19/2024 1:00 PM EDTAssociated Order(s): UPPER GI ENDOSCOPY [facility] Patient Name: Rosey Hua Procedure Date: 01/19/2024 1:00 PM Date of : 1975 Admit Type: Outpatient Note Status: Finalized Date of : 1975 Admit Type: Outpatient Age: 48 Room: Advanced [facility] Gender: Female Note Status: Finalized Procedure: Upper GI endoscopy Indications: Abnormal MRI of the GI tract Providers: Franky Alcazar MD (Doctor), Clyde Doyle RN Referring MD: Anaya Pardo NP (Referring MD), Javon Garcia III, MD (Referring MD) Medicines: Propofol per Anesthesia Complications: No immediate complications. Procedure: Pre-Anesthesia Assessment: - Prior to the procedure, a History and Physical was performed, and patient medications, allergies and sensitivities were reviewed. The patient's tolerance of previous anesthesia was reviewed. - The risks and benefits of the procedure and the sedation options and risks were discussed with the patient. All questions were answered and informed consent was obtained. - Patient identification and proposed procedure were verified prior to the procedure by the physician and the nurse. The procedure was verified in the procedure room. - Pre-procedure physical examination revealed no contraindications to sedation. After obtaining informed consent, the endoscope was passed under direct vision. All instruments were visually inspected immediately before and after removal from the patient to ensure they are fully intact. Throughout the procedure, the patient's blood pressure, pulse, and oxygen saturations were monitored continuously. The upper GI endoscopy was accomplished without difficulty. The patient tolerated the procedure well. The GIF-[id number] Endoscope([id number]) was introduced through the mouth, and advanced to the second part of duodenum. Findings & Specimens: The examined esophagus was normal. A small hiatal hernia was present. The entire examined stomach was normal. The duodenal bulb and second portion of the duodenum were normal. Impression: - Normal esophagus. - Small hiatal hernia. - Normal stomach. - Normal duodenal bulb and second portion of the duodenum. - No specimens collected. Recommendation: - Perform an upper endoscopic ultrasound (UEUS) today. Franky Alcazar MD 01/19/2024 1:33:59 PM This report has been signed electronically. * Javon Garcia III, MD - 01/19/2024 12:59 PM EDTAssociated Order(s): UPPER ENDOSCOPIC U/S [facility] Patient Name: Rosey Hua Procedure Date: 01/19/2024 12:59 PM Date of : 1975 Admit Type: Outpatient Note Status: Finalized Date of : 1975 Admit Type: Outpatient Age: 48 Room: Advanced Endo Gender: Female Note Status: Finalized Procedure: Upper EUS Indications: Common bile duct dilation (acquired) seen on MRCP, Dilated pancreatic duct on MRCP Providers: Franky Alcazar MD (Doctor), Clyde Doyle RN Referring MD: Anaya Pardo NP (Referring MD), Javon Garcia III, MD (Referring MD) Medicines: Propofol per Anesthesia Complications: No immediate complications. Procedure: Pre-Anesthesia Assessment: - Prior to the procedure, a History and Physical was performed, and patient medications, allergies and sensitivities were reviewed. The patient's tolerance of previous anesthesia was reviewed. - The risks and benefits of the procedure and the sedation options and risks were discussed with the patient. All questions were answered and informed consent was obtained. - Patient identification and proposed procedure were verified prior to the procedure by the physician and the nurse. The procedure was verified in the procedure room. - Pre-procedure physical examination revealed no contraindications to sedation. After obtaining informed consent, the endoscope was passed under direct vision. All instruments were visually inspected immediately before and after removal from the patient to ensure they are fully intact. Throughout the procedure, the patient's blood pressure, pulse, and oxygen saturations were monitored continuously.The upper EUS was accomplished without difficulty. The patient tolerated the procedure well. The Endoscope was introduced through the mouth, and advanced to the second part of duodenum. Findings & Specimens: ENDOSONOGRAPHIC FINDING: : There was no sign of significant endosonographic abnormality in the ampulla. No masses were identified. There was no sign of significant endosonographic abnormality in the common bile duct. The maximum diameter of the duct was 4 mm. There was no sign of significant endosonographic abnormality in the gallbladder. There was no sign of significant endosonographic abnormality in the visualized portion of the liver. Homogeneous parenchyma was identified. There was no sign of significant endosonographic abnormality in the entire pancreas. The pancreatic duct measured up to 2 mm in diameter. Pancreas divisum was suspected. Impression: - There was no sign of significant pathology in the ampulla. - There was no sign of significant pathology in the common bile duct. - There was no sign of significant pathology in the gallbladder. - There was no evidence of significant pathology in the visualized portion of the liver. - There was no sign of significant pathology in the entire pancreas. - Pancreas divisum was suspected. - No specimens collected. Recommendation: - Discharge patient to home. - Return to referring physician. Franky Alcazar MD 01/19/2024 1:35:32 PM This report has been signed electronically. documented in this encounter Nursing Notes * Salima Ahuja RN - 01/19/2024 2:12 PM EDT Patient is alert, pain free, and tolerating po fluids prior to discharge. Patient has been visited by Dr. Alcazar. Patient has received and demonstrates understanding of discharge instructions. Patient ambulates to private auto accompanied by endo staff. * Salima Ahuja RN - 01/19/2024 1:39 PM EDT Patient transferred to post endo s/p EUS. Patient awake and responding appropriately Respirations are even and unlabored on room air. NSR in the 70s on the monitor. Abdomen soft and non distended. Vital signs stable. * Johny Doyle RN - 01/19/2024 1:33 PM EDT See anesthesia record for medication administered during procedure. Johny Doyle RN Pre cleaning of scope at the bedside started by underwriting technician. * Kinsey Borden RN - 01/19/2024 1:14 PM EDT Patient prepped and ready for procedure. Call brown in reach. * Kinsey Borden RN - 01/19/2024 1:03 PM EDT The following pt discharge instructions reviewed with pt prior to prodedure: No driving today. No alcohol today. No signing of legal documents. Rest as much as possible today and can return to normal activities tomorrow. No operating any heavy equipment today. Diet as tolerated. Pt verbalized understanding. Patient does not meet criteria for testing.post menopausal * Kinsey Borden RN - 01/19/2024 12:50 PM EDT The following pt discharge instructions reviewed with pt prior to prodedure: No driving today. No alcohol today. No signing of legal documents. Rest as much as possible today and can return to normal activities tomorrow. No operating any heavy equipment today. Diet as tolerated. Pt verbalized understanding. documented in this encounter Plan of Treatment Upcoming Encounters Date Type Department Care Team (Late st Contact Info) Description 01/21/2024 2:00 PM EDT Office Visit Gynecology/Obstetr [facility] [address] [place] [id number] Backer, LEEANN Bashir [address] [place] [address] 02/10/2024 12:30 PM EDT Hospital Encounter [facility] [place] Endoscopy Suite, [facility] [address], [address] [place] [address] Yury Lieberman MD [address] [place] [phone] 02/10/2024 12:30 PM EDT - 02/10/2024 1:15 PM EDT Surgery [facility] [place] Endoscopy Suite, [address], [address] [place], [place] [id number] Yury Lieberman MD [address] [place] [phone] COLONOSCOPY FLEXIBLE PROXIMAL DIAGNOSTIC 05/25/2024 12:30 PM EST Telemedicine Gastroenterology, [facility] [address] [place] [address] Anaya Pardo CRNP [address] [place] [address] 06/16/2024 11:20 AM EST Office Visit Neurology [facility] [address] [facility] [place] [address] Germán Martines, [address] [facility] [place] [address] 07/03/2024 2:20 PM EST Office Visit Otolaryngology, [place] [address] [place] [address] Ravin Kam PA-C [address] [place] [phone] 07/03/2024 2:30 PM EST [place] [facility] [address] [place] [address] [facility] Audiology [facility] [address] [facility] [place] [address] Scheduled Orders Name Type Priority Associated Diagnoses Orde r Schedule URINE SCREEN, POINT OF CARE (ENTER/EDIT) Point of Care Testing STAT Perform Now for 1 Occurrences starting 01/19/2024 until 01/19/2024 Scheduled Procedures Name Priority Associated Diagnoses Date/Ti [...] on patient's age to complete this topic Hepatitis C Screening Completed 08/13/2021 , 08/13/2021, 08/13/2021 RETIRED - COLONOSCOPY-EVERY 5 YRS AGES 18-100 Discontinued 12/12/2021, 12/12/2021 HPV (Gardasil) Vaccine Aged Out No lo nger eligible based on patient's age to complete this topic MENINGOCOCCAL (MENACTRA/MENVEO) Aged Out No longer eligible based on patient's age to complete this topic documented as of this encounter Medical Devices Not on filedocumented as of this encounter Procedures Procedure Name Priority Date/Time Associated Diagnosis Comments US ENDOSCOPIC Routine 01/19/2024 1:37 PM EDT UPPER GI ENDOSCOPY 01/19/2024 1: 00 PM EDT UPPER ENDOSCOPIC U/S 01/19/2024 12:59 PM EDT documented in this encounter Results * US ENDOSCOPIC (01/19/2024 1:37 PM EDT) Narrative Scheduling, Silent - 01/19/2024 1:37 PM EDT This is an imaging study not interpreted or resulted by a [facility] or [facility] contracted radiologist. Franky Alcazar MD RAD ULTRASOUND * UPPER GI ENDOSCOPY (01/19/2024 1:00 PM EDT) 01/19/2024 1:00 PM EDT Narrative Procedure Note Javon Garcia III, MD - 01/19/2024 1:00 PM EDT [facility] Patient Name: Rosey Hua Procedure Date: 01/19/2024 1:00 PM Date of : 1975 Admit Type: Outpatient Note Status:Finalized Date of : 1975 Admit Type: Outpatient Age: 48 Room: Advanced [facility] Gender: Female Note Status: Finalized Procedure: Upper GI endoscopy Indications: Abnormal MRI of the GI tract Providers: Franky Alcazar MD (Doctor), Clyde Doyle RN Referring MD: Anaya Pardo NP (Referring MD), Javon Garcia III, MD (Referring MD) Medicines: Propofol per Anesthesia Complications: No immediate complications. Procedure: Pre-Anesthesia Assessment: - Prior to the procedure, a History and Physicalwas performed, and patient medications, allergies and sensitivities werereviewed. The patient's tolerance of previous anesthesia was reviewed. - The risks and benefits of the procedure and thesedation options and risks were discussed with the patient. All questions wereanswered and informed consent was obtained. - Patient identification and proposed procedurewere verified prior to the procedure by the physician and the nurse. The procedure wasverified in the procedure room. - Pre-procedure physical examination revealed nocontraindications to sedation. After obtaining informed consent, the endoscope waspassed under direct vision. All instruments were visually inspected immediatelybefore and after removal from the patient to ensure they are fully intact. Throughout the procedure, the patient's bloodpressure, pulse, and oxygen saturations were monitored continuously. The upper GI endoscopywas accomplished without difficulty. The patient tolerated the procedurewell. The GIF-[id number] Endoscope([id number]) was introduced through themouth, and advanced to the second part of duodenum. Findings & Specimens: The examined esophagus was normal. A small hiatal hernia was present. The entire examined stomach was normal. The duodenal bulb and second portion of the duodenum were normal. Impression: - Normal esophagus. - Small hiatal hernia. - Normal stomach. - Normal duodenal bulb and second portion of theduodenum. - No specimens collected. Recommendation: - Perform an upper endoscopic ultrasound (UEUS)today. Franky Alcazar MD 01/19/2024 1:33:59 PM This report has been signed electronically. Javon Garcia III, MD GASTRO UPPER * UPPER ENDOSCOPIC U/S (01/19/2024 12:59 PM EDT) 01/19/2024 12:5 9 PM EDT Narrative Procedure Note Javon Garcia III, MD - 01/19/2024 12:59 PM EDT [facility] Patient Name: Rosey Hua Procedure Date: 01/19/2024 12:59 PM Date of : 1975 Admit Type: Outpatient Note Status:Finalized Date of : 1975 Admit Type: Outpatient Age: 48 Room: Advanced Endo Gender: Female Note Status: Finalized Procedure: Upper EUS Indications: Common bile duct dilation (acquired) seen on MRCP,Dilated pancreatic duct on MRCP Providers: Franky Alcazar MD (Doctor), Clyde Doyle RN Referring MD: Anaya Pardo NP (Referring MD), Javon [place]sorio MD (Referring MD) Medicines: Propofol per Anesthesia Complications: No immediate complications. Procedure: Pre-Anesthesia Assessment: - Prior to the procedure, a History and Physicalwas performed, and patient medications, allergies and sensitivities werereviewed. The patient's tolerance of previous anesthesia was reviewed. - The risks and benefits of the procedure and thesedation options and risks were discussed with the patient. All questions wereanswered and informed consent was obtained. - Patient identification and proposed procedurewere verified prior to the procedure by the physician and the nurse. The procedure wasverified in the procedure room. - Pre-procedure physical examination revealed nocontraindications to sedation. After obtaining informed consent, the endoscope waspassed under direct vision. All instruments were visually inspected immediatelybefore and after removal from the patient to ensure they are fully intact. Throughout the procedure, the patient's bloodpressure, pulse, and oxygen saturations were monitored continuously.The upper EUS wasaccomplished without difficulty. The patient tolerated the procedure well. The Endoscopewas introduced through the mouth, and advanced to the second part of duodenum. Findings & Specimens: ENDOSONOGRAPHIC FINDING: : There was no sign of significant endosonographic abnormality in theampulla. No masses were identified. There was no sign of significant endosonographic abnormality in thecommon bile duct. The maximum diameter of the duct was 4 mm. There was no sign of significant endosonographic abnormality in thegallbladder. There was no sign of significant endosonographic abnormality in thevisualized portion of the liver. Homogeneous parenchyma was identified. There was no sign of significant endosonographic abnormality in theentire pancreas. The pancreatic duct measured up to 2 mm in diameter. Pancreas divisum was suspected. Impression: - There was no sign of significant pathology in theampulla. - There was no sign of significant pathology in thecommon bile duct. - There was no sign of significant pathology in thegallbladder. - There was no evidence of significant pathology inthe visualized portion of the liver. - There was no sign of significant pathology in theentire pancreas. - Pancreas divisum was suspected. - No specimens collected. Recommendation: - Discharge patient to home. - Return to referring physician. Franky Alcazar MD 01/19/2024 1:35:32 PM This report has been signed electronically. Javon Garcia III, MD GASTRO UPPER documented in this encounter Administered Medications Inactive Administered Medications - up to 3 most recent administrations Medication Order MAR Action Action Date Dose Rate Site isolyte-S pH 7.4 infusion Intravenous, at 100 mL/hr, Plasma-LYTE 148, isolyte-S, and isolyte-S pH 7.4 are considered equivalent - including for MAR barcode scanning., CONTINUOUS, Starting on Wed01/19/24 at 1330, Until Wed01/19/24 at 1813, Pre-Op Continue from Pre-Op 01/19/2024 1:18 PM EDT 100 mL/hr New Bag 01/19/2024 1:13 PM EDT 100 mL/hr documented in this encounter Active and Recently Administered Medications Times are shown in EDT. Continuous Medication Order 01/17/2024 01/18/2024 01/19/2024 isolyte-S pH 7.4 infusion Intravenous, at 100 mL/hr, Plasma-LYTE 148, isolyte-S, and isolyte-S pH 7.4 are considered equivalent - including for MAR barcode scanning., CONTINUOUS, Starting on Wed01/19/24 at 1330, Until Wed01/19/24 at 1813, Pre-Op 1313 (New Bag - Prov ider: Kinsey Borden RN)1318 (Continue from Pre-Op - Provider: Valeriano Perkins CRNA)1340 (Anes Intra-Op Fluid - Provider: Valeriano Perkins CRNA) documented in this encounter Advance Directives Healthcare Agents on File Name Relationship Healthcare Agent Relationshi p Communication Samuel Krystle Significant Other Health Care Re presentative (appointed verbally by patient or by statute hierarchy) Care Teams Yeast Tender Relationship Specialty Start Date End Date Jose III, Javon Stahl MD [address] [place] [address] PCP - General Family Medicine 09/20/18 documented as of this encounter
--- OUTSIDE RECORDS SUMMARY | 2024-02-04 03:52 | External Medical Summary | Summary of Care ---
Author Name Unknown Organization [facility] Address [address] [place] [address] Phone [phone] Care Team Providers Care Early Childhood Education Instructor Name Role Phone Jose YAN MD, Javon Stahl Primary Care Provider [phone] Reason for Visit * Reason Onset Date Comments Appointment 01/06/2024 Ret gastro Encounter Details Date Type Department Care Team (Late st Contact Info) Description 01/06/2024 Telephone Gastroenterology, [facility] [address] [place] [address] Anaya Pardo CRNP [address] [place] [address] Appointment (Ret gastro) Allergies Active Allergy Reactions Criticality Noted Date Comments Metoclopramide Hcl 06/01/2018 Pt felt like she crawling out of skin documented as of this encounter (statuses as of 01/06/2024) Medications Medication Sig Dispensed Refills Start Date [...] with liquid.. 60 Packet 2 01/05/2024 Active Hospital, Clinic, or Other Facility Administered [...] as of this encounter (statuses as of 01/06/2024) Active Problems Problem Noted Date Diagnosed Date [...] as of this encounter (statuses as of 01/06/2024) Resolved Problems Problem Noted Date Diagnosed Date Resolved Date COVID-19 virus infection 04/21/202301/2024 Alzheimer's disease, unspecified (CODE) 03/24/2023 09/06/2023 Food insecurity 04/28/2021 06/04/2022 Overview: Per [facility] Protocol Bipolar 2 disorder 06/01/2018 Intractable migraine with au ra without status migrainosus 06/01/2018 11/27/2023 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 09/16/2015 11/27/2023 documented as of this encounter (statuses as of 01/06/2024) Immunizations Name Administration Dates Next Due COVID-19 [...] encounter Miscellaneous Notes * Telephone Encounter - Adriana Ackerman OSA - 01/06/2024 9:00 AM EDT Lm for pt to return call to schedule below appt via video please schedule when pt returns call. Return in about 3 months (around 04/06/2024). documented in this encounter Plan of Treatment Upcoming Encounters Date Type Department Care Team (Latest Contact Info) Description 01/19/2024 9:45 AM EDT Hospital Encounter ENDO [facility], Endoscopy Room [facility] [address] [place] [address] Franky Alcazar MD [address] [place] [address] 01/19/2024 9:45 AM EDT - 01/19/2024 10:30 AM EDT Surgery ENDO [facility], Endoscopy Room [facility] [address] [place] [address] Franky Alcazar MD [address] [place] [address] ESOPHAGOGASTRODUODENOSCOPY (EGD), FLEXIBLE, TRANSORAL, ENDOSCOPIC ULTRASOUND 01/21/2024 2:00 PM EDT Office Visit Gynecology/Obst etrics [place] [address] [place] [address] BackerRowan CRNP [address] [place] [address] 06/01/2024 2:30 PM EST Hospital Encounter ENDO [facility], Endoscopy Room [facility] [address] [place] [address] Earle Camarillo MD [address] [place], [place] [address] 06/01/2024 2:30 PM EST - 06/01/2024 3:00 PM EST Surgery ENDO [facility], Endoscopy Room [facility] [address] [place], [place] [phone] Earle Camarillo MD [address] [place] [address] COLONOSCOPY FLEXIBLE PROXIMAL DIAGNOSTIC 06/16/2024 11:20 AM EST Office Visit Neurology [facility] [address] [place] [address] Germán Martines, DO [address] [place] [address] 07/03/2024 2:20 PM EST Office Visit [facility] [place] [address] [place] [address] Ravin Kam PA-C [address] [place] [address] 07/03/2024 2:30 PM EST Office Visit [facility] [place] [address] [place] [address] [facility], Audiology [facility] [address] [place] [address] Scheduled Procedures Name Priority Associated Diagnoses Date/Ti me ESOPHAGOGASTRODUODENOSCOPY ( EGD), FLEXIBLE, TRANSORAL, ENDOSCOPIC ULTRASOUND Dilated cbd, acquired 01/19/2024 9:45 AM EDT COLONOSCOPY FLEXIBLE PROXIMA L DIAGNOSTIC Recall History of colon polyps 06/01/2024 2:30 PM EST Health Maintenance Due Date Last Done Comments HIV Screening 1989 Hepatitis B Vaccine (1 of 3 - 19+ 3-dose series) 1993 Cologuard 2019 Fecal Occult Blood Test 2019 Sigmoidoscopy 2019 COVID-19 Vaccine (2022- season) 2023 02/28/2022, 04/24/2021, 08/07/2020, Additional history [...] patient or by statute hierarchy) Care Teams Early Childhood Education Instructor Relationship Specialty Start Date End Date Javon Garcia III, MD [address] [place] [address] PCP - General Family Medicine 09/20/18 documented as of this encounter
--- OUTSIDE RECORDS SUMMARY | 2024-02-04 03:52 | External Medical Summary | Summary of Care ---
Author Name Unknown Organization [facility] Address [address] [place] [address] Phone [phone] Care Team Providers Care Hot Die Picker Name Role Phone Jose YAN MD, Javon Stahl Primary Care Provider [phone] Reason for Visit * Reason Onset Date Comments Colonoscopy 01/05/2024 Encounter Details Date Type Department Care Team (Late st Contact Info) Description 01/05/2024 Telephone Gastroenterology, [facility] [address] [place] [address] Anaya Pardo CRNP [address] [place] [address] Colonoscopy Allergies Active Allergy Reactions Criticality Noted Date [...] 09/06/2023 Food insecurity 04/28/2021 06/04/2022 Overview: Per [facility] Protocol Bipolar 2 disorder 06/01/2018 [...] encounter Miscellaneous Notes * Telephone Encounter - Rosey Corbin OSA - 01/06/2024 11:37 AM EDT Called patient to move up appt. Lmm for patient to call office back. * Telephone Encounter - Anaya Pardo CRNP - 01/05/2024 10:48 AM EDT Can we see if we can move up or place pt on cancellation list for sooner colonoscopy? She is currently scheduled for 06/01/24 but having persistent diarrhea symptoms despite treatment for CdiLEEANN Sanchez documented in this encounter Plan of Treatment Upcoming Encounters Date Type Department Care Team (Latest Contact Info) Description 01/19/2024 9:45 AM EDT Hospital Encounter ENDO [facility], Endoscopy Room [facility] [address] [place] [address] Franky Alcazar MD [address] [place] [address] 01/19/2024 9:45 AM EDT - 01/19/2024 10:30 AM EDT Surgery ENDO [facility], Endoscopy Room [facility] [address] [place] [address] Franky Alcazar MD [address] [place] [address] ESOPHAGOGASTRODUODENOSCOPY (EGD), FLEXIBLE, TRANSORAL, ENDOSCOPIC ULTRASOUND 01/21/2024 2:00 PM EDT Office Visit Gynecology/Obst etrics [facility] [address] [place] [address] Rowan Narvaez CRNP [address] [place] [address] 06/01/2024 2:30 PM EST Hospital Encounter ENDO [facility], Endoscopy Room [facility] [address] [place] [phone] Earle Camarillo MD [address] [place] [address] 06/01/2024 2:30 PM EST - 06/01/2024 3:00 PM EST Surgery ENDO [facility], Endoscopy Room [facility] [address] [place] [phone] Earle Camarillo MD [address] [place], [place] [address] COLONOSCOPY FLEXIBLE PROXIMAL DIAGNOSTIC 06/16/2024 11:20 AM EST Office Visit Neurology [facility] [address] [facility] [place], [place] [address] Germán Martines, DO [address] [place] [address] 07/03/2024 2:20 PM EST Office Visit Otolaryngology, [place] [address] [place] [address] Ravin Kam PA-C [address] [place] [address] 07/03/2024 2:30 PM EST Office Visit Otolaryngology, [place] [address] [place] [address] [place], Audiology [facility] [address] [place] [address] Scheduled Procedures Name Priority Associated Diagnoses Date/Ti [...] patient or by statute hierarchy) Care Teams Hot Die Picker Relationship Specialty Start Date End Date Javon Garcia III, MD [address] [facility] [place] [address] PCP - General Family Medicine 09/20/18 documented as of this encounter
--- OUTSIDE RECORDS SUMMARY | 2024-02-04 03:52 | External Medical Summary | Summary of Care ---
Author Name Unknown Organization [facility] Address [address] [place] [address] Phone [phone] Care Team Providers Care Tug Boat Captain Name Role Phone Jose YAN MD, Javon Stahl Primary Care Provider [phone] Reason for Visit * Reason Comments Follow Up * Evaluate & Treat - Unlimited Visits (Within 10 days (routine)) - Authorized Specialty Diagnoses / Procedures Referred By Contac t Referred To Contact Gastroenterology Diagnoses Abdominal pain, generalized Diarrhea, unspecified type Hospital discharge follow-up Dilated cbd, acquired Pancreatic duct dilated Dayanara Green MD [address] [place] [address] Referral ID Status Reason Start Date Expiration Date Visits Requested Visits Authorized [id number] Authorized Specialty Services Required 11/18/2023 999 [id number] Encounter Details Date Type Department Care Team (Late st Contact Info) Description 01/05/2024 10:30 AM EDT Telemedicine Gastroenterology, [facility] [address] [place] [address] Anaya Pardo CRNP [address] [place] [address] Clostridium difficile diarrhea* Allergies Active Allergy Reactions Criticality Noted Date Comments Metoclopramide Hcl 06/01/2018 Pt felt like she crawling out of skin documented as of this encounter (statuses as of 01/05/2024) Medications Medication Sig Dispensed Refills Start Date [...] as of this encounter (statuses as of 01/05/2024) Active Problems Problem Noted Date Diagnosed Date [...] as of this encounter (statuses as of 01/05/2024) Resolved Problems Problem Noted Date Diagnosed Date Resolved Date COVID-19 virus infection 04/21/202301/2024 Alzheimer's disease, unspecified (CODE) 03/24/2023 09/06/2023 Food insecurity 04/28/2021 06/04/2022 Overview: Per [facility] Protocol Bipolar 2 disorder 06/01/2018 Intractable migraine with au ra without status migrainosus 06/01/2018 11/27/2023 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 09/16/2015 11/27/2023 documented as of this encounter (statuses as of 01/05/2024) Immunizations Name Administration Dates Next Due COVID-19 [...] on file documented as of this encounter Progress Notes * Anaya Pardo CRNP - 01/05/2024 10:36 AM EDT DATE OF SERVICE: 01/05/2024 REFERRING PHYSICIAN: Self Patient location: HOME. I was in a hospital or clinic location. After connecting through [employer],patient was verified with two unique identifiers. Patient (or authorized legal b2b outside sales representative) was then informed that this was a Telemedicine visit and being conducted confidentially over secure lines. Methods to assure confidentiality were taken. Patient acknowledged consent and understanding of pr ivacy and security of the Telemedicine visit. The patient agreed to participate. CC: Diarrhea Telemedicine Visit 01/05/2024: Pt seen for ongoing diarrhea. Hx of Cdiff dx'd in October ([facility] lab) precipitated by Augmentin use for ear infection. Since then she's had Vancomycin treatment and even seenby [facility], Infectious Disease for ongoing diarrhea symptoms despite having negative Cdiff stool samples on 11/25 and 12/14/23. Stool samples submitted while she is still on vancomycin, [facility] She is currently on vancomycin pulse taper therapy at dose of 125 mg daily. Stools arestill diarrhea like. No rectal bleeding. No abdominal pain, cramping, nausea or vomiting. Colonoscopy 2021: - One 8 mm polyp at 20 cm proximal to the anus, removed with a hot snare. Resected and retrieved. -> adenomatous colon polyp, recall in 2026 - The examination was otherwise normal on direct and retroflexion views. CT abd/pelvis 12/02/2023 ([facility]): 1. No acute findings in the abdomen or pelvis. 2. Gallbladder sludge but no evidence of cholecystitis or calcified stone. No common bile duct dilatation. No visible choledocholithiasis. 3. Changes in the pancreas suggesting background of chronic pancreatitis. No CT evidence of acute pancreatitis. MRCP 12/03/2023 ([facility]): 1. Motion degraded exam. 2. Distended gallbladder with layering sludge versus cholelithiasis. There is no gallbladder wall thickening or pericholecystic fluid to suggest acute cholecystitis. Findings could be correlated withnuclear medicine hepatobiliary scan if of further clinical concern. 3. Mild intrahepatic and extrahepatic biliary ductal dilation without choledocholithiasis identified. There is mild tapered narrowing of the distal common bile duct just proximal to the ampulla. 4. Pancreatic ductal dilation with numerous sidebranches IPMN's measuring up to 11 mm. Possible pancreatic ductal stricture within the pancreatic head. No obstructing mass identified. Labs and CT abd studies from [facility] system reviewed in electronic chart. 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 Vertiginous syndromes and other disorders of vestibular system 09/16/2015 Family History Problem Relation Name Age of Onset Migraines Mother V whetstine Allergies Mother V whetstine Allergic rhinitis Gastro-intestinal disorder Mother V whetstine Arthritis Father J [facility] knee replacement Heart disease Father J [facility] bypass Hypertension Father J [facility] Allergies Father J [facility] Chronic rhinitis Alcohol and Other Disorders Associated Father J [facility] Musculo-skeletal Disorder Father J [facility] Knee replacement Bipolar Disorder Sister Migraines Grandmother (Maternal) M black Hypertension Grandmother (Maternal) M black Diabetes Grandfather (Maternal) F black type 1 Arthritis Grandmother (Paternal) C Stich Valvular heart disease Grandmother (Paternal) C Stich Alcohol and Other Disorders Associated Grandfather (Paternal) J Stich Stroke Grandfather (Paternal) J Stich Allergies Son Jaiden Tree nut allergy Ovarian cancer Aunt (Maternal) Past Surgical History: Procedure Laterality Date BREAST LESION,OTHER,EXCISION Right 2010 Benign DELIVERY 02/23/2007 COLONOSCOPY, DIAGNOSTIC (RECTUM) 12/12/2021 benign adenomatous polyp, repeat 5 yrs / COLONOSCOPY FLEXIBLE PROXIMAL DIAGNOSTIC performed by Mayco Osborne MD at ENDOSCOPY [facility] DENTAL SURGERY PROCEDURE NEC Social History Tobacco Use Smoking status: Former Current packs/day: 0.00 Average packs/day: 1 pack/day for 20.1 years (20.1 ttl pk-yrs) Types: Cigarettes Start date: 08/19/1998 Quit date: 09/16/2018 Years since quittin.3 Smokeless tobacco: Never Tobacco comments: No passive smoke exposures Vaping Use Vaping status: Never Used Substance Use Topics Alcohol use: Not Currently Drug use: Not Currently Types: Marijuana Review of patient's allergies indicates: Allergen Reactions Reglan [Metoclopramide Hcl] Pt felt like she crawling out of skin Current Outpatient Medications Medication Sig Dispense Refill Cholestyramine 4 GM Oral Packet (Questran) Take 1 Packet by mouth in the morning and 1 Packet before bedtime. mixed with liquid.. 60 Packet 2 Fluticasone Propionate 50 MCG/ACT Nasal Suspension (Flonase) Administer 2 Sprays into each nostril in the morning and 2 Sprays before bedtime. 18.2 mL 6 Ondansetron HCl 4 MG Oral Tablet Take by mouth 1 Tablet every 6 hours as needed for Nausea. 30 Tablet 2 Vitamin D-3 25 MCG (1000 UT) Oral Capsule Take 1 Capsule by mouth in the morning. Ibuprofen 200 MG Oral Capsule Take 2 Capsules by mouth every 6 hours as needed. Ajovy 225 MG/1.5ML Subcutaneous Solution Prefilled Syringe (Fremanezumab-vfrm) inject 4.5 milliliters subcutaneously every 3 months 4.5 mL 3 Belsomra 5 MG Oral Tablet at bedtime. medroxyPROGESTERone Acetate 2.5 MG Oral Tablet (Provera) Take 1 Tablet by mouth daily. 90 Tablet 3 SUMAtriptan Succinate 6 MG/0.5ML Subcutaneous Solution Auto-injector (Imitrex) inject one syringe at onset of headache and may repeat in 2 hours if needed- max of two syringes per day 6 mL 3 Meclizine HCl 25 MG Oral Tablet (Antivert) TAKE 1 TABLET BY MOUTH THREE TIMES DAILY IF NEEDED for dizziness (morning, noon, evening) 10 Tablet 1 Levothyroxine Sodium 50 MCG Oral Tablet (Levoxyl) Take 1 tablet by mouth daily first thing in the morning at least 30 minutes prior to breakfast or other meds. 90 Tablet 2 Auvelity 45-105 MG Oral Tablet Extended Release (Dextromethorphan-buPROPion ER) Take 1 Tablet by mouth in the morning and 1 Tablet before bedtime. Caplyta 42 MG Oral Capsule (Lumateperone Tosylate) Take 1 Capsule by mouth at bedtime. Ventolin HFA 108 (90 Base) MCG/ACT Inhalation Aerosol Solution Inhale 2 Puffs by mouth every 4 hours as needed (wheezing, chest tightness or cough). 18 g 0 Estradiol 0.05 MG/24HR Transdermal Patch Twice Weekly Apply one patch to trunk, abdomen or buttocks, change twice per week. 8 Patch 3 Dicyclomine HCl 10 MG Oral Capsule (Bentyl) 1 Capsule in the morning and 1 Capsule at noon and 1 Capsule in the evening and 1 Capsule before bedtime. LORazepam 0.5 MG Oral Tablet (Ativan) Sucralfate 1 GM/10ML Oral Suspension (Carafate) 4 times a day. Pantoprazole Sodium 40 MG Oral Tablet Delayed Release (Protonix) Take 1 Tablet by mouth in the morning. oxyCODONE-Acetaminophen 5-325 MG Oral Tablet (Percocet) Take 1 Tablet by mouth every 6 hours as needed. Using 1/2 tab Zonisamide 50 MG Oral Capsule (Zonegran) TAKE 1 CAPSULE IN MORNING AND 2 CAPSULES AT NIGHT 90 Capsule 5 Current Facility-Administered Medications Medication Dose Route Frequency Provider Last Rate Last Admin Albuterol Sulfate (Proventil) (2.5 MG/3ML) 0.083% inhalation solution 2.5 mg 2.5 mg Nebulizer PRN Javon Garcia III, MD 2.5 mg at 10/07/23 0951 Albuterol Sulfate (Proventil) (5 MG/ML) 0.5% *conc* inhalation solution 2.5 mg 2.5 mg Nebulizer Javon Cesar III, MD REVIEW OF SYSTEMS: All other findings negative except as noted in HPI. EXAM: GENERAL: Appears stated age, well developed, well nourished in no acute distress. SKIN: No apparent rashes, jaundice, ecchymosis, oral lesions. HEENT: Neck supple. Normocephalic, sclera non-icteric LUNGS: No respiratory distress or apparent accessory muscles used. Normal chest excursion. No audible wheezing NEURO: No lateralizing findings. Cranial nerves IV, V, , VII, XI and XII in tact. Motor grossly normal. PSYCHOSOCIAL: Appropriate affect, normal memory recall ASSESSMENT AND PLAN: Rosey Hua is a 48 year old female w ongoing diarrhea symptoms. Hx of Cdiff currently on pulse taper therapy. Seen by [facility] and Infectious Disease as well. Repeated stool samples as noted above negative for Cdiff though submitted while on Vancomcyin - Complete Vancomycin pulse taper therapy per ID's directions - Add Questran 4g bid - Florastor probiotics - Try to move up colonoscopy from 06/01/24 - Keep EGD/EUS appt on 01/19/24 for eval of biliary ductal dilation & distal CBD narrowing - ED for emergencies - Please call with any questions or concerns I spent a total of 45 minutes on the date of service in review of patient's record, and previouslyobtained information in person and appropriate medical visit, discussion and education of plan, with patient and/or caregiver, placing orders for tests/referral/procedures as medically necessary and documentation of pertinent clinical information in patient's medical records for their visit today. RETURN TO CLINIC: LEEANN Rizo 01/05/2024 11:48 AM R: 01/05/2024 documented in this encounter Plan of Treatment Upcoming Encounters Date Type Department Care Team (Latest Contact Info) Description 01/19/2024 9:45 AM EDT Hospital Encounter ENDO [facility], Endoscopy Room [facility] [address] [place] [phone] Franky Alcazar MD [address] [place] [address] 01/19/2024 9:45 AM EDT - 01/19/2024 10:30 AM EDT Surgery ENDO [facility], Endoscopy Room [facility] [address] [place], [place] [address] Franky Alcazar MD [address] [place] [address] ESOPHAGOGASTRODUODENOSCOPY (EGD), FLEXIBLE, TRANSORAL, ENDOSCOPIC ULTRASOUND 01/21/2024 2:00 PM EDT Office Visit Gynecology/Obst etrics [facility] [address] [place] [address] Rowan Narvaez CRNP [address] [place] [address] 06/01/2024 2:30 PM EST Hospital Encounter ENDO [facility], Endoscopy Room [facility] [address] [place], [place] [phone] Earle Camarillo MD [address] [place], [place] [address] 06/01/2024 2:30 PM EST - 06/01/2024 3:00 PM EST Surgery ENDO [facility], Endoscopy Room [facility] [address] [place] [address] Earle Camarillo MD [address] [place] [address] COLONOSCOPY FLEXIBLE PROXIMAL DIAGNOSTIC 06/16/2024 11:20 AM EST [facility] [address] [place], [place] [address] Germán Martines, [address] [place], [place] [address] 07/03/2024 2:20 PM EST [facility] [place] [address] [place] [address] Ravin Kam PA-C [address] [place] [address] 07/03/2024 2:30 PM EST Office Visit Otolaryngology, [place] [address] [place] [address] [facility] Audiology [facility] [address] [facility] [place] [address] Scheduled Procedures Name Priority Associated Diagnoses Date/Ti [...] as of this encounter Visit Diagnoses Diagnosis Clostridium difficile diarrhea- Primary Intestinal infection due to clostridium difficile Dilated cbd, acquired Other specified disorders of biliary tract History of colon polyps Personal history of colonic polyps documented in this encounter Advance Directives Healthcare Agents on File Name Relationship Healthcare Agent Relationshi p Communication Samuel Dalton Significant Other Health Care Re presentative (appointed verbally by patient or by statute hierarchy) Care Teams Tug Boat Captain Relationship Specialty Start Date End Date Javon Garcia III, MD [address] [facility] [place] [address] PCP - General Family Medicine 09/20/18 documented as of this encounter
--- OUTSIDE RECORDS SUMMARY | 2024-02-04 03:52 | External Medical Summary | Summary of Care ---
Author Name Unknown Organization [facility] Address [address] [place] [address] Phone [phone] Care Team Providers Care Aquaculture Farm Manager Name Role Phone Jose YAN MD, Javon Stahl Primary Care Provider [phone] Reason for Visit * Reason Onset Date Comments Colonoscopy 01/05/2024 Encounter Details Date Type Department Care Team (Late st Contact Info) Description 01/05/2024 Telephone Gastroenterology, [facility] [address] [place] [address] Anaya Pardo CRNP [address] [place] [address] Colonoscopy Allergies Active Allergy Reactions Criticality Noted [...] 09/06/2023 Food insecurity 04/28/2021 06/04/2022 Overview: Per [facility] Protocol Bipolar 2 disorder 06/01/2018 [...] encounter Miscellaneous Notes * Telephone Encounter - Anaya Pardo CRNP - 01/05/2024 10:48 AM EDT Can we see if we can move up or place pt on cancellation list for sooner colonoscopy? She is currently scheduled for 06/01/24 but having persistent diarrhea symptoms despite treatment for Cdiff LEEANN Rizo documented in this encounter Plan of Treatment Upcoming Encounters Date Type Department Care Team (Latest Contact Info) Description 01/19/2024 9:45 AM EDT Hospital Encounter ENDO [facility], Endoscopy Room [facility] [address] [place] [address] Franky Alcazar MD [address] [place] [address] 01/19/2024 9:45 AM EDT - 01/19/2024 10:30 AM EDT Surgery ENDO [facility], Endoscopy Room [facility] [address] [place] [address] Franky Alcazar MD [address] [place] [address] ESOPHAGOGASTRODUODENOSCOPY (EGD), FLEXIBLE, TRANSORAL, ENDOSCOPIC ULTRASOUND 01/21/2024 2:00 PM EDT Office Visit Gynecology/Obst etrics [facility] [address] [place] [address] Rowan Narvaez CRNP [address] [place] [address] 06/01/2024 2:30 PM EST Hospital Encounter ENDO [facility], Endoscopy Room [facility] [address] [place] [phone] Earle Camarillo MD [address] [place], [place] [address] 06/01/2024 2:30 PM EST - 06/01/2024 3:00 PM EST Surgery ENDO [facility], Endoscopy Room [facility] [address] [place], [place] [phone] Earle Camarillo MD [address] [place] [address] COLONOSCOPY FLEXIBLE PROXIMAL DIAGNOSTIC 06/16/2024 11:20 AM EST Office Visit Neurology [facility] [address] [place] [address] Germán Martines, DO [address] [place] [address] 07/03/2024 2:20 PM EST Office Visit [facility] [place] [address] [place] [address] Ravin Kam PA-C [address] [place] [address] 07/03/2024 2:30 PM EST Office Visit [facility] [place] [address] [place] [address] [facility] Audiology [facility] [address] [place] [address] Scheduled Procedures Name Priority Associated Diagnoses Date/Ti [...] patient or by statute hierarchy) Care Teams Aquaculture Farm Manager Relationship Specialty Start Date End Date Javon Garcia III, MD [address] [place] [address] PCP - General Family Medicine 09/20/18 documented as of this encounter
--- OUTSIDE RECORDS SUMMARY | 2024-02-04 03:52 | External Medical Summary | Summary of Care ---
Author Name Unknown Organization [facility] Address [address] [place] [address] Phone [phone] Care Team Providers Care Health Education Aide Name Role Phone Jose YAN MD, Javon Stahl Primary Care Provider [phone] Reason for Visit * Reason Comments Hearing Problem Encounter Details Date Type Department Care Team (Late st Contact Info) Description 12/28/2023 3:00 PM EDT Office Visit Otolaryngology, [place] [address] [place] [address] [facility] [address] Bilateral sensorineural hearing loss* Allergies Active Allergy Reactions Criticality Noted Date Comments Metoclopramide Hcl 06/01/2018 Pt felt like she crawling out of skin documented as of this encounter (statuses as of 12/28/2023) Medications Medication Sig Dispensed Refills Start Date [...] AT NIGHT 90 Capsule 5 12/10/2023 Active Hospital, Clinic, or Other Facility Administered [...] as of this encounter (statuses as of 12/28/2023) Active Problems Problem Noted Date Diagnosed Date [...] as of this encounter (statuses as of 12/28/2023) Resolved Problems Problem Noted Date Diagnosed Date Resolved Date COVID-19 virus infection 04/21/202301/2024 Alzheimer's disease, unspecified (CODE) 03/24/2023 09/06/2023 Food insecurity 04/28/2021 06/04/2022 Overview: Per [facility] Protocol Bipolar 2 disorder 06/01/2018 Intractable migraine with au ra without status migrainosus 06/01/2018 11/27/2023 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 Audiogram: Right Ear: mild, low to mid frequency, downsloping sensorineural hearing loss, speech discrimination is 100 percent at 55 dB. Left Ear: mild, low to mid frequency, downsloping sensorineural hearing loss, speech discriminationis 100 percent at 60 dB. Tympanograms- Right Type A, Left type A documented in this encounter Plan of Treatment Upcoming Encounters Date Type Department Care Team (Latest Contact Info) Description 4 10:30 AM EDT Telemedicine Gastroenterolog y, [facility] [address] [place] [address] Anaya Pardo CRNP [address] [place] [address] 4 9:45 AM EDT Hospital Encounter ENDO [facility], Endoscopy Room [facility] [address] [place] [phone] Franky Alcazar MD [address] [place] [address] 4 9:45 AM EDT - 4 10:30 AM EDT Surgery ENDO [facility], Endoscopy Room [facility] [address] [place] [phone] Franky Alcazar MD [address] [place] [address] ESOPHAGOGASTRODUODENOSCOPY (EGD), FLEXIBLE, TRANSORAL, ENDOSCOPIC ULTRASOUND 4 2:00 PM EDT Office Visit Gynecology/Obst etrics [facility] [address] [place], [place] [address] Rowan Narvaez CRNP [address] [place], [place] [address] 4 2:30 PM EST Hospital Encounter ENDO [facility], Endoscopy Room [facility] [address] [place] [phone] Earle Camarillo MD [address] [place] [address] 4 2:30 PM EST - 4 3:00 PM EST Surgery ENDO [facility], Endoscopy Room [facility] [address] [place] [phone] Earle Camarillo MD [address] [place] [address] COLONOSCOPY FLEXIBLE PROXIMAL DIAGNOSTIC 4 11:20 AM EST Office Visit Neurology [facility] [address] [place], [place] [address] Germán Martines, DO [address] [place], [place] [address] 5 2:20 PM EST Office Visit Otolaryngology, [place] [address] [place] [address] Ravin Kam PA-C [address] [place] [address] 5 2:30 PM EST Office Visit Otolaryngology, [place] [address] [place] [address] [facility], Audiology [facility] [address] [place] [address] Scheduled Procedures Name Priority Associated Diagnoses Date/Ti [...] Additional history exists Depression Monitoring 11/18/2024 11/19/2023 Diabetes Screening 03/25/2026 03/25/2023, 1 , 01/06/2023, Additional history exists Pap Smear 09/28/2026 09/29/2023, 02/12/2021, 01/06/2019 Colonoscopy 12/12/2026 12/12/2021, 12/12/2021 Colorectal Cancer Screening 12/12/2026 Lipid Panel 01/07/2028 01/06/2023, 07/15/2020 Cervical Cancer [...] as of this encounter Visit Diagnoses Diagnosis Bilateral sensorineural hearing loss- Primary Sensorineural hearing loss, bilateral Dilated cbd, acquired Other specified disorders of biliary tract History of colon polyps Personal history of colonic polyps documented in this encounter Advance Directives Healthcare Agents on File Name Relationship Healthcare Agent Relationshi p Communication Samuel Krystle Significant Other Health Care Re presentative (appointed verbally by patient or by statute hierarchy) Care Teams Health Education Aide Relationship Specialty Start Date End Date Javon Garcia III, MD [address] [place] [address] PCP - General Family Medicine 09/20/18 documented as of this encounter
--- OUTSIDE RECORDS SUMMARY | 2024-02-04 03:53 | External Medical Summary | Summary of Care ---
Author Name Unknown Organization [facility] Address [address] [place] [address] Phone [phone] Care Team Providers Care Furnace Mechanic Name Role Phone Jose YAN MD, Javon Stahl Primary Care Provider [phone] Reason for Referral * Evaluate & Treat - Unlimited Visits (Within 10 days (routine)) - Authorized Specialty Diagnoses / Procedures Referred By Tenisha lindsey Referred To Contact Physical Therapy / Physical Medicine And Rehab Diagnoses TMJ (dislocation of temporomandibular joint) Javon Garcia III, MD [address] [facility] [place] [address] Referral ID Status Reason Start Date Expiration Date Visits Requested Visits Authorized [id number] Authorized Specialty Services Required 12/14/2023 999 999 Question Answer Referral Priority Within 10 days (routine) Where should this appointment be scheduled? [facility] Reason for Visit * Reason Onset Date Comments Referral 12/14/2023 Encounter Details Date Type Department Care Team (Late st Contact Info) Description 12/14/2023 Telephone Family Practice [facility] [address] [place] [address] Javon Garcia III, MD 200 [facility] [place] [address] Referral Allergies Active Allergy Reactions Criticality Noted Date Comments Metoclopramide Hcl 06/01/2018 Pt felt like she crawling out of skin documented as of this encounter (statuses as of 12/15/2023) Medications Medication Sig Dispensed Refills Start Date [...] noon, evening) 10 Tablet 1 05/03/2023 Active Additional Information Patient not taking.Reported on 11/19/2023 Levothyroxine Sodium 50 MCG Oral Tablet (Levoxyl)Indication [...] tightness or cough). 18 g 08/30/2023 Active Additional Information Patient not taking.Reported on 11/19/2023 Estradiol 0.05 MG/24HR Transdermal Patch Twice WeeklyIndications:S [...] 0.5 MG Oral Tablet (Ativan) 11/04/2023 Active Metoprolol Tartrate 25 MG Oral Tablet (Lopressor) Take 1 Tablet by mouth in the morning. 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 (Y/N)?: yes If No, an appt needs to be scheduled before a referral will be placed (exception: proceed with referral request if referral request is for a yearly routine appointment with speciality) Patient Name: Rosey Hua Patient Primary care provider: Javon Garcia III, MD Does this need to be an insurance referral (Y/N)?: yes If Yes, does the insurance referral need to be placed into the [employer] system? Name of preferred specialist: [facility] Type of specialist: physical therapy Location of specialist: [facility] Phone #: [phone] Specialist's Fax #: [phone] Reason for visit: TMJ (dislocation of temporomandibular joint) [S03.00XA] Date of visit: 12/20/2023 documented in this encounter Plan of Treatment Upcoming Encounters Date Type Department Care Team (Latest Contact Info) Description 4 10:20 AM EDT Telemedicine General Internal Medicine [facility] [address] [facility] [place] [address] Dayanara Green MD [address] [facility] [place] [address] 4 12:40 PM EDT Office Visit Otolaryngology, [place] [address] [place] [address] Ravin Kam PA-C [address] [place] [address] 4 10:30 AM EDT Telemedicine Gastroenterolog y, [facility] [address] [place] [address] Anaya Pardo CRNP [address] [place] [address] 4 9:45 AM EDT Hospital Encounter ENDO [facility], Endoscopy Room [facility] [address] [place] [phone] Franky Alcazar MD [address] [place] [address] 4 9:45 AM EDT - 4 10:30 AM EDT Surgery [facility]O [facility], Endoscopy Room [facility] [address] [place] [phone] Franky Alczaar MD [address] [place] [address] ESOPHAGOGASTRODUODENOSCOPY (EGD), FLEXIBLE, TRANSORAL, ENDOSCOPIC ULTRASOUND 4 2:00 PM EDT Office Visit Gynecology/Obst etrics [facility] [address] [place] [address] Rowan Narvaez CRNP [address] [place] [address] 4 11:20 AM EST Office Visit Neurology [facility] [address] [place] [address] Germán Martines, DO [address] [place] [address] Scheduled Procedures Name Priority Associated Diagnoses Date/Ti me ESOPHAGOGASTRODUODENOSCOPY ( EGD), FLEXIBLE, TRANSORAL, ENDOSCOPIC ULTRASOUND Dilated cbd, acquired 01/19/2024 9:45 AM EDT COLONOSCOPY FLEXIBLE PROXIMA L DIAGNOSTIC Recall History of colon polyps Scheduled Referrals Name Type Priority Associated Diagnoses Orde r Schedule PHYSICAL THERAPY REFERRAL OP Referral Within 10 days (routine) TMJ (dislocation of temporomandibular joint) Ordered: 12/14/2023 Health Maintenance Due Date Last Done Comments HIV Screening 1989 Hepatitis B (1 of 3 - 19+ 3-dose series) 1993 Cologuard 2019 Fecal Occult Blood Test 2019 Sigmoidoscopy 2019 COVID-19 Vaccine (2022- season) 2023 02/28/2022, 04/24/2021, 08/07/2020, Additional history exists TSH 03/08/2024 03/08/2023, 12/19, 09/01/2022, Additional history exists Mammogram 04/05/2024 04/05/2023, 03/21, 04/02/2022, Additional history exists Depression Monitoring 11/18/2024 11/19/2023 Diabetes Screening 03/25/2026 03/25/2023, 1 , 01/06/2023, Additional history exists Pap Smear 09/28/2026 09/29/2023, 12/2021, 01/06/2019 Colonoscopy [...] 5 YRS AGES 18-100 Discontinued 12/12/2021, 12/12/2021 Influenza Vaccine (FLU shot) Completed 05/05/2023, 02/28/2022, 03/08/2021, Additional history exists GARDASIL-HPV IMMUNIZATION SERIES Aged Out No longer eligible based on patient's age to complete this topic MENINGOCOCCAL (MENACTRA/MENVEO) Aged Out No longer eligible based on patient's age to complete this topic documented as of this encounter Medical Devices Not on filedocumented as of this encounter Visit Diagnoses Diagnosis TMJ (dislocation of temporomandibular joint)- Primary Closed dislocation of jaw Dilated cbd, acquired Other specified disorders of biliary tract documented in this encounter Advance Directives Healthcare Agents on File Name Relationship Healthcare Agent Relationshi p Communication Samuel Dalton Significant Other Health Care Re presentative (appointed verbally by patient or by statute hierarchy) Care Teams Furnace Mechanic Relationship Specialty Start Date End Date Javon Garcia III, MD [address] [facility] [place] [address] PCP - General Family Medicine 09/20/18 documented as of this encounter
--- OUTSIDE RECORDS SUMMARY | 2024-02-04 03:53 | External Medical Summary | Summary of Care ---
Author Name Unknown Organization [facility] Address [address] [place] [address] Phone [phone] Care Team Providers Care Channel Opener Name Role Phone Jose YAN MD, Javon Stahl Primary Care Provider Reason for Visit * Reason Onset Date Comments Blood Pressure Check 12/27/2023 Encounter Details Date Type Department Care Team (Late st Contact Info) Description 12/27/2023 10:00 AM EDT Nurse Only Ancillary [facility] [place] [address] [place] [address] Nurse, Int Med [address] [place] [address] Blood Pressure Check Allergies Active Allergy Reactions Criticality Noted Date Comments Metoclopramide Hcl 06/01/2018 Pt felt like she crawling out of skin documented as of this encounter (statuses as of 12/27/2023) Medications Medication Sig Dispensed Refills Start Date [...] as of this encounter (statuses as of 12/27/2023) Active Problems Problem Noted Date Diagnosed Date [...] as of this encounter (statuses as of 12/27/2023) Resolved Problems Problem Noted Date Diagnosed Date Resolved Date COVID-19 virus infection 04/21/202301/2024 Alzheimer's disease, unspecified (CODE) 03/24/2023 09/06/2023 Food insecurity 04/28/2021 06/04/2022 Overview: Per [facility] Protocol Bipolar 2 disorder 06/01/2018 Intractable migraine with au ra without status migrainosus 06/01/2018 11/27/2023 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 09/16/2015 11/27/2023 documented as of this encounter (statuses as of 12/27/2023) Immunizations Name Administration Dates Next Due COVID-19 [...] 0 08/19/1998 - 09/16/2018 Smokeless Tobacco: Never Tobacco Cessation:Counseling Given: Not Answered Comments:No passive smoke exposures Alcohol Use Standard Drinks/Week Comments Not Currently [...] Sign Reading Time Taken Comments Blood Pressure 126/84 12/27/2023 10:18 AM EDT Pulse - - Temperature - - Respiratory Rate - - Oxygen Saturation - - Inhaled Oxygen Concentration - - Weight - - Height - - Body Mass Index - - documented in this encounter Progress Notes * Jen Corrales MED ASSIST - 12/27/2023 10:22 AM EDT Rosey Hua presented for blood pressure check per provider orders. The blood pressure was obtained using the left arm in the sitting position using a adult cuff. The results were charted in [facility]. BP Readings from Last 3 Encounters: 12/27/23 126/84 11/18/23 118/78 10/23/23 122/80 BP 126/84 | LMP (LMP Unknown) Patient denies headache, pressure in head, dizziness, lightheadedness, chest discomfort, focal neurological symptoms, change in vision, nose bleeds. Did patient take medications today? Yes Patient was instructed to follow-up as per their next scheduled appt Pt did an automatic cuff at [facility] that read 129/96. Pt was concerned and wanted to follow up in office about it with a BP check documented in this encounter Plan of Treatment Upcoming Encounters Date Type Department Care Team (Latest Contact Info) Description 4 12:40 PM EDT Office Visit Otolaryngology, [place] [address] [place] [address] Ravin Kam PA-C [address] [place] [address] 4 10:30 AM EDT Telemedicine Gastroenterolog y, [address] [place] [address] Anaya Pardo CRNP [address] [place] [address] 4 9:45 AM EDT Hospital Encounter ENDO [facility], Endoscopy Room [facility] [address] [place] [phone] Franky Alcazar MD [address] [place] [address] 4 9:45 AM EDT - 4 10:30 AM EDT Surgery ENDO [facility], Endoscopy Room [facility] [address] [place] [address] Franky Alcazar MD [address] [place] [address] ESOPHAGOGASTRODUODENOSCOPY (EGD), FLEXIBLE, TRANSORAL, ENDOSCOPIC ULTRASOUND 4 2:00 PM EDT Office Visit Gynecology/Obst etrics [facility] [address] [place] [address] Rowan Narvaez CRNP [address] [place] [address] 4 11:20 AM EST Office Visit Neurology [facility] 200 [facility] [place], [place] [address] Germán Martines, DO [address] [facility] [place], [place] [address] Scheduled Orders Name Type Priority Associated Diagnoses Orde r Schedule BLOOD PRESSURE Procedures Routine Elevated blood pressure, situational Ordered: 12/27/2023 Scheduled Procedures Name Priority Associated Diagnoses Date/Ti me ESOPHAGOGASTRODUODENOSCOPY ( EGD), FLEXIBLE, TRANSORAL, ENDOSCOPIC ULTRASOUND Dilated cbd, acquired 01/19/2024 9:45 AM EDT COLONOSCOPY FLEXIBLE PROXIMA L DIAGNOSTIC Recall History of colon polyps Health Maintenance Due Date Last Done Comments [...] as of this encounter Visit Diagnoses Diagnosis Elevated blood pressure, situational- Primary Elevated blood pressure reading without diagnosis of hypertension Dilated cbd, acquired Other specified disorders of biliary tract documented in this encounter Advance Directives Healthcare Agents on File Name Relationship Healthcare Agent Relationshi p Communication Samuel Krystle Significant Other Health Care Re presentative (appointed verbally by patient or by statute hierarchy) Care Teams Channel Opener Relationship Specialty Start Date End Date Javon Garcia III, MD [address] [facility] [place] [address] PCP - General Family Medicine 09/20/18 documented as of this encounter"
--- OUTSIDE RECORDS SUMMARY | 2024-02-04 03:53 | External Medical Summary | Summary of Care ---
Author Name Unknown Organization [facility] Address [address] [place] [address] Phone [phone] Care Team Providers Care Quantitative Software Engineer Name Role Phone Jose YAN MD, Javon Stahl Primary Care Provider [phone] Reason for Visit * Reason Comments Re-Check Discuss c.diff Encounter Details Date Type Department Care Team (Latest Contact Info) Description 12/21/2023 10:20 AM EDT Telemedicine General Internal Medicine [facility] [address] [place] [address] Dayanara Green MD [address] [place] [address] History of Clostridioides difficile colitis*; Cognitive impairment; Cervical radiculopathy; Acquired hypothyroidism; Intractable migraine with aura without status migrainosus; Recurrent major depression resistant to treatment (HCC); Seizure disorder, simple partial, 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 18.2 mL 6 1 Active Ondansetron HCl 4 MG Oral TabletIndications:N [...] MG Oral Tablet at bedtime. 3 Active medroxyPROGESTERone Acetate 2.5 MG Oral Tablet [...] noon, evening) 10 Tablet 1 3 Active Additional Information Patient not taking.Reported on [...] tightness or cough). 18 g 4 Active Additional Information Patient not taking.Reported on [...] (Carafate) 4 times a day. 4 Active Pantoprazole Sodium 40 MG Oral Tablet Delayed Release (Protonix) Take 1 Tablet by mouth in the morning. 4 Active oxyCODONE-Acetamino phen 5-325 MG Oral Tablet (Percocet) Take 1 Tablet by mouth every 6 hours as needed. Using 1/2 tab 4 Active Zonisamide 50 MG Oral Capsule (Zonegran)Indicatio ns:Chronic migraine without aura without status migrainosus, not intractable TAKE 1 CAPSULE IN MORNING AND 2 CAPSULES AT NIGHT 90 Capsule 5 4 Active Metoprolol Tartrate 25 MG Oral Tablet (Lopressor) Take 1 Tablet by mouth in the morning. 4 12/21/19 24 Discontinu ed(End of Procedure) Hospital, Clinic, or Other Facility Administered Medication [...] as of this encounter (statuses as of 12/22/2023) Active Problems Problem Noted Date Diagnosed Date [...] as of this encounter (statuses as of 12/22/2023) Resolved Problems Problem Noted Date Diagnosed Date Resolved Date COVID-19 virus infection 04/21/202301/2024 Alzheimer's disease, unspecified (CODE) 03/24/2023 09/06/2023 Food insecurity 04/28/2021 06/04/2022 Overview: Per [facility] Protocol Bipolar 2 disorder 06/01/2018 Intractable migraine with au ra without status migrainosus 06/01/2018 11/27/2023 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 09/16/2015 11/27/2023 documented as of this encounter (statuses as of 12/22/2023) Immunizations Name Administration Dates Next Due COVID-19 [...] as of this encounter Progress Notes * Dayanara Green MD - 12/21/2023 10:31 AM EDT Images from the original note were not included. History of Present Illness Rosey Hua is a 48 year old female that presents for Re-Check (Discuss c.diff) 48 year old YOfemale with PMH as listed below presents here for recheck of diarrhea. Acute concern :- -patient had recurrence of diarrhea and abdominal pain, stool test was negative for C diff but thencontinued to have problem so saw outside GI and ID. She was started on vancomycin tapering dose which has not helped yet and worried. Also recommended to start on probiotic and avoidance dairy. We went through outside record together -diet have been worse for last couple days with going up to 10-12 per day, feels weak and fatigued. -high stress with ongoing C diff Interimmedical history : As above. Has been scheduled for ERCP for dilated CBD Watching diet and exercise : Not so much now Routine labs : Reviewed Routine HM : Did not address Chronic medical problem: reviewed and stable Physical Exam There were no vitals filed for this visit. Physical Exam Vitals reviewed: exam done with the help of patient and may not be accurate due to video quality. Constitutional: Appearance: Normal appearance. She is normal weight. HENT: Head: Normocephalic. Pulmonary: Effort: No respiratory distress. Abdominal: General: There is no distension. Tenderness: There is abdominal tenderness (Mild). I have reviewed the following results: Assessment and Plan History of Clostridioides difficile colitis Continue with vancomycin taper as directed by Infectious Disease Dr. 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 Telemedicine: Patient location: HOME. I was in a hospital or clinic location. After connecting through televideo,patient was verified with two unique identifiers. Patient (or authorized legal mechanical service representative) was then informed that this was a Telemedicine visit and being conducted confidentially over secure lines. Methods to assure confidentiality were taken. Patient acknowledged consent and understanding of pr ivacy and security of the Telemedicine visit. The patient agreed to participate. documented in this encounter Plan of Treatment Upcoming Encounters Date Type Department Care Team (Latest Contact Info) Description 4 12:40 PM EDT Office Visit Otolaryngology, [place] [address] [place] [address] Ravin Kam PA-C [address] [address] 4 10:30 AM EDT Telemedicine Gastroenterolog y, [facility] [address] [address] Anaya Pardo CRNP [address] [place] [address] [address] 4 9:45 AM EDT Hospital Encounter ENDO [facility], Endoscopy Room [facility] [address] [place] [address] Franky Alcazar MD [address] [place] [address] 4 9:45 AM EDT - 4 10:30 AM EDT Surgery ENDO [facility], Endoscopy Room [facility] [address] [place] [phone] Franky Alcazar MD [address] [place] [address] ESOPHAGOGASTRODUODENOSCOPY (EGD), FLEXIBLE, TRANSORAL, ENDOSCOPIC ULTRASOUND 4 2:00 PM EDT Office Visit Gynecology/Obst etrics [facility] [address] [place] [address] Rowan Narvaez CRNP [address] [place] [address] 4 11:20 AM EST Office Visit Neurology [facility] [address] [place], [place] [address] Germán Martines, DO [address] [place], [place] [address] Scheduled Procedures Name Priority Associated Diagnoses Date/Ti [...] as of this encounter Visit Diagnoses Diagnosis History of Clostridioides difficile colitis- Primary Cognitive impairment Unspecified persistent mental disorders due to conditions classified elsewhere Cervical radiculopathy Brachial neuritis or radiculitis nos Acquired hypothyroidism Unspecified hypothyroidism Intractable migraine with aura without status migrainosus Migraine with aura, with intractable migraine, so stated, without mention of status migrainosus Recurrent major depression resistant to treatment (HCC) Major depressive disorder, recurrent episode, unspecified Seizure disorder, simple partial, 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) Localization-related (focal) (partial) epilepsy and epileptic syndromes with simple partial seizures, without mention of intractable epilepsy Xerophthalmia Conjunctival xerosis Rhinitis, nonallergic Chronic rhinitis Dilated cbd, acquired Other specified disorders of biliary tract documented in this encounter Advance Directives Healthcare Agents on File Name Relationship Healthcare Agent Relationshi p Communication Samuel Krystle Significant Other Health Care Re presentative (appointed verbally by patient or by statute hierarchy) Care Teams Quantitative Software Engineer Relationship Specialty Start Date End Date Javon Garcia III, MD [address] [place] [address] PCP - General Family Medicine 09/20/18 documented as of this encounter
--- OUTSIDE RECORDS SUMMARY | 2024-02-04 03:53 | External Medical Summary | Summary of Care ---
Author Name Unknown Organization [facility] Address [address] [place] [address] Phone [phone] Care Team Providers Care Cured Meat Packing Supervisor Name Role Phone Jose YAN MD, Javon Stahl Primary Care Provider [phone] Encounter Details Date Type Department Care Team (Late st Contact Info) Description 12/27/2023 Telephone Gastroenterology, [facility] [address] [place] [address] Franky Alcazar MD [address] [place] [address] Allergies Active Allergy Reactions Criticality Noted Date [...] 09/06/2023 Food insecurity 04/28/2021 06/04/2022 Overview: Per [facility] Protocol Bipolar 2 disorder 06/01/2018 Intractable [...] Visit Otolaryngology, [place] [address] [place] [address] Ravin Kam PA-C [address] [place] [address] 4 10:30 AM EDT Telemedicine Gastroenterolog y, [facility] [address] [place] [address] Anaya Pardo CRNP [address] [place] [address] 4 9:45 AM EDT Hospital Encounter ENDO [facility], Endoscopy Room [facility] [address] [place] [phone] Franky Alcazar MD [address] [place] [address] 4 9:45 AM EDT - 4 10:30 AM EDT Surgery ENDO [facility], Endoscopy Room [facility] [address] [place] [address] Franky Alcazar MD [address] [place] [address] ESOPHAGOGASTRODUODENOSCOPY (EGD), FLEXIBLE, TRANSORAL, ENDOSCOPIC ULTRASOUND 4 2:00 PM EDT Office Visit Gynecology/Obst etrics [facility] [address] [place] [address] Rowan Narvaez CRNP [address] [place] [address] 4 2:30 PM EST Hospital Encounter ENDO [facility], Endoscopy Room [facility] [address] [place] [address] Earle Camarillo MD [address] [place] [address] 4 2:30 PM EST - 4 3:00 PM EST Surgery ENDO [facility], Endoscopy Room [facility] [address] [place] [phone] Earle Camarillo MD [address] [place] [address] COLONOSCOPY FLEXIBLE PROXIMAL DIAGNOSTIC 4 11:20 AM EST Office Visit Neurology [facility] [address] [place], [place] [address] Germán Martines, DO [address] [place], [place] [address] Scheduled Procedures Name Priority Associated Diagnoses Date/Ti [...] Additional history exists Pap Smear 09/28/2026 09/29/2023, 0212/2021, 01/06/2019 Colonoscopy 12/12/2026 12/12/2021, 12/12/2021 Colorectal Cancer [...] patient or by statute hierarchy) Care Teams Cured Meat Packing Supervisor Relationship Specialty Start Date End Date Javon Garcia III, MD [address] [place] [address] PCP - General Family Medicine 09/20/18 documented as of this encounter
--- OUTSIDE RECORDS SUMMARY | 2024-02-04 03:53 | External Medical Summary | Summary of Care ---
Author Name Unknown Organization [facility] Address [address] [place] [address] Phone [phone] Care Team Providers Care Stock Clerk Name Role Phone Jose YAN MD, Javon Stahl Primary Care Provider [phone] Reason for Visit * Reason Comments NEW PATIENT Sinus/ear issues Encounter Details Date Type Department Care Team (Latest Contact Info) Description 12/28/2023 12:40 PM EDT Office Visit Otolaryngology, [place] [address] [address] [address] Ravin Kam PA-C [address] [place] [address] [address] Sensorineural hearing loss (SNHL) of left ear with unrestricted hearing of right ear*; Sensation of fullness in both ears Allergies Active Allergy Reactions Criticality Noted Date [...] mouth every 6 hours as needed. Using 1/ tab 11/16/2023 Active Zonisamide 50 MG Oral [...] 09/06/2023 Food insecurity 04/28/2021 06/04/2022 Overview: Per [facility] Protocol Bipolar 2 disorder 06/01/2018 [...] Sign Reading Time Taken Comments Blood Pressure - - Pulse - - Temperature 36.6 C (97.8 F) 12/28/2023 1 2:32 PM EDT Respiratory Rate - - Oxygen Saturation - - Inhaled Oxygen Concentration - - Weight 65.7 kg (144 lb 12.8 oz) 024 12:32 PM EDT Height 157.5 cm (5' 2.01") 12/28/2023 1 2:32 PM EDT Body Mass Index 26.48 12/28/2023 12:32 PM EDT documented in this encounter Progress Notes * Ravin Kma PA-C - 12/28/2023 1:44 PM EDT Nursing Notes: Vanessa Johnson LPN 12/28/23 1240 Signed Chief Complaint Patient presents with NEW PATIENT Sinus/ear issues Rosey Hua is a 48 year old female who presents today for ear and sinus issues. Reports she gets frequent ear infections-has had c diff from being on antibiotics constantly. Sates she does sinus rinses sometimes. Has used Flonase daily in the past but stopped because it dried her nose out. NO other concerns voiced. History of Present Illness This 48 year old YO female is seen at the request of Javon Garcia III, MD for the evaluation of earand sinonasal symptoms. The patient reported frequent bouts of OM. She has experienced several episodes of OM this year which required PO abx and subsequently led to c. Diff infection. She is currently asymptomatic in regards to her ears. Denied otalgia, otorrhea, aural fullness, or tinnitus. She has a known history of left sided hearing loss which has been present for several years per patient. She also struggles with s easonal allergies. She experiences nasal congestion, post nasal drainage, and intermittent facial pain/pressure. She has tried nasal steroid sprays in the past, but discontinued due to nasal dryness.She does not perform nasal saline irrigations. The patient denied nasal obstruction, taste/smell disturbance, history of nasal fractures, epistaxis, vision changes, and facial swelling. 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) Recurrent major depression resistant to treatment (HCC) Cervical radiculopathy Cognitive impairment Hyperreflexia Tear film insufficiency Xerophthalmia Hypothyroidism Rhinitis, nonallergic History of 2019 novel coronavirus disease (COVID-19) History of Clostridioides difficile colitis Overweight (BMI 25.0-29.9) Past Medical History: Diagnosis Date Bipolar 2 disorder (HCC) Cervical radiculopathy 07/28/2018 Cognitive impairment 05/31/2013 History of 2019 novel coronavirus disease (COVID-19) 11/27/2023 History of Clostridioides difficile colitis 11/27/2023 Hyperreflexia 04/01/2018 Hypothyroidism Intractable migraine with aura without status migrainosus 06/01/2018 Migraine Recurrent major depression resistant to treatment (HCC) 07/09/2020 Seizure disorder, simple partial, 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) 01/11/2020 Tear film insufficiency 04/10/2013 Vertiginous syndromes and other disorders of vestibular system 09/16/2015 Past Surgical History: Procedure Laterality Date BREAST LESION,OTHER,EXCISION Right 2010 Benign DELIVERY 02/23/2007 COLONOSCOPY, DIAGNOSTIC (RECTUM) 12/12/2021 benign adenomatous polyp, repeat 5 yrs / COLONOSCOPY FLEXIBLE PROXIMAL DIAGNOSTIC performed by Mayco Osborne MD at ENDOSCOPY [facility] DENTAL SURGERY PROCEDURE NEC Family History Problem Relation Name Age of Onset Migraines Mother V whetstine Allergies Mother V whetstine Allergic rhinitis Gastro-intestinal disorder Mother V whetstine Arthritis Father J Stich knee replacement Heart disease Father J Stich bypass Hypertension Father J Stich Allergies Father J Stich Chronic rhinitis Alcohol and Other Disorders Associated Father J Stich Musculo-skeletal Disorder Father J Stich Knee replacement Bipolar Disorder Sister Migraines Grandmother (Maternal) M black Hypertension Grandmother (Maternal) M black Diabetes Grandfather (Maternal) F black type 1 Arthritis Grandmother (Paternal) C Stich Valvular heart disease Grandmother (Paternal) C Stich Alcohol and Other Disorders Associated Grandfather (Paternal) J Stich Stroke Grandfather (Paternal) J [facility] Allergies Son Jaiden Tree nut allergy Ovarian cancer Aunt (Maternal) Social History Tobacco Use Smoking status: Former Current packs/day: 0.00 Average packs/day: 1 pack/day for 20.1 years (20.1 ttl pk-yrs) Types: Cigarettes Start date: 08/19/1998 Quit date: 09/16/2018 Years since quittin.2 Smokeless tobacco: Never Tobacco comments: No passive smoke exposures Substance Use Topics Alcohol use: Not Currently Vaping/E-Cigarette Use Vaping/E-Cigarette Use Never User Vaping/E-Cigarette Substances Nicotine No Other No Flavoring No THC No Cannabidiol (CBD) No Vaping/E-Cigarette Devices Disposable No Pre-filled or Refillable Cartridge No Refillable Tank No Pre-filled Pod No Medications Current Outpatient Medications Medication Sig Dispense Refill Fluticasone Propionate 50 MCG/ACT Nasal Suspension (Flonase) [...] inhalation solution 2.5 mg 2.5 mg Nebulizer PRJavon Sharp III, MD Allergies Review of patient's allergies indicates: Allergen Reactions Reglan [Metoclopramide Hcl] Pt felt like she crawling out of skin Review of Systems Negative for constitutional, heart, lung, liver, kidney, digestive, hematologic, neurologic, rheumatologic, or endocrine complaints except as per history of present illness and past medical history Physical Exam Temp 36.6 C (97.8 F) (Temporal Artery) | Ht 1.575 m (5' 2.01") | Wt 65.7 kg (144 lb 12.8 oz) | LMP (LMP Unknown) | BMI 26.48 kg/m | BSA 1.7 m General: This is a healthy appearing female who appears her stated age. The patient is alert and appropriately verbally conversant without hoarseness. Face: The face was inspected and no cutaneous masses or lesions were visualized. There was no erythema or edema noted. Facial movement was symmetric without weakness. No skin lesions were detected. Eyes: Extra-ocular muscle function was intact. No nystagmus was observed. Pupils were equal. Ears: Examination of the ears revealed that the auricles were normally formed with no lesions. The right external auditory canal was WNL. The right TM was WNL. The right middle ear space was WNL. Theleft external auditory canal was WNL. The left TM was WNL. The left middle ear space was WNL Nose: Septum nonobstructing, turbinates normal, no masses, polyps, or mucopus. Oral Cavity: Examination of the oral cavity revealed no mass lesions nor infection. The palate was noted to be intact without evidence of clefting. The tongue exhibited normal mobility. The palpated portion of the tongue base was soft. Mucosa was moist without lesion. The lips were free of lesion. Gums were free of inflammation. Dentition: Unremarkable Oropharynx: The oral pharynx was free of mass lesion or mucosal abnormality. The palate was noted to be without lesion. The uvula was normal appearing with no deviation or lesions. The tonsils were unremarkable. Neck: Visualization and palpation of the neck revealed no mass lesions, no thyromegaly or thyroid masses. No skin lesions or inflammatory processes were detected. The cervical musculature was normal to palpation. The parotid and submandibular glands were normal to palpation. Lymphatics (cervical): There were no palpable lymph nodes in the posterior triangle, submandibular triangle, jugulodigastric region, or central neck. Assessment and Plan: Sensorineural hearing loss (SNHL) of left ear with unrestricted hearing of right ear (Primary) Sensation of fullness in both ears Plan: Findings and recommendations were discussed with the patient. Pertinent provider notes, labs,and imaging were reviewed. Normal ear examination today. Return in 6 months for repeat audiogram due to asymmetry. Encouraged nasal saline irrigations BID and nasal steroid spray daily. Can use vaseline or ayr gel following nasal steroid to counteract nasal dryness. Ravin Kam PA-C 12/28/2023 2:08 PM documented in this encounter Nursing Notes * Vanessa Johnson LPN - 12/28/2023 12:36 PM EDT Chief Complaint Patient presents with NEW PATIENT Sinus/ear issues Rosey Hua is a 48 year old female who presents today for ear and sinus issues. Reports she gets frequent ear infections-has had c diff from being on antibiotics constantly. Sates she does sinus rinses sometimes. Has used Flonase daily in the past but stopped because it dried her nose out. NO other concerns voiced. documented in this encounter Plan of Treatment Upcoming Encounters Date Type Department Care Team (Latest Contact Info) Description 4 3:00 PM EDT Office Visit Otolaryngology, [place] [address] [place] [address] [facility], Audiology [facility] [address] [address] Arrived 4 10:30 AM EDT Telemedicine Gastroenterolog y, [facility] [address] [address] Anaya Pardo CRNP [address] [place] [address] 4 9:45 AM EDT Hospital Encounter ENDO [facility], Endoscopy Room [facility] [address] [place] [address] [phone] Franky Alcazar MD [address] [place] [address] [address] 4 9:45 AM EDT - 4 10:30 AM EDT Surgery ENDO [facility], Endoscopy Room [facility] [address] [place] [address] Franky Alcazar MD [address] [place] [address] ESOPHAGOGASTRODUODENOSCOPY (EGD), FLEXIBLE, TRANSORAL, ENDOSCOPIC ULTRASOUND 4 2:00 PM EDT Office Visit Gynecology/Obst etrics [facility] [address] [place] [address] Rowan Narvaez CRNP [address] [place] [address] 4 2:30 PM EST Hospital Encounter ENDO [facility], Endoscopy Room [facility] [address] [place] [address] Earle Camarillo MD [address] [place] [address] 4 2:30 PM EST - 4 3:00 PM EST Surgery ENDO [facility], Endoscopy Room [facility] [address] [place] [address] Earle Camarillo MD [address] [place] [address] COLONOSCOPY FLEXIBLE PROXIMAL DIAGNOSTIC 4 11:20 AM EST Office Visit Neurology [facility] [address] [facility] [place], [place] [address] Germán Martines, [address] [place] [address] 5 2:20 PM EST Office Visit Otolaryngology, [place] [address] [place] [phone] Ravin Kam PA-C [address] [place] [address] 2:30 PM EST Office Visit Otolaryngology, [facility] [place] [address] [place] [address] [facility], Audiology [facility] [address] [facility] [place] [address] Scheduled Procedures Name Priority Associated Diagnoses Date/Ti [...] Additional history exists Pap Smear 09/28/2026 09/29/2023, 02/0 12/2021, 01/06/2019 [...] as of this encounter Visit Diagnoses Diagnosis Sensorineural hearing loss (SNHL) of left ear with unrestricted hearing of right ear- Primary Sensation of fullness in both ears Dilated cbd, acquired Other specified disorders of biliary tract History of colon polyps Personal history of colonic polyps documented in this encounter Advance Directives Healthcare Agents on File Name Relationship Healthcare Agent Relationshi p Communication Samuel Dalton Significant Other Health Care Re presentative (appointed verbally by patient or by statute hierarchy) Care Teams Stock Clerk Relationship Specialty Start Date End Date Javon Garcia III, MD [address] [place] [address] PCP - General Family Medicine 09/20/18 documented as of this encounter
--- OUTSIDE RECORDS SUMMARY | 2024-02-04 03:53 | External Medical Summary | Summary of Care ---
Author Name Unknown Organization [facility] Address [address] [place] [address] Phone [phone] Care Team Providers Care Soaker Soda Worker Name Role Phone Jose YAN MD, Javon Stahl Primary Care Provider [phone] Reason for Visit * Reason Onset Date Comments Blood Pressure Check 12/27/2023 Encounter Details Date Type Department Care Team (Late st Contact Info) Description 12/27/2023 Telephone Family Practice [facility] [address] [place] [address] Javon Garcia III, MD [address] [place] [address] Blood Pressure Check Allergies Active Allergy Reactions [...] 2.5 mg NEBULIZER PRN 09/16/2023 09/15/2024 Act jennifre documented as of this encounter (statuses as [...] encounter Miscellaneous Notes * Telephone Encounter - Monet Parks LPN - 12/28/2023 8:43 AM EDT Patient aware and verbalized understanding * Telephone Encounter - Monet Parks LPN - 12/28/2023 8:41 AM EDT Images from the original note were not included. Dayanara Green MD [facility] Internal Medicine Nurse Pool/Class16 hours ago (4:19 PM) BP here are all fine so no need to worry . BP cuff at stored can be a bit high by 5-15 points . No change in plan * Telephone Encounter - Jen Corrales MED ASSIST - 12/27/2023 10:24 AM EDT Rosey Hua presented for blood [...] appt Pt did an automatic cuff at [facility] that read 129/96. Pt was concerned and wanted to follow up in office about it with a BP check - routing to PCP and Dr Green who she has seen recently documented in this encounter Plan of Treatment Upcoming Encounters Date Type Department Care Team (Latest Contact Info) Description 4 12:40 PM EDT Office Visit Otolaryngology, [place] [address] [place] [address] Ravin Kam PA-C [address] [address] 4 10:30 AM EDT [facility] [address] [place] [address] Anaya Pardo CRNP [address] [place] [address] 4 9:45 AM EDT Hospital Encounter ENDO [facility], Endoscopy Room [facility] [address] [place] [phone] Franky Alcazar MD [address] [place] [address] 4 9:45 AM EDT - 4 10:30 AM EDT Surgery ENDO [facility], Endoscopy Room [facility] [address] [place] [address] Franky Alcazar MD [address] [place] [address] ESOPHAGOGASTRODUODENOSCOPY (EGD), FLEXIBLE, TRANSORAL, ENDOSCOPIC ULTRASOUND 4 2:00 PM EDT Office Visit Gynecology/Obst etrics [facility] [address] [place] [address] Rowan Narvaez CRNP [address] [place] [address] 4 2:30 PM EST Hospital Encounter ENDO [facility], Endoscopy Room [facility] [address] [place] [address] Earle Camarillo MD [address] [place] [address] 4 2:30 PM EST - 4 3:00 PM EST Surgery ENDO [facility], Endoscopy Room [facility] [address] [place] [address] Earle Camarillo MD [address] [place] [address] COLONOSCOPY FLEXIBLE PROXIMAL DIAGNOSTIC 4 11:20 AM EST Office Visit Neurology [facility] [place] [address] [place] [address] Germán Martines, [address] [place] [address] Scheduled Procedures Name Priority Associated Diagnoses Date/Ti [...] patient or by statute hierarchy) Care Teams Soaker Soda Worker Relationship Specialty Start Date End Date Javon Garcia III, MD [address] [facility] [place] [address] PCP - General Family Medicine 09/20/18 documented as of this encounter"
--- OUTSIDE RECORDS SUMMARY | 2024-02-04 03:53 | External Medical Summary | Summary of Care ---
Author Name Unknown Organization [facility] Address [address] [place] [address] Phone [phone] Care Team Providers Care Energy Control Officer Name Role Phone Jose YAN MD, Javon Stahl Primary Care Provider [phone] Encounter Details Date Type Department Care Team (Late st Contact Info) Description 12/28/2023 Orders Only Otolaryngology [facility] [address] [place] [address] Maddy Lassiter MD [address] [facility] [place] [address] Allergies Active Allergy Reactions Criticality Noted Date [...] 09/06/2023 Food insecurity 04/28/2021 06/04/2022 Overview: Per [employer] Pharmacy Protocol Bipolar 2 disorder 06/01/2018 Intractable [...] Visit Otolaryngology, [place] [address] [address] [facility], Audiology [facility] [place] [address] [place] [address] Arrived 4 10:30 AM EDT [facility] [address] [place] [address] Anaya Pardo CRNP [address] [place] [address] 4 9:45 AM EDT Hospital Encounter ENDO [facility], Endoscopy Room [facility] [address] [place] [phone] Franky Alcazar MD [address] [place] [address] 4 9:45 AM EDT - 4 10:30 AM EDT Surgery ENDO [facility], Endoscopy Room [facility] [address] [place] [phone] Franky Alcazar MD [address] [place] [address] ESOPHAGOGASTRODUODENOSCOPY (EGD), FLEXIBLE, TRANSORAL, ENDOSCOPIC ULTRASOUND 4 2:00 PM EDT Office Visit Gynecology/Obst etrics [facility]k [facility] [address] [place] [address] Rowan Narvaez CRNP [address] [place] [address] 4 2:30 PM EST Hospital Encounter ENDO [facility], Endoscopy Room [facility] [address] [place] [phone] Earle Camarillo MD [address] [place] [address] 4 2:30 PM EST - 4 3:00 PM EST Surgery ENDO [facility], Endoscopy Room [facility] [address] [place] [phone] Earle Camarillo MD [address] [place] [address] COLONOSCOPY FLEXIBLE PROXIMAL DIAGNOSTIC 4 11:20 AM EST Office Visit Neurology [facility] [address] [place] [address] Germán Martines, DO [address] [place] [address] 5 2:40 PM EST Office Visit Otolaryngology, [place] [address] [address] Ravin Kam PA-C [address] [id number] Scheduled Procedures Name Priority Associated Diagnoses Date/Ti [...] Procedure Name Priority Date/Time Associated Diagnosis Comments AUDIOMETRIC RESULT 12/28/2023 documented in this encounter Results * AUDIOMETRIC RESULT (12/28/2023) 12/28/2023 Maddy Lassiter MD HEARING SERVICE S documented in this encounter Advance Directives Healthcare Agents on File Name Relationship Healthcare Agent Relationshi p Communication Samuel Krystle Significant Other Health Care Re presentative (appointed verbally by patient or by statute hierarchy) Care Teams Energy Control Officer Relationship Specialty Start Date End Date Javon Garcia III, MD [address] [place] [address], [place] [phone] PCP - General Family Medicine 09/20/18 documented as of this encounter
[2024-02-04] MEDS: LEVOTHYROXINE SODIUM 50 MCG TABLET PO SCH (06:00)
[2024-02-04 07:49] LABS: Basophils # (auto) 0.05 K/uL (0.00-0.20); Basophils % (auto) 0.5 %; Eosinophils # (auto) 0.07 K/uL (0.00-0.50); Eosinophils % (auto) 0.7 %; Hematocrit (blood only) 39.6 % (37.0-47.0); Hemoglobin 13.7 g/dl (12.0-16.0); Immature Granulocytes # (auto) 0.02 K/uL (0.01-0.20); Immature Granulocytes % (auto) 0.2 %; Lymphocytes # (auto) 1.69 K/uL (1.20-3.40); Lymphocytes % (auto) 17.6 %; Mean Corpuscular Hemoglobin 29.7 pg (25.0-34.0); Mean Corpuscular Hgb Conc 34.6 g/dL (32.0-36.0); Mean Corpuscular Volume 85.9 fL (80.0-100.0); Mean Platelet Volume 9.9 fL (9.4-12.4); Monocytes # (auto) 0.58 K/uL (0.11-0.59); Neutrophils # (auto) 7.18 K/uL (1.40-6.50); Platelet Count 263 K/uL (130-400); RDW Coefficient of Variation 12.6 % (11.5-14.5); RDW Standard Deviation 39.3 fL (36.4-46.3); Red Blood Count 4.61 M/uL (4.20-5.40); White Blood Count 9.59 K/ul (4.8-10.8)
[2024-02-04] MEDS: hydrOXYzine HCl 10 MG TAB PO PRN (07:59)
--- NOTE | 2024-02-04 10:22 | Gastrointestinal Consultation ---
Date of Consultation February 04, 2024 Assessment & Plan (1) Diarrhea: 48 year old female with history of recurrent C. difficile following with [facility] ID and [facility] who reports Vancomycin therapy x 2, vancomycin taper x 1 w/ recent return of diarrhea symptoms, positive c.diff testing on 01/24 started on Dificid who is admitted through the ED w/ abdominal pain and diarrhea. C.diff testing is negative, CT suggestive of diarrhea but no reports of colitis. DDX discussed: c.diff colitis, post-infectious IBS, vs other. She was to have an OP colonoscopy in January, but this was rescheduled due to the c.diff infection. Continue full course of Dificid w/ tapering course Recommend a trial of scheduled Bentyl 10 mg three times daily Recommend a trial of Questran 2g once daily, may increase to 4g as tolerated avoiding constipation Recommend a low FODMAPs diet as tolerated Reschedule your colonoscopy with [facility] Avoid unnecessary use of antibiotics May use a daily probiotic Can trial OTC IB-Joelle once discharged If she has another recurrent episode of c.diff consider evaluation for a fecal transplant Thank you for allowing us to participate in the care of this patient. Please call with any acute changes, questions or concerns. Please see addendum below with additional recommendation from my supervising physician. I spent a total of 60 minutes on the date of service in review of patient's record, and previously obtained information in person and appropriate medical visit, discussion and education of plan, with patient and/or caregiver, placing orders for tests/referral/procedures as medically necessary and documentation of pertinent clinical information in patient's medical records for their visit today. Supervising Physician Co-Signing Physician Notes I saw and examined this patient with our nurse practitioner and agree with her assessment and plan. Patient with a history of recurrent C. difficile treated with Dificid at the present time. Presents with persistent diarrhea and abdominal pain. No signs of toxicity. CT scan does not show significant colitis. Repeat C. difficile this test negative. Recommend adding cholestyramine 4 g daily at bedtime to help control her symptoms. History of Present Illness Reason for Consultation: worsening diarrhea Requesting Physician: Katelynn Attending Physician: Javon Pace, DO History of Present Illness 48 year old female with history of recurrent C. difficile currently on Dificid, hypothyroidism, anxiety/mood disorder, seizure disorder, migraine, cognitive impairment as per records, past tobacco abuse admitted with abd cramping, diarrhea - GI was asked to evaluate. Pt was seen and evaluated, chart reviewed. Notes she was recently evaluated by LEEANN Murcia at [facility] for recurrent C.diff. Has been treated x 3 with oral vancomycin. She notes that she was recently tested for c.diff through [facility] and was positive again and started on Dificid last . Has been taking this, however, no improveme nts. Endorses abd pain, cramping, decreased appetite, nausea w/o vomiting and watery stool mixed with BRB intermittently about 10 + times daily. No fever, chills, CP, SOB. Notes she has been evaluated by ID and GI through [facility] as well. C.diff 02/03/24 negative gene C.diff 01/25/24 positive started on Dificid C.diff 12/14/23 negative C.diff 11/26/23 negative C.diff 11/10/23 negative toxin, positive gene C.diff 09/22/23: negative CTAP 2023: Mild prominence of the bladder wall is nonspecific. Please correlate with urinalysis if concerned for cystitis. Fluid in the colon is suggestive of diarrheal state. Colonoscopy 2021: - One 8 mm polyp at 20 cm proximal to the anus, removed with a hot snare. Resected and retrieved. - The examination was otherwise normal on direct and retroflexion views. Allergies Allergy/AdvReac Type Severity Reaction Status Date / Time metoclopramide [From Reglan] AdvReac Intermediate FELT LIKE Verified 02/03/24 21:25 "SKIN CRAWLING" Home Medications Medication Instructions Recorded Confirmed Type fremanezumab-vfrm 225 mg/1.5 mL 225 mg subcut UD 12/04/19 02/03/24 History subcutaneous syringe (Ajovy Syringe) sumatriptan succinate 6 mg/0.5 mL 6 mg subcut UD PRN Migraine 12/04/19 02/03/24 History subcutaneous pen injector Headache zonisamide 50 mg capsule 50 mg PO QAM 11/11/20 02/03/24 History ondansetron HCl 4 mg tablet 4 mg PO Q6H PRN Nausea 09/04/21 02/03/24 History dextromethorphan IR 45 1 tab PO BID 11/02/23 02/03/24 History mg-bupropion ER 105 mg biphasic tablet (Auvelity) fluticasone propionate 50 2 spray intranasal DAILY PRN 11/02/23 02/03/24 History mcg/actuation nasal ALLERGIES spray,suspension levothyroxine 50 mcg tablet 50 mcg PO DAILYBB 11/02/23 02/03/24 History lumateperone 42 mg capsule 42 mg PO HS 11/02/23 02/03/24 History (Caplyta) meclizine 25 mg tablet 25 mg PO TID PRN Dizziness 11/02/23 02/03/24 History suvorexant 10 mg tablet (Belsomra) 10 mg PO DAILY 11/02/23 02/03/24 History fidaxomicin 200 mg tablet (Dificid) 200 mg PO Q OTHER DAY 02/03/24 02/03/24 History zonisamide 100 mg capsule 100 mg PO HS 02/03/24 02/03/24 History Patient History Medical History (Updated 02/04/24 @ 10:26 by LEEANN Negrete) Epilepsy Surgical History Hx of section Social History Smoking Status: Former smoker Tobacco Type: Cigarettes Cigarettes Per Day: 1 pack per day; Smoking End Date: 6 yrs ago; Second Hand Exposure: Yes; Do You Dip or Chew Tobacco: No; Hx Alcohol Use: No Hx Substance Use: Yes Last Used Substance: Days (ago) Last Used Substance Other:: Thursday 02/01 Substance Use Type Other:: medical marijuana Preferred Language: [place] Communication Ability: Effective Production Potter Required: No Beliefs That Will Affect Care: None Current Living Situation: Family and Significant Other Current Living Situation Comment: boyfriend and son Feels Safe at Home: Yes Assistive Devices: None Review of Systems Review of Systems: All other findings negative except as noted in HPI. Physical Exam Constitutional: WD/WN, vitals as above Respiratory: normal respiratory effort, lungs clear to auscultation Cardiovascular: Rate/Rhythm: regular rate and regular rhythm Gastrointestinal (Abdomen): Inspection/Auscultation: normal bowel sounds Percussion/Palpation: + abdomen tender and abdomen soft; no guarding and abdomen not rigid Skin: no rashes, warm and dry Results & Data Vital Signs (Past 12 Hours) Vital Signs Temp Pulse Pulse Pulse Resp BP Pulse Ox 02/04/24 07:34 36.6 C 64 18 146/88 H 98 02/04/24 01:15 02/04/24 00:55 58 L 02/04/24 00:45 36.5 C 59 L 18 123/83 98 O2 Del Method 02/04/24 07:34 Room Air 02/04/24 01:15 Room Air 02/04/24 00:55 02/04/24 00:45 Room Air Laboratory Results 02/04/24 02/03/24 02/03/24 Range/Units 07:13 22:10 17:56 WBC 9.59 (4.8-10.8) K/ul RBC 4.61 (4.20-5.40) M/uL Hgb 13.7 (12.0-16.0) g/dl Hct 39.6 (37.0-47.0) % MCV 85.9 (80.0-100.0) fL MCH 29.7 (25.0-34.0) pg MCHC 34.6 (32.0-36.0) g/dL RDW Std Deviation 39.3 (36.4-46.3) fL RDW Coeff of Jensen 12.6 (11.5-14.5) % Plt Count 263 (130-400) K/uL MPV 9.9 (9.4-12.4) fL Immature Gran % (Auto) 0.2 % Neut % (Auto) 75.0 % Lymph % (Auto) 17.6 % [place] % (Auto) 6.0 % Eos % (Auto) 0.7 % Baso % (Auto) 0.5 % Neut # (Auto) 7.18 H (1.40-6.50) K/uL Lymph # (Auto) 1.69 (1.20-3.40) K/uL [place] # (Auto) 0.58 (0.11-0.59) K/uL Eos # (Auto) 0.07 (0.00-0.50) K/uL Baso # (Auto) 0.05 (0.00-0.20) K/uL Immature Gran # (Auto) 0.02 (0.01-0.20) K/uL Sodium (136-145) mmol/L Potassium (3.5-5.1) mmol/L Chloride (98-107) mmol/L Carbon Dioxide (21-32) mmol/L Anion Gap (3-11) BUN (6-23) mg/dl Creatinine (0.6-1.2) mg/dl Est Cr Clr Drug Dosing ml/min Est GFR ( Amer) ml/min Est GFR (Non-Af Amer) ml/min BUN/Creatinine Ratio (10-20) Glucose (70-99(Fasting)) mg/dl Lactate (0.4-2.0) mmol/L Calcium (8.6-10.3) mg/dl Magnesium (1.7-2.4) mg/dl Total Bilirubin (0.2-1.0) mg/dl AST (13-39) U/L ALT (7-52) U/L Alkaline Phosphatase (34-104) U/L Total Protein (6.0-8.3) gm/dl Albumin (3.4-5.0) gm/dl Globulin (2.5-4.0) gm/dl Albumin/Globulin Ratio (0.9-2) Lipase (11-82) U/L TSH (0.300-4.500) uIu/ml Urine Color Yellow Urine Appearance Clear (Clear) Urine pH 7.0 (4.5-7.5) Ur Specific [place] > 1.045 H (1.000-1.030) Urine Protein Trace H (Negative) Urine Glucose (UA) Negative (Negative) Urine Ketones Negative (Negative) Urine Blood Negative (Negative) Urine Nitrite Negative (Negative) Urine Bilirubin Negative (Negative) Urine Urobilinogen Negative (Negative) Ur Leukocyte Esterase Negative (Negative) Urine WBC (Auto) 0-5 (0-5) /hpf Urine RBC (Auto) 0-2 (0-2) /hpf U Hyaline Cast (Auto) 0-2 (0-2) /lpf U Epithel Cells (Auto) 0-2 (0-2) /hpf Urine Bacteria (Auto) None Seen (None Seen) Stl C. cayetanensis PCR Not Detected (NotDetected) Stool Rotavirus A PCR Not Detected (NotDetected) Stl Adenov F 40/41 PCR Not Detected (NotDetected) Stool Astrovirus (PCR) Not Detected (NotDetected) Stool Campylobacter PCR Not Detected (NotDetected) Stl C. diff Tox B Gene Negative Cdiff Gene (Neg) Stool Cryptosporidium PCR Not Detected (NotDetected) Stl E.coli Shiga Tox PCR Not Detected (NotDetected) Stl Enterotoxigenic E PCR Not Detected (NotDetected) Stool EPEC (PCR) Not Detected (NotDetected) Stool EAEC (PCR) Not Detected (NotDetected) Stl E. histolytica PCR Not Detected (NotDetected) Stool Giardia Lamblia PCR Not Detected (NotDetected) Stool Salmonella PCR Not Detected (NotDetected) Stool Sapovirus (PCR) Not Detected (NotDetected) Stl P. shigelloides PCR Not Detected (NotDetected) Stl Shigella/EIEC PCR Not Detected (NotDetected) St Y.enterocolitica PCR Not Detected (NotDetected) Stool Vibrio (PCR) Not Detected (NotDetected) Stl Vibrio cholerae PCR Not Detected (NotDetected) Stl Norovirus GI/GII PCR Not Detected (NotDetected) 02/03/24 Range/Units 16:03 WBC 11.93 H (4.8-10.8) K/ul RBC 4.89 (4.20-5.40) M/uL Hgb 14.9 (12.0-16.0) g/dl Hct 42.5 (37.0-47.0) % MCV 86.9 (80.0-100.0) fL MCH 30.5 (25.0-34.0) pg MCHC 35.1 (32.0-36.0) g/dL RDW Std Deviation 39.3 (36.4-46.3) fL RDW Coeff of Jensen 12.6 (11.5-14.5) % Plt Count 286 (130-400) K/uL MPV 9.8 (9.4-12.4) fL Immature Gran % (Auto) 0.3 % Neut % (Auto) 74.5 % Lymph % (Auto) 18.1 % [place] % (Auto) 6.0 % Eos % (Auto) 0.7 % Baso % (Auto) 0.4 % Neut # (Auto) 8.90 H (1.40-6.50) K/uL Lymph # (Auto) 2.16 (1.20-3.40) K/uL [place] # (Auto) 0.71 H (0.11-0.59) K/uL Eos # (Auto) 0.08 (0.00-0.50) K/uL Baso # (Auto) 0.05 (0.00-0.20) K/uL Immature Gran # (Auto) 0.03 (0.01-0.20) K/uL Sodium 138 (136-145) mmol/L Potassium 3.9 (3.5-5.1) mmol/L Chloride 105 (98-107) mmol/L Carbon Dioxide 25 (21-32) mmol/L Anion Gap 8 (3-11) BUN 3 L (6-23) mg/dl Creatinine 0.74 (0.6-1.2) mg/dl Est Cr Clr Drug Dosing 86.0 ml/min Est GFR ( Amer) 110.3 ml/min Est GFR (Non-Af Amer) 95.1 ml/min BUN/Creatinine Ratio 4.1 L (10-20) Glucose 90 (70-99(Fasting)) mg/dl Lactate 1.0 (0.4-2.0) mmol/L Calcium 9.9 (8.6-10.3) mg/dl Magnesium 2.1 (1.7-2.4) mg/dl Total Bilirubin 0.5 (0.2-1.0) mg/dl AST 22 (13-39) U/L ALT 15 (7-52) U/L Alkaline Phosphatase 118 H (34-104) U/L Total Protein 7.7 (6.0-8.3) gm/dl Albumin 4.7 (3.4-5.0) gm/dl Globulin 3.0 (2.5-4.0) gm/dl Albumin/Globulin Ratio 1.6 (0.9-2) Lipase 29 (11-82) U/L TSH 1.256 (0.300-4.500) uIu/ml Urine Color Urine Appearance (Clear) Urine pH (4.5-7.5) Ur Specific [place] (1.000-1.030) Urine Protein (Negative) Urine Glucose (UA) (Negative) Urine Ketones (Negative) Urine Blood (Negative) Urine Nitrite (Negative) Urine Bilirubin (Negative) Urine Urobilinogen (Negative) Ur Leukocyte Esterase (Negative) Urine WBC (Auto) (0-5) /hpf Urine RBC (Auto) (0-2) /hpf U Hyaline Cast (Auto) (0-2) /lpf U Epithel Cells (Auto) (0-2) /hpf Urine Bacteria (Auto) (None Seen) Stl C. cayetanensis PCR (NotDetected) Stool Rotavirus A PCR (NotDetected) Stl Adenov F 40/41 PCR (NotDetected) Stool Astrovirus (PCR) (NotDetected) Stool Campylobacter PCR (NotDetected) Stl C. diff Tox B Gene (Neg) Stool Cryptosporidium PCR (NotDetected) Stl E.coli Shiga Tox PCR (NotDetected) Stl Enterotoxigenic E PCR (NotDetected) Stool EPEC (PCR) (NotDetected) Stool EAEC (PCR) (NotDetected) Stl E. histolytica PCR (NotDetected) Stool Giardia Lamblia PCR (NotDetected) Stool Salmonella PCR (NotDetected) Stool Sapovirus (PCR) (NotDetected) Stl P. shigelloides PCR (NotDetected) Stl Shigella/EIEC PCR (NotDetected) St Y.enterocolitica PCR (NotDetected) Stool Vibrio (PCR) (NotDetected) Stl Vibrio cholerae PCR (NotDetected) Stl Norovirus GI/GII PCR (NotDetected) PG Care Time/CCT Total # of Minutes Spent Total Time Spent with Patient: Total time spent is greater than 50% in coordination of care (as documented) at patient's floor/unit and/or counseling patient: Coding Level of Care Code 70455 INT INP/OBS CARE MIN Diagnoses Diarrhea, unspecified type R19.7 Diarrhea type: unspecified type (1) Diarrhea Diarrhea type: unspecified type Qualified Code(s): R19.7 - Diarrhea, unspecified
[2024-02-04] MEDS: DEXTROMETHORPHAN HBR/BUPROPION 45-105MG TAB PO SCH ×2 (12:01→12:14)
[2024-02-04] MEDS: HYDROmorphone INJ 0.5 MG/0.5 ML SYR IV PRN (13:08)
--- NOTE | 2024-02-04 15:09 | Hospitalist Progress Note ---
Date of Service February 04, 2024 Assessment & Plan (1) Syncope: Plan: In summary, 48-year-old female with a history of recurrent C. difficile enterocolitis admitted with presyncope and worsening diarrhea and abdominal pain. Probable orthostasis given worsening diarrhea, recurrent C. difficile ongoing Dificid Rx Possible vasovagal mechanism given pain complaints. Echocardiogram reviewed. She has normal LV function and no other significant abnormalities hypothyroidism, euthyroid as of today's TSH anxiety/mood disorder, at baseline seizure disorder/ migraine, stable on regimen cognitive impairment as per records past tobacco abuse Abdominal pain Will give Bentyl as recommended by GI Give Dilaudid very sparingly for severe pain C. difficile enterocolitis Continue Dificid Rx Start Questran May need fecal transplant OBS Med/tele Trend labs. Watch for hypokalemia and hypomagnesemia IVF Check orthostatic vitals, TTE for syncopal workup GI consult re: worsening diarrhea, recurrent C. difficile ongoing Dificid Rx DVT prophylaxis. SCDs RE LGIB Full code Text document was generated using [employer] voice recognition software. It may contain grammatical or spelling errors. Kindly contact undersigned for clarification of any documentation item in question. Admission and Anticipated Discharge Date Admission Date: February 03, 2024 Subjective Patient seen at bedside Chart and data reviewed Patient still having a lot of abdominal cramping and pain along with diarrhea Appreciate GI consultation Review of Systems Review of Systems: Constitutional- no fever; no weight loss Eyes- no acute visual changes ENT- no sinus drainage; no pharyngitis Pulmonary- no cough, no wheezing, no shortness of breath Cardiac- no chest pain, no palpitations, no orthopnea, no dependent edema GI- + nausea, no vomiting, + diarrhea, no melena, no hematochezia - no dysuria, no hematuria Musculoskeletal- no arthralgias, no myalgias Derm- no rashes, no new skin lesions, no changing skin lesions Hematologic- no unusual bruising, no unusual bleeding Lymphatics- no adenopathy Endocrine- no polyuria or polydipsia; no heat or cold intolerance Neuro- no headaches, no focal neurologic symptoms Psych- no anxiety, no depression Physical Exam Physical Exam: General- adult female seen at bedside. She appears uncomfortable Head- atraumatic Eyes- PERRL, EOMI, anicteric ENT- oropharynx clear Neck- supple, no JVD, no adenopathy, no thyromegaly; carotids +2/2, no bruits appreciated Lungs- clear to auscultation and percussion Heart- regular rhythm; no murmur, no gallop, no rub appreciated Abdomen- normal bowel sounds, soft, diffuse nonspecific tenderness, no masses or hepatosplenomegaly Extremities- no pretibial edema, no calf tenderness; peripheral pulses intact Neuro- alert, oriented x 3; PERRL, EOMI; no focal findings Skin- warm & dry Results & Data Results & Data Vital Signs (Past 12 Hours) Vital Signs Temp Pulse Pulse Resp BP Pulse Ox O2 Del Method 02/04/24 11:37 36.9 C 76 18 130/87 98 Room Air 02/04/24 08:00 58 L 02/04/24 07:34 36.6 C 64 18 146/88 H 98 Room Air Diagnostic Findings Laboratory Results WBC 9.59 K/ul (4.8-10.8) 02/04/24 07:13 RBC 4.61 M/uL (4.20-5.40) 02/04/24 07:13 Hgb 13.7 g/dl (12.0-16.0) 02/04/24 07:13 Hct 39.6 % (37.0-47.0) 02/04/24 07:13 MCV 85.9 fL (80.0-100.0) 02/04/24 07:13 MCH 29.7 pg (25.0-34.0) 02/04/24 07:13 MCHC 34.6 g/dL (32.0-36.0) 02/04/24 07:13 RDW Std Deviation 39.3 fL (36.4-46.3) 02/04/24 07:13 RDW Coeff of Jensen 12.6 % (11.5-14.5) 02/04/24 07:13 Plt Count 263 K/uL (130-400) 02/04/24 07:13 MPV 9.9 fL (9.4-12.4) 02/04/24 07:13 Immature Gran % (Auto) 0.2 % 02/04/24 07:13 Neut % (Auto) 75.0 % 02/04/24 07:13 Lymph % (Auto) 17.6 % 02/04/24 07:13 [place] % (Auto) 6.0 % 02/04/24 07:13 Eos % (Auto) 0.7 % 02/04/24 07:13 Baso % (Auto) 0.5 % 02/04/24 07:13 Neut # (Auto) 7.18 K/uL (1.40-6.50) H 02/04/24 07:13 Lymph # (Auto) 1.69 K/uL (1.20-3.40) 02/04/24 07:13 [place] # (Auto) 0.58 K/uL (0.11-0.59) 02/04/24 07:13 Eos # (Auto) 0.07 K/uL (0.00-0.50) 02/04/24 07:13 Baso # (Auto) 0.05 K/uL (0.00-0.20) 02/04/24 07:13 Immature Gran # (Auto) 0.02 K/uL (0.01-0.20) 02/04/24 07:13 Sodium 138 mmol/L (136-145) 02/03/24 16:03 Potassium 3.9 mmol/L (3.5-5.1) 02/03/24 16:03 Chloride 105 mmol/L (98-107) 02/03/24 16:03 Carbon Dioxide 25 mmol/L (21-32) 02/03/24 16:03 Anion Gap 8 (3-11) 02/03/24 16:03 BUN 3 mg/dl (6-23) L 02/03/24 16:03 Creatinine 0.74 mg/dl (0.6-1.2) 02/03/24 16:03 Est Cr Clr Drug Dosing 86.0 ml/min 02/03/24 16:03 Est GFR ( Amer) 110.3 ml/min 02/03/24 16:03 Est GFR (Non-Af Amer) 95.1 ml/min 02/03/24 16:03 BUN/Creatinine Ratio 4.1 (10-20) L 02/03/24 16:03 Glucose 90 mg/dl (70-99(Fasting)) 02/03/24 16:03 Lactate 1.0 mmol/L (0.4-2.0) 02/03/24 16:03 Calcium 9.9 mg/dl (8.6-10.3) 02/03/24 16:03 Magnesium 2.1 mg/dl (1.7-2.4) 02/03/24 16:03 Total Bilirubin 0.5 mg/dl (0.2-1.0) 02/03/24 16:03 AST 22 U/L (13-39) 02/03/24 16:03 ALT 15 U/L (7-52) 02/03/24 16:03 Alkaline Phosphatase 118 U/L (34-104) H 02/03/24 16:03 Total Protein 7.7 gm/dl (6.0-8.3) 02/03/24 16:03 Albumin 4.7 gm/dl (3.4-5.0) 02/03/24 16:03 Globulin 3.0 gm/dl (2.5-4.0) 02/03/24 16:03 Albumin/Globulin Ratio 1.6 (0.9-2) 02/03/24 16:03 Lipase 29 U/L (11-82) 02/03/24 16:03 TSH 1.256 uIu/ml (0.300-4.500) 02/03/24 16:03 Urine Color Yellow 02/03/24 22:10 Urine Appearance Clear (Clear) 02/03/24 22:10 Urine pH 7.0 (4.5-7.5) 02/03/24 22:10 Ur Specific [place] > 1.045 (1.000-1.030) H 02/03/24 22:10 Urine Protein Trace (Negative) H 02/03/24 22:10 Urine Glucose (UA) Negative (Negative) 02/03/24 22:10 Urine Ketones Negative (Negative) 02/03/24 22:10 Urine Blood Negative (Negative) 02/03/24 22:10 Urine Nitrite Negative (Negative) 02/03/24 22:10 Urine Bilirubin Negative (Negative) 02/03/24 22:10 Urine Urobilinogen Negative (Negative) 02/03/24 22:10 Ur Leukocyte Esterase Negative (Negative) 02/03/24 22:10 Urine WBC (Auto) 0-5 /hpf (0-5) 02/03/24 22:10 Urine RBC (Auto) 0-2 /hpf (0-2) 02/03/24 22:10 U Hyaline Cast (Auto) 0-2 /lpf (0-2) 02/03/24 22:10 U Epithel Cells (Auto) 0-2 /hpf (0-2) 02/03/24 22:10 Urine Bacteria (Auto) None Seen (None Seen) 02/03/24 22:10 Stl C. cayetanensis PCR Not Detected (NotDetected) 02/03/24 17:56 Stool Rotavirus A PCR Not Detected (NotDetected) 02/03/24 17:56 Stl Adenov F 40/41 PCR Not Detected (NotDetected) 02/03/24 17:56 Stool Astrovirus (PCR) Not Detected (NotDetected) 02/03/24 17:56 Stool Campylobacter PCR Not Detected (NotDetected) 02/03/24 17:56 Stl C. diff Tox B Gene Negative Cdiff Gene (Neg) 02/03/24 17:56 Stool Cryptosporidium PCR Not Detected (NotDetected) 02/03/24 17:56 Stl E.coli Shiga Tox PCR Not Detected (NotDetected) 02/03/24 17:56 Stl Enterotoxigenic E PCR Not Detected (NotDetected) 02/03/24 17:56 Stool EPEC (PCR) Not Detected (NotDetected) 02/03/24 17:56 Stool EAEC (PCR) Not Detected (NotDetected) 02/03/24 17:56 Stl E. histolytica PCR Not Detected (NotDetected) 02/03/24 17:56 Stool Giardia Lamblia PCR Not Detected (NotDetected) 02/03/24 17:56 Stool Salmonella PCR Not Detected (NotDetected) 02/03/24 17:56 Stool Sapovirus (PCR) Not Detected (NotDetected) 02/03/24 17:56 Stl P. shigelloides PCR Not Detected (NotDetected) 02/03/24 17:56 Stl Shigella/EIEC PCR Not Detected (NotDetected) 02/03/24 17:56 St Y.enterocolitica PCR Not Detected (NotDetected) 02/03/24 17:56 Stool Vibrio (PCR) Not Detected (NotDetected) 02/03/24 17:56 Stl Vibrio cholerae PCR Not Detected (NotDetected) 02/03/24 17:56 Stl Norovirus GI/GII PCR Not Detected (NotDetected) 02/03/24 17:56 Impressions Abdomen/Pelvis CT 02/03/24 19:13 Exam(s): CT ABDOMEN + PELVIS With Contrast IV Amt: 93 ml optiray 320 EXAM: CT Abdomen and Pelvis With Intravenous Contrast CLINICAL HISTORY: Reason for exam: diffuse abd pain, diarrhea x4 months. TECHNIQUE: Axial computed tomography images of the abdomen and pelvis with intravenous contrast. CTDI is 13.91 mGy and DLP is 658.49 mGy-cm. Automated exposure control was utilized for the study. A dose lowering technique was utilized adhering to the principles of ALARA. CONTRAST: Patient received 93 ml optiray 320 of IV contrast COMPARISON: CT abdomen/pelvis on 11/13/2023 FINDINGS: Lung bases: Unremarkable. No mass. No consolidation. ABDOMEN: Liver: Unremarkable. No mass. Gallbladder and bile ducts: Contracted gallbladder. No calcified stones. No ductal dilation. Pancreas: Unremarkable. No mass. No ductal dilation. Spleen: Small splenule spine. Adrenals: Unremarkable. No mass. Kidneys and ureters: Unremarkable. No hydronephrosis or obstructing ureteral stone. Stomach and bowel: Evaluation of the stomach is limited by underdistention. Fluid in the colon is suggestive of diarrheal state. No mucosal thickening. PELVIS: Appendix: Normal appendix. Bladder: Mild prominence of the bladder wall is nonspecific. Please correlate with urinalysis if concerned for cystitis. Reproductive: Unremarkable as visualized. ABDOMEN and PELVIS: Intraperitoneal space: Unremarkable. No free air. No significant fluid collection. Bones/joints: See above. Soft tissues: Unremarkable. Vasculature: Phleboliths in the pelvis. No abdominal aortic aneurysm. Lymph nodes: Unremarkable. No enlarged lymph nodes. IMPRESSION: 1. Mild prominence of the bladder wall is nonspecific. Please correlate with urinalysis if concerned for cystitis. 2. Fluid in the colon is suggestive of diarrheal state. Electronically signed by: Alex Turk M.D. 02/03/24 20:36 PM Echo shows normal LV function
--- NOTE | 2024-02-04 15:25 | Electrocardiogram Report ---
Test Reason : Blood Pressure : */* mmHG Vent. Rate : 63 BPM Atrial Rate : 63 BPM P-R Int : 132 ms QRS Dur : 90 ms QT Int : 444 ms P-R-T Axes : 66 60 57 degrees QTcB Int : 454 ms Normal sinus rhythm Normal ECG When compared with ECG of 02-Nov-2023 02:04, Sinus rhythm has replaced Junctional rhythm T wave inversion no longer evident in Lateral leads QT has shortened Confirmed by Yong Yu ([id number]) on 02/04/2024 3:25:16 PM Referred By: Confirmed By: Yong Yu
--- NOTE | 2024-02-04 19:48 | Communication Note ---
Date of Service: February 04, 2024 Patient wants to sign out AGAINST MEDICAL ADVICE as per RN because she wants to smoke marijuana. Patient not willing to wait for provider currently doing admissions at the ER to discuss concerns. Patient signed AMA paper as per RN.
[2024-02-04 20:13] VITALS: BP 137/87; PULSE 75; RESP 16; TEMP 98.2; O2SAT 96
--- NOTE | 2024-02-04 20:15 | Discharge Summary ---
Date of Service February 04, 2024 Admission HPI Per Admitting Provider History obtained from patient and records. Medical history significant for recurrent C. difficile currently on Dificid Rx, hypothyroidism, anxiety/mood disorder, seizure disorder, migraine, cognitive impairment as per records, past tobacco abuse. Last confinement October 2023 for abdominal pain and diarrhea. Stool C. difficile gene positive, C. difficile toxin negative. Patient discharged on oral vancomycin course. Patient seen at PCPs office patient seen at PCPs office last week for achy abdominal pain associated with diarrhea symptoms with occasional bleeding. No fever, no chills. Outpatient stool C. difficile test was positive. Patient started on Dificid course. Worsening pain and diarrhea despite compliance with the medications. Unwitnessed syncopal event at home today from weakness. No headache, no chest pain, no SOB, no tongue biting or incontinence. Patient consulted ER for worsening symptoms. Medical History as above Surgical History : Breast lesion excision, section, dental surgery Family History : Alcoholism, mood disorder, DM, heart disease, migraine, ovarian cancer, stroke Personal/Social history : Past tobacco abuse, no EtOH intake, applying for disability Principal Diagnosis abdominal pain Discharge Data Allergies Allergy/AdvReac Type Severity Reaction Status Date / Time metoclopramide [From Reglan] AdvReac Intermediate FELT LIKE Verified 02/03/24 21:25 "SKIN CRAWLING" Consultations 02/03/24 22:48 ED Decision to Admit Stat 02/04/24 01:06 Consult Gastroenterology Routine Ordered Studies 02/03/24 19:13 CT abd pelvis IV con only Stat Hospital Course (1) Syncope: In summary, 48-year-old female with a history of recurrent C. difficile enterocolitis admitted with presyncope and worsening diarrhea and abdominal pain. Probable orthostasis given worsening diarrhea, recurrent C. difficile ongoing Dificid Rx Possible vasovagal mechanism given pain complaints. Echocardiogram reviewed. She has normal LV function and no other significant abnormalities hypothyroidism, euthyroid as of today's TSH anxiety/mood disorder, at baseline seizure disorder/ migraine, stable on regimen cognitive impairment as per records past tobacco abuse Abdominal pain Will give Bentyl as recommended by GI Give Dilaudid very sparingly for severe pain C. difficile enterocolitis Continue Dificid Rx Start Questran May need fecal transplant (Preceding documentation as per admitting provider.) 02/04, 7:30 PM Patient wants to sign out AGAINST MEDICAL ADVICE as per RN because she wants to smoke marijuana. Patient not willing to wait for provider currently doing admissions at the ER to discuss concerns. Patient signed AMA paper as per RN. Total time to prepare this discharge summary was less than 10 minutes. Text document was generated using [employer] voice recognition software. It may contain grammatical or spelling errors. Kindly contact undersigned for clarification of any documentation item in question. Total Time Total Time Spent Total Time Spent (In Minutes): 10 Discharge Plan Discharge Items Patient Disposition: Against Medical Advice Reason For Visit: SYNCOPE Call non-emergency contact if: you have any medication questions Follow-up/Referrals: Dayanara Green MD [Primary Care Provider] - Stand-Alone Forms: [facility], Smoking Cessation Medications and DC Order Prescriptions: No Action sumatriptan succinate 6 mg/0.5 mL pen injector 6 mg SUBCUT UD PRN (Reason: Migraine Headache) Ajovy Syringe 225 mg/1.5 mL syringe 225 mg SUBCUT UD Rx Instructions: LAST HAD 11/01/23 - INJECTS EVERY 3 MONTHS zonisamide 50 mg capsule 50 mg PO QAM Rx Instructions: 100mg in the hs 11pm 50 mg in the am 10am ondansetron HCl 4 mg tablet 4 mg PO Q6H PRN (Reason: Nausea) Dificid 200 mg tablet 200 mg PO Q OTHER DAY zonisamide 100 mg Capsule 100 mg PO HS meclizine 25 mg Tablet 25 mg PO TID PRN (Reason: Dizziness) levothyroxine 50 mcg tablet 50 mcg PO DAILYBB fluticasone propionate 50 mcg/actuation Dunn,Suspension 2 spray INTRANASAL DAILY PRN (Reason: ALLERGIES) Rx Instructions: administer into each nostril Belsomra 10 mg tablet 10 mg PO DAILY Caplyta 42 mg capsule 42 mg PO HS Auvelity 45-105 mg tablet,IR,delayed rel,biphasic 1 tab PO BID Discharge Orders: Left Against Medical Advice (Routine); Ordered 02/04/24 Ordered By: Kenny Carmichael Admission Data Admit Date/Time: 02/03/24 23:40 Attending Provider: Javon Pace Admit Provider: Kenny Carmichael Primary Care Provider: Dayanara Green Other Providers: Kenny Carmichael; Chsae Mary
[2024-02-04] MEDS ORDERED: DEXTROMETHORPHAN HBR/BUPROPION 45-105MG TAB PO SCH (21:00)
[2024-02-04] MEDS ORDERED: LUMATEPERONE TOSYLATE 42 MG PO SCH (21:00)
[2024-02-04] MEDS ORDERED: DICYCLOMINE HCL 10 MG CAP PO SCH (21:00)
[2024-02-04] MEDS ORDERED: SUVOREXANT 10 MG PO SCH ×2 (21:00)
[2024-02-04] MEDS ORDERED: CHOLESTYRAMINE LIGHT 4 GM PKT PO SCH (22:00)
[2024-02-04] MEDS ORDERED: ZONISAMIDE 100 MG CAPSULE PO SCH (23:00)
[2024-02-05] MEDS ORDERED: FIDAXOMICIN 200 MG TAB PO SCH (09:00)
== END 2024-02-04 19:50 | disposition left against medical advice (07) ==
LOC: 2W 15:02 → ED 15:02 → 2W 02-04 01:15

== ENCOUNTER 2024-06-15 01:07 | Observation (INO) ==
--- OUTSIDE RECORDS SUMMARY | 2024-06-15 01:12 | External Medical Summary | Summary of Care ---
Author Name Unknown Organization [facility] Address [address] [place] [address] Phone [phone] Care Team Providers Care Chemical Equipment Sales Engineer Name Role Phone Dayanara Green MD Primary Care Provider [phone] Reason for Visit * Reason Onset Date Comments Emergency Department Follow-Up C olitis, HTN Immunizations 05/29/2024 Shingrix Encounter Details Date Type Department Care Team (Late st Contact Info) Description 05/29/2024 11:40 AM EST Office Visit General Internal Medicine [facility] [address] [place] [address] Dayanara Green MD [address] [place] [address] Colitis*; Temporary high blood pressure; Cervical radiculopathy; Acquired hypothyroidism; Intractable migraine with aura without status migrainosus; Need for vaccination for zoster; Seizure disorder, simple partial, 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 18.2 mL 6 10/16/19 21 Active Ondansetron HCl 4 MG Oral TabletIndications :Nausea and vomiting, intractability of vomiting not specified, unspecified vomiting type Take by mouth 1 Tablet every 6 hours as needed for Nausea. 30 Tablet 2 07/18/19 22 Active Additional Information Patient not taking.Reported on 06/02/2024 Vitamin D-3 25 MCG (1000 UT) Oral Capsule Take 1 Capsule by mouth in the morning. Active Belsomra 5 MG Oral Tablet at bedtime. 12/24/19 23 Active Meclizine HCl 25 MG Oral Tablet (Antivert) TAKE 1 TABLET BY MOUTH THREE TIMES DAILY IF NEEDED for dizziness (morning, noon, evening) 10 Tablet 1 05/03/20 23 Active Additional Information Patient not taking.Reported on 06/02/2024 Auvelity 45-105 MG Oral Tablet Extended Release (Dextromethorphan -buPROPion ER) Take 1 Tablet by mouth in the morning and 1 Tablet before bedtime. Active Caplyta 42 MG Oral Capsule (Lumateperone Tosylate) Take 1 Capsule by mouth at bedtime. Active Sucralfate 1 GM/10ML Oral Suspension (Carafate) 4 times a day. 11/16/19 24 Active oxyCODONE-Acetami nophen 5-325 MG Oral Tablet (Percocet) Take 1 Tablet by mouth every 6 hours as needed. Using 1/2 tab 11/16/19 24 Active Zonisamide 50 MG Oral Capsule (Zonegran)Indicat ions:Chronic migraine without aura without status migrainosus, not intractable TAKE 1 CAPSULE IN MORNING AND 2 CAPSULES AT NIGHT 90 Capsule 5 12/10/19 24 Active Probiotic & Acidophilus Ex St Oral CapsuleIndication s:Diarrhea, unspecified type Take 1 Capsule by mouth in the morning and 1 Capsule at noon and 1 Capsule in the evening. Take with meals. 60 Capsule 1 01/27/20 24 Active Additional Information Patient not taking.Reported on 06/02/2024 Aimovig 70 MG/ML Subcutaneous Solution Auto-injector (Erenumab-aooe)In dications:Chronic migraine without aura without status migrainosus, not intractable Inject 70mg (1 pen) monthly for migraine prevention. 1 mL 5 4 3:06 PM EST 02/02/20 24 Active Levothyroxine Sodium 50 MCG Oral Tablet (Levoxyl)Indicati ons:Hypothyroidis m, unspecified type TAKE 1 TABLET BY MOUTH DAILY FIRST THING IN THE MORNING AT LEAST 30 MINUTES PRIOR TO BREAKFAST OR OTHER MEDICATIONS 90 Tablet 2 03/10/20 24 Active Colestipol HCl 1 GM Oral Tablet (Colestid) Take 1 Tablet by mouth in the morning and 1 Tablet before bedtime. 60 Tablet 3 03/20/20 24 Active clonazePAM 0.5 MG Oral Tablet (KlonoPIN) Take 1 Tablet by mouth 2 times a day as needed. 04/10/20 24 Active Dicyclomine HCl 10 MG Oral Capsule (Bentyl)Indicatio ns:Pain of upper abdomen Take 1 Capsule by mouth 3 times a day as needed for Pain or Gas. 100 Capsule 04/13/20 24 Active Additional Information Patient not taking.Reported on 06/02/2024 SUMAtriptan Succinate 6 MG/0.5ML Subcutaneous Solution Auto-injector (Imitrex)Indicati ons:Chronic migraine without aura without status migrainosus, not intractable INJECT 1 SYRINGE SUBCUTANEOUSLY AT ONSET OF MIGRAINE HEADACHE. MAY REPEAT DOSE IN 2 HRS IF NEEDED . DO NOT EXCEED 2 DOSES PER 24 HOURS 6 mL 3 05/02/20 24 Active Naproxen 500 MG Oral Tablet (Naprosyn) Take 1 Tablet by mouth 2 times a day as needed for Pain. With food 40 Tablet 05/24/20 24 Active predniSONE 10 MG Oral Tablet (Deltasone) Taper as directed 05/19/20 24 Active predniSONE 5 MG Oral Tablet (Deltasone) Taper as directed 05/23/20 24 Active Zoster Vac Recomb Adjuvanted 50 MCG/0.5ML Intramuscular Suspension Reconstituted (Shingrix)Indicat ions:Need for vaccination for zoster Inject 0.5 mL into a large muscle now and repeat dose in 60 to 180 days 1 Each 05/29/20 24 Active Mesalamine 800 MG Oral Tablet Delayed Release (Asacol HD) Take 1 Tablet by mouth in the morning and 1 Tablet at noon and 1 Tablet before bedtime. 90 Tablet 3 04/11/20 24 024 Disconti nued(For mulary/C ost) Budesonide 3 MG Oral Capsule Delayed Release Particles (Entocort EC) Taper: 3 capsules daily for 2 weeks, 2 capsule daily for 2 weeks, 1 capsule daily for 2 weeks. 8490 Capsule 04/14/20 24 024 Disconti nued(End of Procedur e) Hospital, Clinic, or Other Facility Administered Medication [...] as of this encounter (statuses as of 06/12/2024) Active Problems Problem Noted Date Diagnosed Date [...] as of this encounter (statuses as of 06/12/2024) Resolved Problems Problem Noted Date Diagnosed Date Resolved Date COVID-19 virus infection 04/21/202301/2024 Alzheimer's disease, unspecified (CODE) 03/24/2023 09/06/2023 Food insecurity 04/28/2021 06/04/2022 Overview: Per [facility] Protocol Bipolar 2 disorder 06/01/2018 Intractable migraine with au ra without status migrainosus 06/01/2018 11/27/2023 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 09/16/2015 11/27/2023 documented as of this encounter (statuses as of 06/12/2024) Immunizations Name Administration Dates Next Due COVID-19 [...] Influenza, Recombin ant, RIV4, PF, (Flublock) 03/31/2019 Seasonal Influenza, Trivalen t, (IIV3), PF, (Fluzone) 03/02/2024 TDAP (age 10 and older)(Boostrix) 08/15/2022 TDAP, Age 7 and older, IM (Adacel) 11/03/2011 Zoster Vaccine Recombinant (Shingrix) (Deferred: Patient Refused - Patient left before receiving vaccine) documented as of this encounter Social History [...] No 11/19/2023 Does the household have a [facility] source [facility] income? (Household - for ages [...] ages 0-17 years) Not on file 11/19/2023 Comments No Sex and Gender Information Value Date Recorded Sex Assigned at Female 09/20/2018 6:15 PM EDT Legal Sex Female 5:41 AM EST Gender Identity Female 09/20/2018 6:15 PM EDT Sexual Orientation Bisexual 09/20/2018 6 :15 PM EDT documented as of this encounter Last Filed Vital Signs Vital Sign Reading Time Taken Comments Blood Pressure 162/94 05/29/2024 11:40 AM EST Pulse 92 05/29/2024 11:40 AM EST Temperature 36.9 C (98.4 F) 05/29/2024 1 1:40 AM EST Respiratory Rate 12 05/29/2024 11:4 0 AM EST Oxygen Saturation - - Inhaled Oxygen Concentration - - Weight 69.3 kg (152 lb 12.8 oz) 12/09/2 024 11:40 AM EST Height - - Body Mass Index 27.95 03/27/2024 1:38 PM EDT documented in this encounter Patient Instructions * Patient Instructions* Buck Pathak RN - 05/29/2024 11:49 AM EST ~~PATIENT INSTRUCTIONS FOR SHINGRIX VACCINE~~ Possible side effects of Shingrix vaccine, (shingles), are usually mild and can include: 1. Soreness or redness at injection site 2. Low grade fever 3. Body aches You may use a fever / pain reducing medication as needed for these symptoms. LET YOUR DOCTOR KNOW IMMEDIATELY IF YOU HAVE DIFFICULTY BREATHING OR SWALLOWING, EXPERIENCE ITCHINGOF FEET OR HANDS, HAVE SWELLING OF EYES, FACE OR INSIDE OF NOSE. documented in this encounter Progress Notes * Dayanara Green MD - 05/29/2024 11:55 AM EST SUBJECTIVE: Rosey Hua is a 49 year old female. Chief Complaint Patient presents with Emergency Department Follow-Up Colitis, HTN Immunizations Shingrix HPI: 49 year oldYOfemale with PMH significant for seizure disorder, migraine, hypothyroidism, cervical radiculopathy, depression and recurrent C.diff presents here for ER follow up. Pt went to ER 10 days ago with worsening ongoing diarrhea and abd pain and found to have -ve c.diffand labs stable . [facility] was consulted and started on prednisone and naproxyn which has been helping for the 1st time . Since discharge feeling better . Hospital records reviewed and updated. New issue now -seen by [facility] as well and planned to repeat colonoscopy - suspected to have colitis -sinus congestion and headache - 2 days . No cough, f/c, bodyaches Patient Active Problem List Diagnosis Intractable migraine with aura without status migrainosus Seizure disorder, simple partial, 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) Recurrent major depression resistant to treatment (HCC) Cervical radiculopathy Cognitive impairment Hyperreflexia Tear film insufficiency Xerophthalmia Hypothyroidism Rhinitis, nonallergic History of 2019 novel coronavirus disease (COVID-19) History of Clostridioides difficile colitis Overweight (BMI 25.0-29.9) Current Outpatient Medications Medication Sig Dispense Refill Ondansetron HCl 4 MG Oral Tablet Take by mouth 1 Tablet every 6 hours as needed for Nausea. 30 Tablet 2 Vitamin D-3 25 MCG (1000 UT) Oral Capsule Take 1 Capsule by mouth in the morning. Belsomra 5 MG Oral Tablet at bedtime. Meclizine HCl 25 MG Oral Tablet (Antivert) TAKE 1 TABLET BY MOUTH THREE TIMES DAILY IF NEEDED for dizziness (morning, noon, evening) 10 Tablet 1 Auvelity 45-105 MG Oral Tablet Extended Release (Dextromethorphan-buPROPion ER) Take 1 Tablet by mouth in the morning and 1 Tablet before bedtime. Caplyta 42 MG Oral Capsule (Lumateperone Tosylate) Take 1 Capsule by mouth at bedtime. Zonisamide 50 MG Oral Capsule (Zonegran) TAKE 1 CAPSULE IN MORNING AND 2 CAPSULES AT NIGHT 90 Capsule 5 Aimovig 70 MG/ML Subcutaneous Solution Auto-injector (Erenumab-aooe) Inject 70mg (1 pen) monthly for migraine prevention. 1 mL 5 Levothyroxine Sodium 50 MCG Oral Tablet (Levoxyl) TAKE 1 TABLET BY MOUTH DAILY FIRST THING IN THE MORNING AT LEAST 30 MINUTES PRIOR TO BREAKFAST OR OTHER MEDICATIONS 90 Tablet 2 Colestipol HCl 1 GM Oral Tablet (Colestid) Take 1 Tablet by mouth in the morning and 1 Tablet before bedtime. 60 Tablet 3 clonazePAM 0.5 MG Oral Tablet (KlonoPIN) Take 1 Tablet by mouth 2 times a day as needed. SUMAtriptan Succinate 6 MG/0.5ML Subcutaneous Solution Auto-injector (Imitrex) INJECT 1 SYRINGE SUBCUTANEOUSLY AT ONSET OF MIGRAINE HEADACHE. MAY REPEAT DOSE IN 2 HRS IF NEEDED . DO NOT EXCEED 2 DOSES PER 24 HOURS 6 mL 3 Naproxen 500 MG Oral Tablet (Naprosyn) Take 1 Tablet by mouth 2 times a day as needed for Pain. With food 40 Tablet 0 predniSONE 10 MG Oral Tablet (Deltasone) Taper as directed predniSONE 5 MG Oral Tablet (Deltasone) Taper as directed Zoster Vac Recomb Adjuvanted 50 MCG/0.5ML Intramuscular Suspension Reconstituted (Shingrix) Inject 0.5 mL into a large muscle now and repeat dose in 60 to 180 days 1 Each 0 Fluticasone Propionate 50 MCG/ACT Nasal Suspension (Flonase) Administer 2 Sprays into each nostril in the morning and 2 Sprays before bedtime. (Patient not taking: Reported on 05/29/2024) 18.2 mL 6 Sucralfate 1 GM/10ML Oral Suspension (Carafate) 4 times a day. (Patient not taking: Reported on 05/29/2024) oxyCODONE-Acetaminophen 5-325 MG Oral Tablet (Percocet) Take 1 Tablet by mouth every 6 hours as needed. Using 1/2 tab (Patient not taking: Reported on 05/29/2024) Probiotic & Acidophilus Ex St Oral Capsule Take 1 Capsule by mouth in the morning and 1 Capsuleat noon and 1 Capsule in the evening. Take with meals. (Patient not taking: Reported on 05/29/2024) 60 Capsule 1 Mesalamine 800 MG Oral Tablet Delayed Release (Asacol HD) Take 1 Tablet by mouth in the morning and1 Tablet at noon and 1 Tablet before bedtime. (Patient not taking: Reported on 05/29/2024) 90 Tablet3 Dicyclomine HCl 10 MG Oral Capsule (Bentyl) Take 1 Capsule by mouth 3 times a day as needed for Pain or Gas. (Patient not taking: Reported on 05/29/2024) 100 Capsule 0 Budesonide 3 MG Oral Capsule Delayed Release Particles (Entocort EC) Taper: 3 capsules daily for 2 weeks, 2 capsule daily for 2 weeks, 1 capsule daily for 2 weeks. (Patient not taking: Reported on 05/29/2024) 8490 Capsule 0 Current Facility-Administered Medications Medication Dose Route Frequency Provider Last Rate Last Admin Albuterol Sulfate (Proventil) (2.5 MG/3ML) 0.083% inhalation solution 2.5 mg 2.5 mg Nebulizer PRN Javon Garcia III, MD 2.5 mg at 10/07/23 0951 Albuterol Sulfate (Proventil) (5 MG/ML) 0.5% *conc* inhalation solution 2.5 mg 2.5 mg Nebulizer Javon Cesar III, MD The patient's medication list was reviewed and updated as needed. Past Medical History: Diagnosis Date Bipolar 2 disorder (HCC) Cervical radiculopathy 07/28/2018 Cognitive impairment 05/31/2013 History of 2019 novel coronavirus disease (COVID-19) 11/27/2023 History of Clostridioides difficile colitis 11/27/2023 Hyperreflexia 04/01/2018 Hypothyroidism Intractable migraine with aura without status migrainosus 06/01/2018 Migraine Recurrent major depression resistant to treatment ([facility]) 07/09/2020 Seizure disorder, simple partial, without intractable epilepsy ([facility]) 01/11/2020 Tear film insufficiency 04/10/2013 Vertiginous syndromes and other disorders of vestibular system 09/16/2015 Social History Socioeconomic History Marital status: Tobacco Use Smoking status: Former Current packs/day: 0.00 Average packs/day: 1 pack/day for 20.1 years (20.1 ttl pk-yrs) Types: Cigarettes Start date: 08/19/1998 Quit date: 09/16/2018 Years since quittin.7 Smokeless tobacco: Never Tobacco comments: No passive smoke exposures Vaping Use Vaping status: Never Used Substance and Sexual Activity Alcohol use: Not Currently Drug use: Not Currently Types: Marijuana Sexual activity: Yes Partners: Male Social Needs Financial Resource Strain: Low Risk (11/19/2023) Financial Resource Strain Do you have any trouble paying for your medications, or do you think you might in the future? (Adult - for ages 18 years and over): No Food Insecurity: No Food Insecurity (11/19/2023) Food Insecurity Do you need food for this week? (Adult - for ages 18 years and over): No Transportation Needs: No Transportation Needs (11/19/2023) Transportation Needs Do you have trouble getting a ride to medical visits or work? (Adult - for ages 18 years and over):Never True Social Connections: Socially Integrated (11/19/2023) Social Connections How often do you feel lonely or isolated from those around you? (Adult - for ages 18 years and over): Never Housing Stability: Low Risk (11/19/2023) Housing Stability Do you currently live in a snf or have no steady place to sleep at night? (Adult - for ages 18 years and over): No Do you think you are at risk of becoming homeless? (Adult - for ages 18 years and over): No Review of patient's allergies indicates: Allergen Reactions Reglan [Metoclopramide Hcl] Pt felt like she crawling out of skin Family History Problem Relation Name Age of [...] Tree nut allergy Ovarian cancer Aunt (Maternal) Breast Cancer No significant family history Family Status Relation Status Mo Alive Fa Alive Sis Alive MGMA MGFA PGMA PGFA Son Alive MAUNT Alive No history (Not Specified) REVIEW OF SYSTEMS: All 10 systems reviewed and negative except mentioned in HPI OBJECTIVE: BP 162/94 (BP Site: Left Arm, BP Position: Sitting, BP Cuff Size: Large) | Pulse 92 | Temp 98.4 F(36.9 C) (Tympanic) | Resp 12 | Wt 152 lb 12.8 oz (69.3 kg) | LMP (LMP Unknown) | BMI 27.95 kg/m | BSA 1.74 m PHYSICAL EXAM: Head: Normocephalic, No masses, lesions, tenderness or abnormalities Ears: External ears normal, Canals clear, TM's Normal Nose: no purulent discharge, mucosal edema, mucosal erythema Oropharynx: no exudate, lips, buccal mucosa, and tongue normal, mucous membranes are moist, and moderate erythema Neck: supple, no adenopathy, no bruits, thyroid normal size, non-tender, without nodularity Heart: regular rate & rhythm, no murmur, and no gallops Lungs: chest symmetric with normal AP diameter, no chest deformities noted, no chest wall tenderness, lungs clear to auscultation Abdomen: abdomen soft, non-tender, normal bowel sounds, and no masses or organomegaly Extremities: less than 2 second capillary refill, no joint deformities, effusion, or inflammation ASSESSMENT AND PLAN Colitis (Primary) - COMPREHENSIVE METABOLIC PANEL; Future; Expected date: 08/27/2024 - CBC; Future; Expected date: 08/27/2024 Cont prednisone taper as given Keep GI appointment Temporary high blood pressure Likely from prednisone and naproxyn If pain better suggest to take tylenol if needed and keep naproxyn only for severe pain Cervical radiculopathy Stable Acquired hypothyroidism Stable Continue current treatment as directed Sinusitis : Likely allergy or viral Restart floanse Intractable migraine with aura without status migrainosus Need for vaccination for zoster - ZOSTER VACCINE RECOMB, 2 DOSE, IM (SHINGRIX) - ZOSTER VACCINE RECOMB, 2 DOSE, IM (SHINGRIX); Future; Expected date: 07/30/2024 - Zoster Vac Recomb Adjuvanted 50 MCG/0.5ML Intramuscular Suspension Reconstituted (Shingrix); Inject 0.5 mL into a large muscle now and repeat dose in 60 to 180 days Seizure disorder, simple partial, 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 | For: recheck A total of at least 35 minutes were spent in evaluating this patient, in face to face communicationwith the patient and in coordinating care of this patient. Dayanara Green MD 11:55 AM 05/29/2024 documented in this encounter Nursing Notes * Buck Pathak RN - 05/29/2024 11:45 AM EST Chief Complaint Patient presents with Emergency Department Follow-Up Colitis, HTN documented in this encounter Plan of Treatment Upcoming Encounters Date Type Department Care Team (Late st Contact Info) Description 07/03/2024 2:30 PM EST [facility] [place] [address] [place] [id number] [facility] [address] [place] [address] 07/03/2024 3:00 PM EST Office Visit [facility] [place] [address] [place] [address] Ravin Kam PA-C [address] [place] [address] 09/07/2024 1:00 PM EDT Office Visit General Internal Medicine [facility] [address] [facility] [place] [address] Dayanara Green MD [address] [facility] [place] [address] 12/12/2024 11:20 AM EDT Office Visit Neurology [facility] [address] [facility] [place] [address] Germ[place], [address] [facility] [place] [address] Scheduled Orders Name Type Priority Associated Diagnoses Orde r Schedule LIPID PANEL WITH DIRECT LDL IF TG IS HIGH Lab Routine Lipid screening Expected: 08/27/2024, Expires: 05/29/2025 COMPREHENSIVE METABOLIC PANEL Lab Routine Colitis Expected: 08/27/2024, Expires: 05/29/2025 CBC Lab Routine Colitis Expected: 08/27/2024, Expires: 05/29/2025 Health Maintenance Due Date Last Done Comments HIV Screening 1989 Hepatitis B Vaccine (1 of 3 - 19+ 3-dose series) 1993 Cologuard 2019 Sigmoidoscopy 2019 COVID-19 Vaccine ( season) 2024 02/28/2022, 04/24/2021, 08/07/2020, Additional history exists Lung Cancer Screening 2024 Zoster Vaccines (1 of 2) 2024 Depression Monitoring 11/18/2024 11/19/2023 Fecal Occult Blood Test 02/24/2025 02/25/2024, 02/24 TSH 03/02/2025 03/02/2024, 02/19, 01/06/2023, Additional history exists Mammogram 05/12/2025 05/12/2024, 03/21, 04/05/2023, Additional history exists Pap Smear 09/28/2026 09/29/2023, 12/2021, 01/06/2019 Diabetes Screening 03/02/2027 03/02/2024, 0 01/03/2024, 03/25/2023, Additional history exists Lipid Panel 01/07/2028 01/06/2023, 07/15/2020 Cervical Cancer Screening 09/28/2028 HPV/Co-Test 09/28/2028 09/29/2023 Colonoscopy 03/27/2029 03/27/2024, 12/2023, 12/12/2021, Additional history exists Colorectal Cancer Screening 03/27/2029 DTap/Tdap Vaccines (3 - Td or Tdap) 08/15/2032 08/15/2022, 11/03/2011 Pneumococcal Vaccine: Pediatrics (0 to 5 Years) and At-Risk Patients (6 to 64 Years) Aged Out 07/13/2018 No longer eligible based on patient's age to complete this topic Influenza Vaccine (FLU shot) Completed 03/02/2024, 05/05/2023, 02/28/2022, Additional history exists RETIRED - COLONOSCOPY-EVERY 5 YRS AGES 18-100 Discontinued 03/27/2024, 03/27/2024, 12/12/2021, Additional history exists HPV (Gardasil) Vaccine Aged Out No lo nger eligible based on patient's age to complete this topic MENINGOCOCCAL (MENACTRA/MENVEO) Aged Out No longer eligible based on patient's age to complete this topic documented as of this encounter Medical Devices Not on filedocumented as of this encounter Visit Diagnoses Diagnosis Colitis- Primary Other and unspecified noninfectious gastroenteritis and colitis Temporary high blood pressure Elevated blood pressure reading without diagnosis of hypertension Cervical radiculopathy Brachial neuritis or radiculitis nos Acquired hypothyroidism Unspecified hypothyroidism Intractable migraine with aura without status migrainosus Migraine with aura, with intractable migraine, so stated, without mention of status migrainosus Need for vaccination for zoster Need for prophylactic vaccination and inoculation against other viral diseases Seizure disorder, simple partial, 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
--- OUTSIDE RECORDS SUMMARY | 2024-06-15 01:13 | External Medical Summary | Summary of Care ---
Author Name Unknown Organization [facility] Address [address] [place] [address] Phone [phone] Care Team Providers Care Collateral Specialist Name Role Phone Dayanara Green MD Primary Care Provider [phone] Reason for Visit * Reason Comments Outpatient Testing Encounter Details Date Type Department Care Team (Late st Contact Info) Description 05/29/2024 8:40 AM EST Laboratory Laboratory [facility] [address] [place] [id number] [facility] [address] [place] [address] Intractable chronic migraine without aura and without status migrainosus Allergies Active Allergy Reactions Criticality Noted Date Comments Metoclopramide Hcl 06/01/2018 Pt felt like she crawling out of skin documented as of this encounter (statuses as of 05/29/2024) Medications Fluticasone Propionate 50 MCG/ACT Nasal Suspension [...] evening) 10 Tablet 1 05/03/20 23 Active Auvelity 45-105 MG Oral Tablet [...] Active Additional Information Patient not taking.Reported on 04/11/2024 Aimovig 70 MG/ML Subcutaneous Solution Auto-injector (Erenumab-aooe)Ind ications:Chronic migraine without aura without status migrainosus, not intractable Inject 70mg (1 pen) monthly for migraine prevention. 1 mL 5 4 3:06 PM EST 02/02/20 24 Active Levothyroxine Sodium 50 MCG Oral Tablet (Levoxyl)Indicatio ns:Hypothyroidism, unspecified type TAKE 1 TABLET BY MOUTH [...] a day as needed. 04/10/20 24 Active Mesalamine 800 MG Oral Tablet Delayed Release (Asacol HD) Take 1 Tablet by mouth in the morning and 1 Tablet at noon and 1 Tablet before bedtime. 90 Tablet 3 04/11/20 Active Dicyclomine HCl 10 MG Oral Capsule (Bentyl)Indication s:Pain of upper abdomen Take 1 Capsule by mouth 3 times a day as needed for Pain or Gas. 100 Capsule 04/13/20 Active Budesonide 3 MG Oral Capsule Delayed Release Particles (Entocort EC) Taper: 3 capsules daily for 2 weeks, 2 capsule daily for 2 weeks, 1 capsule daily for 2 weeks. 8490 Capsule 04/14/20 Active SUMAtriptan Succinate 6 MG/0.5ML Subcutaneous Solution Auto-injector (Imitrex)Indicatio ns:Chronic migraine without aura without status migrainosus, not intractable INJECT 1 SYRINGE SUBCUTANEOUSLY AT ONSET OF MIGRAINE HEADACHE. MAY REPEAT DOSE IN 2 HRS IF NEEDED . DO NOT EXCEED 2 DOSES PER 24 HOURS 6 mL 3 05/02/20 Active Naproxen 500 MG Oral Tablet (Naprosyn) Take 1 Tablet by mouth 2 times a day as needed for Pain. With food 40 Tablet 05/24/20 Active Hospital, Clinic, or Other Facility Administered [...] as of this encounter (statuses as of 05/29/2024) Active Problems Problem Noted Date Diagnosed Date [...] as of this encounter (statuses as of 05/29/2024) Resolved Problems Problem Noted Date Diagnosed Date Resolved Date COVID-19 virus infection 04/21/202301/2024 Alzheimer's disease, unspecified (CODE) 03/24/2023 09/06/2023 Food insecurity 04/28/2021 06/04/2022 Overview: Per [facility] Protocol Bipolar 2 disorder 06/01/2018 Intractable migraine with au ra without status migrainosus 06/01/2018 11/27/2023 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 09/16/2015 11/27/2023 documented as of this encounter (statuses as of 05/29/2024) Immunizations Name Administration Dates Next Due COVID-19 [...] Orientation Bisexual 09/20/2018 6: 15 PM EDT documented as of this encounter Plan of Treatment Upcoming Encounters Date Type Department Care Team (Late st Contact Info) Description 05/29/2024 11:40 AM EST Office Visit General Internal Medicine [facility] [address] [facility] [place] [address] Dayanara Green MD [address] [facility] [place] [address] 06/02/2024 10:00 AM EST Office Visit Neurology [facility] [address] [place] [place] [address] Germán Martines DO [address] [place] [place] [address] 07/03/2024 2:30 PM EST [facility] [place] [address] [place] [address] [place], Audiology [facility] [address] [facility] [address] 07/03/2024 3:00 PM EST Office Visit [facility] [place] [address] [place] [id number] Ravin Kam PA-C [address] [place] [address] Pending Results Name Type Priority Associated Diagnoses Date /Time ZONISAMIDE Lab Routine Intractable chronic migraine without aura and without status migrainosus 05/29/2024 8:53 AM EST Health Maintenance Due Date Last Done [...] Pap Smear 09/28/2026 09/29/2023, 02/0 12/2021, 01/06/2019 Diabetes Screening 03/02/2027 03/02/2024, 0 01/03/2024, 03/25/2023, Additional history exists Lipid Panel 01/07/2028 01/06/2023, 07/15/2020 Cervical Cancer Screening 09/28/2028 HPV/Co-Test 09/28/2028 09/29/2023 Colonoscopy 03/27/2029 03/27/2024, 10/0 12/2023, 12/12/2021, Additional history exists Colorectal Cancer [...] as of this encounter Visit Diagnoses Diagnosis Intractable chronic migraine without aura and without status migrainosus Chronic migraine without aura, with intractable migraine, so stated, without mention of status migrainosus documented in this encounter Advance Directives Healthcare Agents on File Name Relationship Healthcare Agent Relationshi p Communication Samuel Krystle Significant Other Health Care Re presentative (appointed verbally by patient or by statute hierarchy) Care Teams Collateral Specialist Relationship Specialty Start Date End Date Dayanara Green MD [address] [place] [address] PCP - General Internal Medicine 03/21/24 documented as of this encounter
--- OUTSIDE RECORDS SUMMARY | 2024-06-15 01:13 | External Medical Summary | Summary of Care ---
Author Name Unknown Organization [facility] Address [address] [place] [address] Phone [phone] Care Team Providers Care Child Support Case Officer Name Role Phone Dayanara Green MD Primary Care Provider [phone] Reason for Visit * Reason Comments Follow Up Seizure Disorder Headache Encounter Details Date Type Department Care Team (Late st Contact Info) Description 06/02/2024 10:00 AM EST Office Visit Neurology [facility] [address] [place] [address] Germán Martines, DO [address] [place] [address] Intractable chronic migraine without aura and without status migrainosus* Allergies Active Allergy Reactions Criticality Noted Date Comments Metoclopramide Hcl 06/01/2018 Pt felt like she crawling out of skin documented as of this encounter (statuses as of 06/02/2024) Medications Fluticasone Propionate 50 MCG/ACT Nasal Suspension [...] 5 MG Oral Tablet at bedtime. 12/24/19 Active Meclizine HCl 25 MG Oral Tablet [...] 06/02/2024 Aimovig 70 MG/ML Subcutaneous Solution Auto-injector (Erenumab-aooe)Ind [...] 2 times a day as needed. 04/10/20 Active Dicyclomine HCl 10 MG Oral Capsule (Bentyl)Indication s:Pain of upper abdomen Take 1 Capsule by mouth 3 times a day as needed for Pain or Gas. 100 Capsule 04/13/20 Active Additional Information Patient not taking.Reported on [...] Pain. With food 40 Tablet 05/24/20 Active predniSONE 10 MG Oral Tablet (Deltasone) Taper as directed 05/19/20 Active predniSONE 5 MG Oral Tablet (Deltasone) Taper as directed 05/23/20 Active Zoster Vac Recomb Adjuvanted 50 MCG/0.5ML Intramuscular Suspension Reconstituted (Shingrix)Indicati ons:Need for vaccination for zoster Inject 0.5 mL into a large muscle now and repeat dose in 60 to 180 days 1 Each 05/29/20 Active Hospital, Clinic, or Other Facility Administered [...] as of this encounter (statuses as of 06/02/2024) Active Problems Problem Noted Date Diagnosed Date [...] as of this encounter (statuses as of 06/02/2024) Resolved Problems Problem Noted Date Diagnosed Date Resolved Date COVID-19 virus infection 04/21/202301/2024 Alzheimer's disease, unspecified (CODE) 03/24/2023 09/06/2023 Food insecurity 04/28/2021 06/04/2022 Overview: Per [facility] Protocol Bipolar 2 disorder 06/01/2018 Intractable migraine with au ra without status migrainosus 06/01/2018 11/27/2023 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 09/16/2015 11/27/2023 documented as of this encounter (statuses as of 06/02/2024) Immunizations Name Administration Dates Next Due COVID-19 [...] Sign Reading Time Taken Comments Blood Pressure 140/86 06/02/2024 9:37 AM EST Pulse 91 06/02/2024 9:37 AM EST Temperature 36.5 C (97.7 F) 06/02/2024 9:37 AM ES T Respiratory Rate 18 06/02/2024 9:37 AM EST Oxygen Saturation 99% 06/02/2024 9:37 AM EST Inhaled Oxygen Concentration - - Weight 68.5 kg (151 lb) 06/02/2024 9:37 AM EST Height - - Body Mass Index 27.62 03/27/2024 1:38 PM EDT documented in this encounter Progress Notes * Germán Martines, DO - 06/02/2024 10:38 AM EST [place] [address] NAME: Rosey Hua Date of : 1975 Date of Visit: 11/13/22 Chief Complaint: Migraine headache Subjective: A 49-year-old female with history of chronic migraine headache without aura currently on zonisamide 150 mg daily and Aimovig 70 mg monthly presenting to clinic for follow-up. Patient was last seen by myself in November of 2023. At the last appointment decision was made to increase zonisamide from 100 mg daily to 150 mg daily. In the interim she stopped Ajovy and was no longer helping. Sheis now on low-dose Aimovig 70 mg monthly. She is currently being evaluated for inflammatory bowel disease in his on prednisone. She is still having frequent headaches although she is hopeful that herheadaches will improve with control of her inflammatory bowel disease. She is suffering from diarrhea. HOME MEDICATIONS : Current Outpatient Medications Medication Sig Dispense Refill Fluticasone Propionate 50 MCG/ACT Nasal Suspension (Flonase) Administer 2 Sprays into each nostril in the morning and 2 Sprays before bedtime. 18.2 mL 6 Vitamin D-3 25 MCG (1000 UT) Oral Capsule Take 1 Capsule by mouth in the morning. Belsomra 5 MG Oral Tablet at bedtime. Auvelity 45-105 MG Oral Tablet Extended Release [...] MG Oral Tablet (Deltasone) Taper as directed Ondansetron HCl 4 MG Oral Tablet Take by mouth 1 Tablet every 6 hours as needed for Nausea. (Patient not taking: Reported on 06/02/2024) 30 Tablet 2 Meclizine HCl 25 MG Oral Tablet (Antivert) TAKE 1 TABLET BY MOUTH THREE TIMES DAILY IF NEEDED for dizziness (morning, noon, evening) (Patient not taking: Reported on 06/02/2024) 10 Tablet 1 Sucralfate 1 GM/10ML Oral Suspension (Carafate) 4 times a day. (Patient not taking: Reported on 01/10/2024) oxyCODONE-Acetaminophen 5-325 MG Oral Tablet (Percocet) Take 1 Tablet by mouth every 6 hours as needed. Using 1/2 tab (Patient not taking: Reported on 03/21/2024) Probiotic & Acidophilus Ex St Oral Capsule Take 1 Capsule by mouth in the morning and 1 Capsuleat noon and 1 Capsule in the evening. Take with meals. (Patient not taking: Reported on 04/11/2024)60 Capsule 1 Dicyclomine HCl 10 MG Oral Capsule (Bentyl) Take 1 Capsule by mouth 3 times a day as needed for Pain or Gas. (Patient not taking: Reported on 06/02/2024) 100 Capsule 0 Zoster Vac Recomb Adjuvanted 50 MCG/0.5ML Intramuscular Suspension Reconstituted (Shingrix) Inject 0.5 mL into a large muscle now and repeat dose in 60 to 180 days 1 Each 0 Current Facility-Administered Medications Medication Dose Route Frequency Provider Last Rate Last Admin Albuterol Sulfate (Proventil) (2.5 MG/3ML) 0.083% inhalation solution 2.5 mg 2.5 mg Nebulizer PRN Javon Garcia III, MD 2.5 mg at 10/07/23 0951 Albuterol Sulfate (Proventil) (5 MG/ML) 0.5% *conc* inhalation solution 2.5 mg 2.5 mg Nebulizer PRNPJavon berg III, MD Review of patient's allergies indicates: Allergen Reactions Reglan [Metoclopramide Hcl] Pt felt like she crawling out of skin PHYSICAL EXAMINATION: Vital Signs: Patient was seen on televideo. She appears stated age, no acute distress. She is sitting upright. Head is atraumatic normocephalic breathing is nonlabored. Eyes are midline. No ptosis. Extraocular muscles are intact. Face is symmetric. Tongue is midline. Speech is clear. No aphasia. No involuntarymovements. LABORATORY: Labs reviewed and pertinent findings are indicated below: Component Latest Ref Rng 01/06/2023 03/08/2023 03/25/2023 BUN 6 - 20 mg/dL 15 14 Creatinine 0.5 - 1.0 mg/dL 0.9 1.2 (H) Estimated Glomerular Filtration Rate >=60 mL/min 78 58 (L) Sodium 135 - 146 mmol/L 140 141 Potassium 3.5 - 5.1 mmol/L 4.1 3.3 (L) Chloride 98 - 107 mmol/L 104 102 CO2 22 - 32 mmol/L 26 28 Anion Gap 7 - 15 mmol/L 10 11 Glucose 70 - 120 mg/dL 97 80 Albumin 3.8 - 5.0 g/dL 4.3 4.4 AST 10 - 35 U/L 19 10 Alkaline Phosphatase 35 - 130 U/L 126 94 Bilirubin, Total <=1.2 mg/dL 0.3 0.4 Calcium 8.4 - 10.2 mg/dL 8.9 8.7 Protein 6.0 - 8.3 g/dL 6.5 6.2 ALT 10 - 35 U/L 15 15 Color, Urine Colorless, Light Yellow, Yellow, Dark Yellow Yellow Clarity, Urine Clear Slightly Cloudy ! Glucose, Urine Negative mg/dL Negative Bilirubin, Urine Negative Negative Ketone, Urine Negative mg/dL Negative Specific [place], Urine 1.003 - 1.030 1.019 Blood, Urine Negative Negative pH, Urine 5.0 - 7.5 Units 6.5 Protein, Urine Negative mg/dL Trace ! Urobilinogen, Urine Normal mg/dL Normal Nitrite, Urine Negative Negative Esterase, Urine Negative Large ! RBC, Urine 0 - 2 /HPF 0-2 WBC, Urine 0 - 2 /HPF 3-5 ! Bacteria, Urine 0 - 25 /HPF 51-100 ! Squamous Epithelial Cells, Urine None /HPF Many ! WBC 4.00 - 10.80 K/uL 10.08 Neutrophils % 40.0 - 75.0 % 57.4 Lymphocytes % 18.0 - 42.0 % 32.8 Monocytes % 1.0 - 11.0 % 8.7 Eosinophils % 0.0 - 6.0 % 0.8 Basophils % 0.0 - 2.0 % 0.3 Absolute Neutrophils 1.80 - 7.70 K/uL 5.78 Absolute Lymphocytes 1.00 - 4.80 K/ul 3.31 Absolute Monocytes 0.00 - 1.10 K/uL 0.88 Absolute Eosinophils 0.00 - 0.70 K/uL 0.08 Absolute Basophils 0.00 - 0.20 K/uL 0.03 WBC 4.00 - 10.80 K/uL 7.92 10.08 RBC 3.85 - 5.15 M/uL 4.67 4.49 HGB 12.0 - 15.3 g/dL 14.2 13.8 HCT 36.0 - 45.2 % 42.0 40.8 MCV 81.5 - 97.5 fL 89.9 90.9 MCH 27.0 - 34.0 pg 30.4 30.7 MCHC 32.0 - 36.0 g/dL 33.8 33.8 RDW 11.5 - 15.5 % 13.1 13.1 PLT 140 - 400 K/uL 246 242 MPV 6.6 - 11.1 fL 9.5 9.5 Triglycerides <=174 mg/dL 214 (H) Cholesterol <200 mg/dL 212 (H) HDL Cholesterol >49 mg/dL 56 Non-HDL Cholesterol <=159 mg/dL 156 LDL Cholesterol <=129 mg/dL 113 Hemoglobin A1C 4.0 - 5.6 % 5.3 Estimated Average Glucose <126 mg/dL 105 TSH 0.27 - 4.20 uIU/mL 2.11 1.50 T4, Free 0.9 - 1.7 ng/dL 0.7 (L) 1.2 Legend: (H) High (L) Low ! Abnormal Review of prior Diagnostic Tests: Review of prior Radiology Studies: MRI of the brain with without contrast performed on 09/24/2021: COMPARISON None. TECHNIQUE Multiplanar, multisequence MRI of the brain was performed before and after the administration of intravenous contrast. FINDINGS No acute infarct, acute intracranial hemorrhage, mass effect, midline shift, hydrocephalus, or extra-axial fluid collection. No abnormal enhancement. Brain volume is age appropriate. Ventricles are normal in size and configuration. Basal cisterns are patent. Intraorbital contents are unremarkable. Mild mucosal thickening in the bilateral ethmoid air cells.Small retention cyst in the right maxillary sinus. Bilateral mastoid air cells are clear. IMPRESSION IMPRESSION 1. No acute intracranial abnormality. IMPRESSION / PLAN: Rosey was seen today for follow up, seizure disorder and headache. Diagnoses and all orders for this visit: Intractable chronic migraine without aura and without status migrainosus Rosey Hua is a 48-year-old female with intractable chronic migraine headache on zonisamide 150 mg daily and Aimovig 70 mg monthly presenting clinic for follow-up. She has had an increased frequency of migraine headaches recently possibly associated with newly diagnosed inflammatory bowel disease. She has previously been on Botox for migraine prevention as well as Ajovy. These were both stoppedas benefits seem to have reduced or she stopped responding. I recommended we increase Aimovig to 120 mg monthly although she wishes to defer this time while she is currently on prednisone for her inflammatory bowel disease. Will continue current dose of zonisamide 150 mg daily and Aimovig 70 mg monthly for now. Zonisamide level is currently pending. Will arrange for formal follow-up in 6 months. Germán Martines DO documented in this encounter Nursing Notes * Yaz Barbosa RN - 06/02/2024 9:40 AM EST Follow up visit today. Mild headache today. Unaware of any recent seizure activitiy. Does note she has a head cold today and is masked during visit. documented in this encounter Plan of Treatment Upcoming Encounters Date Type Department Care Team (Late st Contact Info) Description 07/03/2024 2:30 PM EST Office Visit [facility] [place] [address] [place] [address] [place] Audiology Tech [facility] [address] [facility] [place] [address] 07/03/2024 3:00 PM EST Office Visit [facility] [place] [address] [place] [address] Ravin Kam PA-C [address] [place] [address] 09/07/2024 1:00 PM EDT Office Visit General Internal Medicine [facility] [place] [address] [facility] [address] [place] [address] Dayanara Green MD [address] [facility] [place] [address] 12/12/2024 11:20 AM EDT Office Visit Neurology [facility] [place] [address] [facility] [place] [address] Germán Martines, [address] [facility] [place] [address] Health Maintenance Due Date Last Done Comments [...] Additional history exists Pap Smear 09/28/2026 09/29/2023, 020 12/2021, 01/06/2019 Diabetes Screening 03/02/2027 03/02/2024, 0 [...] chronic migraine without aura and without status migrainosus- Primary Chronic migraine without aura, with intractable migraine, so stated, without mention of status migrainosus documented in this encounter Advance Directives Healthcare Agents on File Name Relationship Healthcare Agent Relationshi p Communication Samuel Dalton Significant Other Health Care Re presentative (appointed verbally by patient or by statute hierarchy) Care Teams Child Support Case Officer Relationship Specialty Start Date End Date Dayanara Green MD [address] [place] [id number] PCP - General Internal Medicine 03/21/24 documented as of this encounter
--- OUTSIDE RECORDS SUMMARY | 2024-06-15 01:13 | External Medical Summary | Summary of Care ---
Author Name Unknown Organization [facility] Address [address] [place] [address] Phone [phone] Care Team Providers Care Precipitation Equipment Tender Name Role Phone Dayanara Green MD Primary Care Provider [phone] Encounter Details Date Type Department Care Team (Late st Contact Info) Description 05/19/2024 Telephone Gastroenterology, [facility] [address] [place] [address] Anaya Pardo CRNP [address] [place] [address] Allergies Active Allergy Reactions Criticality Noted Date Comments Metoclopramide Hcl 06/01/2018 Pt felt like she crawling out of skin documented as of this encounter (statuses as of 05/19/2024) Medications Fluticasone Propionate 50 MCG/ACT Nasal Suspension [...] 24 HOURS 6 mL 3 05/02/20 Active Hospital, Clinic, or Other Facility Administered [...] as of this encounter (statuses as of 05/19/2024) Active Problems Problem Noted Date Diagnosed Date [...] as of this encounter (statuses as of 05/19/2024) Resolved Problems Problem Noted Date Diagnosed Date Resolved Date COVID-19 virus infection 04/21/202301/2024 Alzheimer's disease, unspecified (CODE) 03/24/2023 09/06/2023 Food insecurity 04/28/2021 06/04/2022 Overview: Per [facility] Protocol Bipolar 2 disorder 06/01/2018 Intractable migraine with au ra without status migrainosus 06/01/2018 11/27/2023 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 09/16/2015 11/27/2023 documented as of this encounter (statuses as of 05/19/2024) Immunizations Name Administration Dates Next Due COVID-19 [...] PM EDT documented as of this encounter Miscellaneous Notes * Telephone Encounter - Vicki Mccann RN - 05/19/2024 11:24 AM EST Spoke to provider who recommended keeping office visit with her next week for full exam. Called pt back and informed her of this and again reiterated that should she experience large amounts of bleeding and severe pain, she needs to return to her nearest ER. Pt states she understands and will keep her office visit next week. * Telephone Encounter - Vicki Mccann RN - 05/19/2024 10:50 AM EST Pt calling c/o bloody diarrhea again since 3am this morning. Had recent ED visit at [facility] on Wednesday where a CT was completed and was negative. Pt states blood in stool is maroon in color andhas had 3 episodes of large diarrhea since this started. (+) abdominal around umbilicus. Advised ptto return to ED if severe pain and large bleeding occurs. documented in this encounter Plan of Treatment Upcoming Encounters Date Type Department Care Team (Late st Contact Info) Description 05/25/2024 12:30 PM EST Telemedicine Gastroenterology, [facility] [address] [place] [address] Anaya Pardo CRNP [address] [place] [address] 06/02/2024 10:00 AM EST Office Visit Neurology [facility] [address] [facility] [place] [address] Germán Martines, DO [address] [place] [address] 07/03/2024 2:30 PM EST Office Visit Otolaryngology, [place] [address] [place] [address] [place] Audiology Tech [place] [address] [place] [address] 07/03/2024 3:00 PM EST Office Visit Otolaryngology, [place] [address] [place] [address] Ravin Kam PA-C [address] [place] [address] Health Maintenance Due Date Last Done Comments HIV Screening 1989 Hepatitis B Vaccine (1 of 3 - 19+ 3-dose series) 1993 Cologuard 2019 Sigmoidoscopy 2019 COVID-19 Vaccine ( season) 2024 02/28/2022, 04/24/2021, 08/07/2020, Additional history exists Depression Monitoring 11/18/2024 11/19/2023 Fecal Occult Blood [...] patient or by statute hierarchy) Care Teams Precipitation Equipment Tender Relationship Specialty Start Date End Date Dayanara Green MD [address] [place] [id number] PCP - General Internal Medicine 03/21/24 documented as of this encounter
--- OUTSIDE RECORDS SUMMARY | 2024-06-15 01:13 | External Medical Summary ---
Author Name Unknown Address Unknown Organization : Laboratory Report Ordering Provider Test Date Status BINTA SEAMAN 05/29/2024 08:53:37 Final Observation Date Value Abnormality Reference (Units ) Status ZONISAMIDE 05/29/2024 08:53:37 7.4 Below low normal 10 .0-40.0 (mcg/mL) Final (Note)
This test was dev eloped and its analytical performance
characteristics have been determined by [facility]. It has not been cleared or approved by the
FDA. This assay has been validated pursuant to the CLIA
regulations and is used for clinical purposes.
MD
med [facility]
[address] [place] [address],[address]
[facility] [address]
[phone]
Harmeet Curiel MD, PhD
Test performed by [facility]
[address] [place] [address]
[address]
[place] [address]

Ornamental Plasterer Helper: Harmeet Curiel MD, PhD
Test Reported by [facility] [place],
[facility],
[address] [place], [place]
Vicente Beaulieu M.D., Ph.D., Director of Laboratories
, CLIA [id number] Performing Location
--- OUTSIDE RECORDS SUMMARY | 2024-06-15 01:13 | External Medical Summary | Summary of Care ---
Author Name Unknown Organization [facility] Address [address] [place] [address] Phone [phone] Care Team Providers Care Battery Installer Name Role Phone Dayanara Green MD Primary Care Provider [phone] Encounter Details Date Type Department Care Team (Late st Contact Info) Description 05/24/2024 Orders Only PATIENT PORTAL DO NOT DELETE THIS DEPT [id number] Allergies Active Allergy Reactions Criticality Noted Date Comments Metoclopramide Hcl 06/01/2018 Pt felt like she crawling out of skin documented as of this encounter (statuses as of 05/24/2024) Medications Fluticasone Propionate 50 MCG/ACT Nasal Suspension [...] before bedtime. 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 09/16/2015 11/27/2023 documented as of this encounter (statuses as of 05/24/2024) Immunizations Name Administration Dates Next Due COVID-19 [...] 10:00 AM EST Office Visit Neurology [facility] [place] [address] [place] [address] Germán Martines, DO [address] [place] [address] 07/03/2024 2:30 PM EST Office Visit [facility] [place] [address] [place] [address] Dave/[place]esfin Audiology [facility] [address] [facility] [place] [address] 07/03/2024 3:00 PM EST Office Visit [facility] [place] [address] [place] [address] Ravin Kam PA-C [address] [place] [address] Health Maintenance Due Date Last Done Comments [...] patient or by statute hierarchy) Care Teams Battery Installer Relationship Specialty Start Date End Date Dayanara Green MD [address] [facility] [place] [address] PCP - General Internal Medicine 03/21/24 documented as of this encounter
--- OUTSIDE RECORDS SUMMARY | 2024-06-15 01:14 | External Medical Summary | Summary of Care ---
Author Name Unknown Organization [facility] Address [address] [place] [address] Phone [phone] Care Team Providers Care Speedometer Inspector Name Role Phone Dayanara Green MD Primary Care Provider [phone] Reason for Visit * Reason Onset Date Comments Precert Approved 02/02/2024 AIMOVIG Encounter Details Date Type Department Care Team (Late st Contact Info) Description 02/02/2024 Telephone Neurology [facility] [address] [place] [address] Germán Martines, DO [address] [place] [address] Precert Approved ( AIMOVIG) Allergies Active Allergy Reactions Criticality Noted Date Comments Metoclopramide Hcl 06/01/2018 Pt felt like she crawling out of skin documented as of this encounter (statuses as of 05/03/2024) Medications Fluticasone Propionate 50 MCG/ACT Nasal Suspension (Flonase) Administer 2 Sprays into each nostril in the morning and 2 Sprays before bedtime. 18.2 mL 6 021 Active Ondansetron HCl 4 MG Oral TabletIndications :Nausea and vomiting, intractability of vomiting not specified, unspecified vomiting type Take by mouth 1 Tablet every 6 hours as needed for Nausea. 30 Tablet 2 022 Active Vitamin D-3 25 MCG (1000 UT) Oral Capsule Take 1 Capsule by mouth in the morning. Active Belsomra 5 MG Oral Tablet at bedtime. 023 Active Meclizine HCl 25 MG Oral Tablet (Antivert) TAKE 1 TABLET BY MOUTH THREE TIMES DAILY IF NEEDED for dizziness (morning, noon, evening) 10 Tablet 1 023 Active Auvelity 45-105 MG Oral Tablet Extended Release (Dextromethorphan -buPROPion ER) Take 1 Tablet by mouth in the morning and 1 Tablet before bedtime. Active Caplyta 42 MG Oral Capsule (Lumateperone Tosylate) Take 1 Capsule by mouth at bedtime. Active Sucralfate 1 GM/10ML Oral Suspension (Carafate) 4 times a day. 024 Active oxyCODONE-Acetami nophen 5-325 MG Oral Tablet (Percocet) Take 1 Tablet by mouth every 6 hours as needed. Using 1/ tab 024 Active Zonisamide 50 MG Oral Capsule (Zonegran)Indicat ions:Chronic migraine without aura without status migrainosus, not intractable TAKE 1 CAPSULE IN MORNING AND 2 CAPSULES AT NIGHT 90 Capsule 5 024 Active Probiotic & Acidophilus Ex St Oral CapsuleIndication s:Diarrhea, unspecified type Take 1 Capsule by mouth in the morning and 1 Capsule at noon and 1 Capsule in the evening. Take with meals. 60 Capsule 1 024 Active Additional Information Patient not taking.Reported on 04/11/2024 Aimovig 70 MG/ML Subcutaneous Solution Auto-injector (Erenumab-aooe)In dications:Chronic migraine without aura without status migrainosus, not intractable Inject 70mg (1 pen) monthly for migraine prevention. 1 mL 5 04/10/20 24 12:43 PM EDT 024 Active Ibuprofen 200 MG Oral Capsule Take 2 Capsules by mouth every 6 hours as needed. 2023 Discontinued(M edication List Clean Up) medroxyPROGESTERo ne Acetate 2.5 MG Oral Tablet (Provera)Indicati ons:Symptomatic menopausal or female climacteric states Take 1 Tablet by mouth daily. 90 Tablet 3 023 2023 Discontinued(M edication List Clean Up) SUMAtriptan Succinate 6 MG/0.5ML Subcutaneous Solution Auto-injector (Imitrex)Indicati ons:Chronic migraine without aura without status migrainosus, not intractable inject one syringe at onset of headache and may repeat in 2 hours if needed- max of two syringes per day 6 mL 3 023 2023 Discontinued Levothyroxine Sodium 50 MCG Oral Tablet (Levoxyl)Indicati ons:Hypothyroidis m, unspecified type Take 1 tablet by mouth daily first thing in the morning at least 30 minutes prior to breakfast or other meds. 90 Tablet 2 023 2023 Discontinued Ventolin HFA 108 (90 Base) MCG/ACT Inhalation Aerosol Solution Inhale 2 Puffs by mouth every 4 hours as needed (wheezing, chest tightness or cough). 18 g 024 2023 Discontinued(M edication List Clean Up) Estradiol 0.05 MG/24HR Transdermal Patch Twice WeeklyIndications :Symptomatic menopausal or female climacteric states Apply one patch to trunk, abdomen or buttocks, change twice per week. 8 Patch 3 024 2023 Discontinued(M edication List Clean Up) LORazepam 0.5 MG Oral Tablet (Ativan) 024 2023 Discontinued(P atient preference/dis continuation) Cholestyramine 4 GM Oral Packet (Questran) Take 1 Packet by mouth in the morning and 1 Packet before bedtime. mixed with liquid.. 60 Packet 2 024 2023 Discontinued Pantoprazole Sodium 40 MG Oral Tablet Delayed Release (Protonix)Indicat ions:Gastroesopha geal reflux disease without esophagitis Take 1 Tablet by mouth in the morning. In the morning.. 90 Tablet 1 024 2023 Discontinued(M edication List Clean Up) Fidaxomicin 200 MG Oral Tablet (Dificid) Take 200mg by mouth twice daily for 5 days, then once every other day for 20 days 20 Tablet 024 2023 Discontinued(E nd of Procedure) Dicyclomine HCl 10 MG Oral Capsule (Bentyl)Indicatio ns:Pain of upper abdomen Take 1 Capsule by mouth 3 times a day as needed for Pain or Gas. 100 Capsule 1 024 2023 Discontinued Hospital, Clinic, or Other Facility Administered [...] as of this encounter (statuses as of 05/03/2024) Active Problems Problem Noted Date Diagnosed Date [...] as of this encounter (statuses as of 05/03/2024) Resolved Problems Problem Noted Date Diagnosed Date Resolved Date COVID-19 virus infection 04/21/202301/2024 Alzheimer's disease, unspecified (CODE) 03/24/2023 09/06/2023 Food insecurity 04/28/2021 06/04/2022 Overview: Per [facility] Protocol Bipolar 2 disorder 06/01/2018 Intractable migraine with au ra without status migrainosus 06/01/2018 11/27/2023 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 (Household - for ages [...] Miscellaneous Notes * Telephone Encounter - Monet Segovia CPhT - 02/02/2024 1:28 PM EDT New or re-auth: New Patient Rosey Hua needs a prior authorization for a medication through their [facility] insurance. Medication: Aimovig 70 Formulation: soaj Dosage: 70mg monthly ID: [id number] BIN:[id number] PCN:[id number] Target ship date is n/a. Thank you very much, Monet Segovia CPhT [employer] [facility] 02/02/2024,1:29 PM documented in this encounter Plan of Treatment Upcoming Encounters Date Type Department Care Team (Late st Contact Info) Description 05/12/2024 9:30 AM EST Imaging Radiology [facility] 1st [facility] [address] [facility] [place] [address] 05/25/2024 12:30 PM EST Telemedicine Gastroenterology, [facility] [address] [facility] [place] [address] Anaya Pardo CRNP [address] [facility] [place] [address] 06/02/2024 10:00 AM EST Office Visit Neurology [facility] [address] [place] [address] Germán Martines, DO [address] [place] [address] 07/03/2024 2:30 PM EST Office Visit Otolaryngology, [place] [address] [place] [address] Dave/Mesfin Audiology [facility] [place] [address] [facility] [place] [address] 07/03/2024 3:00 PM EST Office Visit [facility] [place] [address] [place] [address] Ravin Kam PA-C [address] [place] [address] Health Maintenance Due Date Last Done Comments HIV Screening 1989 Hepatitis B Vaccine (1 of 3 - 19+ 3-dose series) 1993 Cologuard 2019 Sigmoidoscopy 2019 COVID-19 Vaccine ( season) 2024 02/28/2022, 04/24/2021, 08/07/2020, Additional history exists Mammogram 04/05/2024 04/05/2023, 03/21, 04/02/2022, Additional history exists Depression Monitoring 11/18/2024 11/19/2023 Fecal Occult Blood Test 02/24/2025 02/25/2024, 02/24 TSH 03/02/2025 03/02/2024, 02/19, 01/06/2023, Additional history exists Pap Smear 09/28/2026 09/29/2023, 12/2021, 01/06/2019 Diabetes Screening 03/02/2027 03/02/2024, 0 01/03/2024, 03/25/2023, Additional history exists Lipid Panel 01/07/2028 01/06/2023, 07/15/2020 Cervical Cancer Screening 09/28/2028 HPV/Co-Test 09/28/2028 09/29/2023 Colonoscopy 03/27/2029 03/27/2024, 100 12/2023, 12/12/2021, Additional history exists Colorectal Cancer [...] Indicated Resolved Time C. difficile 01/25/2024 01/25/2024 02/24/2024 12:2 0 AM EDT C. difficile Rule-Out 02/25/2024 02/25/20242023 5:44 PM EDT C. difficile Rule-Out 03/08/2024 03/08/20242023 9:24 PM EDT C. difficile Rule-Out 03/27/2024 03/27/20242023 11:21 PM EDT documented as of this encounter Advance Directives Healthcare Agents on File Name Relationship Healthcare Agent Relationshi p Communication Samuel Krystle Significant Other Health Care Re presentative (appointed verbally by patient or by statute hierarchy) Care Teams Speedometer Inspector Relationship Specialty Start Date End Date Dayanara Green MD [address] [place] [address] PCP - General Internal Medicine 03/21/24 documented as of this encounter
--- OUTSIDE RECORDS SUMMARY | 2024-06-15 01:14 | External Medical Summary | Summary of Care ---
Author Name Unknown Organization [facility] Address [address] [place] [address] Phone [phone] Care Team Providers Care Cna Per Diem Name Role Phone Dayanara Green MD Primary Care Provider [phone] Reason for Visit * Reason Comments eRx-Medication Refill Encounter Details Date Type Department Care Team (Late st Contact Info) Description 04/30/2024 Refill Neurology [facility] [address] [place] [address] Germán Martines, DO [address] [place] [address] Chronic migraine without aura without status migrainosus, not intractable Allergies Active Allergy Reactions Criticality Noted Date Comments Metoclopramide Hcl 06/01/2018 Pt felt like she crawling out of skin documented as of this encounter (statuses as of 05/02/2024) Medications Fluticasone Propionate 50 MCG/ACT Nasal Suspension [...] dizziness (morning, noon, evening) 10 Tablet 1 Active Auvelity 45-105 MG Oral Tablet Extended [...] mouth every 6 hours as needed. Using / tab Active Zonisamide 50 MG Oral Capsule (Zonegran)Indicat [...] evening. Take with meals. 60 Capsule 1 Active Additional Information Patient not taking.Reported on 04/11/2024 Aimovig 70 MG/ML Subcutaneous Solution Auto-injector (Erenumab-aooe)In dications:Chronic migraine without aura without status migrainosus, not intractable Inject 70mg (1 pen) monthly for migraine prevention. 1 mL 5 04/10/20 24 12:43 PM EDT 024 Active Levothyroxine Sodium 50 MCG Oral Tablet (Levoxyl)Indicati ons:Hypothyroidis m, unspecified type TAKE 1 TABLET BY MOUTH DAILY FIRST THING IN THE MORNING AT LEAST 30 MINUTES PRIOR TO BREAKFAST OR OTHER MEDICATIONS 90 Tablet 2 024 Active Colestipol HCl 1 GM Oral Tablet (Colestid) Take 1 Tablet by mouth in the morning and 1 Tablet before bedtime. 60 Tablet 3 024 Active clonazePAM 0.5 MG Oral Tablet (KlonoPIN) Take 1 Tablet by mouth 2 times a day as needed. 024 Active Mesalamine 800 MG Oral Tablet Delayed Release (Asacol HD) Take 1 Tablet by mouth in the morning and 1 Tablet at noon and 1 Tablet before bedtime. 90 Tablet 3 024 Active Dicyclomine HCl 10 MG Oral Capsule (Bentyl)Indicatio ns:Pain of upper abdomen Take 1 Capsule by mouth 3 times a day as needed for Pain or Gas. 100 Capsule 024 Active Budesonide 3 MG Oral Capsule Delayed Release Particles (Entocort EC) Taper: 3 capsules daily for 2 weeks, 2 capsule daily for 2 weeks, 1 capsule daily for 2 weeks. 8490 Capsule 024 Active SUMAtriptan Succinate 6 MG/0.5ML Subcutaneous Solution Auto-injector (Imitrex)Indicati ons:Chronic migraine without aura without status migrainosus, not intractable INJECT 1 SYRINGE SUBCUTANEOUSLY AT ONSET OF MIGRAINE HEADACHE. MAY REPEAT DOSE IN 2 HRS IF NEEDED . DO NOT EXCEED 2 DOSES PER 24 HOURS 6 mL 3 024 Active SUMAtriptan Succinate 6 MG/0.5ML Subcutaneous Solution Auto-injector (Imitrex)Indicati ons:Chronic migraine without aura without status migrainosus, not intractable inject one syringe at onset of headache and may repeat in 2 hours if needed- max of two syringes per day 6 mL 3 023 2023 Discontinued Hospital, Clinic, or Other Facility [...] as of this encounter (statuses as of 05/02/2024) Active Problems Problem Noted Date Diagnosed Date [...] as of this encounter (statuses as of 05/02/2024) Resolved Problems Problem Noted Date Diagnosed Date Resolved Date COVID-19 virus infection 04/21/202301/2024 Alzheimer's disease, unspecified (CODE) 03/24/2023 09/06/2023 Food insecurity 04/28/2021 06/04/2022 Overview: Per [facility] Protocol Bipolar 2 disorder 06/01/2018 Intractable migraine with au ra without status migrainosus 06/01/2018 11/27/2023 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 MAY REPEAT DOSE IN 2 HRS IF NEEDED . DO NOT EXCEED 2 DOSES PER 24 HOURSAuthorizing Provider: GERMÁN MARTINES User: ZULEYMA STARKEY * Telephone Encounter - Zuleyma Starkey RPh - 05/02/2024 6:25 AM EST Reviewed chart. No recent [place]/stroke history on file. Refills authorized. Thank you, Zuleyma Starkey, PharmD Clinical Pharmacist [facility] [phone] 05/02/2024, 6:31 AM documented in this encounter Plan of Treatment Upcoming Encounters Date Type Department Care Team (Late st Contact Info) Description 05/12/2024 9:30 AM EST Imaging Radiology [facility]st [facility] [address] [place] [address] 05/25/2024 12:30 PM EST Telemedicine Gastroenterology, [facility] [address] [place] [address] Anaya Pardo CRNP [address] [facility] [place] [address] 06/02/2024 10:00 AM EST Office Visit Neurology [facility] [address] [place] [address] Germán Martines, DO [address] [place] [address] 07/03/2024 2:30 PM EST Office Visit Otolaryngology, [place] [address] [place] [address] Dave/Mesfin Audiology [facility] [address] [place] [address] 07/03/2024 3:00 PM EST Office Visit [facility] [place] [address] [place] [address] Ravin Kam PA-C [address] [place] [address] Health Maintenance Due Date Last Done Comments [...] intractable migraine without mention of status migrainosus documented in this encounter Advance Directives Healthcare Agents on File Name Relationship Healthcare Agent Relationshi p Communication Samuel Krystle Significant Other Health Care Re presentative (appointed verbally by patient or by statute hierarchy) Care Teams Cna Per Diem Relationship Specialty Start Date End Date Dayanara Green MD [address] [place] [address] PCP - General Internal Medicine 03/21/24 documented as of this encounter
--- OUTSIDE RECORDS SUMMARY | 2024-06-15 01:14 | External Medical Summary | Summary of Care ---
Author Name Unknown Organization [facility] Address [address] [place] [address] Phone [phone] Care Team Providers Care Visiting Teacher Name Role Phone Dayanara Green MD Primary Care Provider Encounter Details Date Type Department Care Team (Late st Contact Info) Description 05/15/2024 Result Scan Unspecified Department <No scans attached> Allergies Active Allergy Reactions Criticality Noted Date Comments Metoclopramide Hcl 06/01/2018 Pt felt like she crawling out of skin documented as of this encounter (statuses as of 05/16/2024) Medications Fluticasone Propionate 50 MCG/ACT Nasal Suspension [...] as of this encounter (statuses as of 05/16/2024) Active Problems Problem Noted Date Diagnosed Date [...] as of this encounter (statuses as of 05/16/2024) Resolved Problems Problem Noted Date Diagnosed Date Resolved Date COVID-19 virus infection 04/21/202301/2024 Alzheimer's disease, unspecified (CODE) 03/24/2023 09/06/2023 Food insecurity 04/28/2021 06/04/2022 Overview: Per 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 09/16/2015 11/27/2023 documented as of this encounter (statuses as of 05/16/2024) Immunizations Name Administration Dates Next Due COVID-19 [...] Description 05/25/2024 12:30 PM EST Telemedicine Gastroenterology, [facility] [address] [address] Anaya Pardo CRNP [address] [place] [address] 06/02/2024 10:00 AM EST Office Visit Neurology [facility] [address] [place] [address] Germán Martines, [address] [place] [address] 07/03/2024 2:30 PM EST Office Visit Otolaryngology, [place] [address] [place] [address] [facility], Audiology [facility] [address] [place] [address] 07/03/2024 3:00 PM EST Office Visit Otolaryngology, [place] [address] [place] [address] Ravin Kam PA-C [address] [place] [address] Health Maintenance Due Date Last Done Comments [...] Procedure Name Priority Date/Time Associated Diagnosis Comments RADIOLOGY SCANNED RESULT 05/15/2024 documented in this encounter Results * RADIOLOGY SCANNED RESULT (05/15/2024) 05/15/2024 us No Physician Data Unknown DIAGNOSTIC RADIOLOGY S ERVICES Final Result documented in this encounter Advance Directives Healthcare Agents on File Name Relationship Healthcare Agent Relationshi p Communication Samuel Krystle Significant Other Health Care Re presentative (appointed verbally by patient or by statute hierarchy) Care Teams Visiting Teacher Relationship Specialty Start Date End Date Dayanara Green MD [address] [place] [address] PCP - General Internal Medicine 03/21/24 documented as of this encounter
--- OUTSIDE RECORDS SUMMARY | 2024-06-15 01:14 | External Medical Summary ---
Author Name Unknown Address Unknown Organization K01:[facility] - [address] [place] [address] Laboratory Report Ordering Provider Test Date Status ALYSIA KAPLANN 05/04/2024 15:29:20 Final Observation Date Value Abnormality Reference (Units) Status Source 05/04/2024 15:29:20 Liquid Final Clostridioides difficile toxin and [id number] strain DNA panel - Stool by CATHERINE with probe detection 05/04/2024 15:29:20 Negative. No C. difficile toxin B gene DNA detected by PCR (Amplified Probe). Negative Final Performing Location [facility] - [address] [place] [address]
--- OUTSIDE RECORDS SUMMARY | 2024-06-15 01:14 | External Medical Summary | Summary of Care ---
Author Name Unknown Organization [facility] Address [address] [place] [address] Phone [phone] Care Team Providers Care Crop Quantitative Geneticist Name Role Phone Dayanara Green MD Primary Care Provider [phone] Reason for Visit * Reason Comments Outpatient Testing Encounter Details Date Type Department Care Team (Late st Contact Info) Description 05/04/2024 3:30 PM EST Laboratory Laboratory [facility] [address] [place] [id number] [facility] [address] [place] [address] Chronic diarrhea Allergies Active Allergy Reactions Criticality Noted Date Comments Metoclopramide Hcl 06/01/2018 Pt felt like she crawling out of skin documented as of this encounter (statuses as of 05/04/2024) Medications Fluticasone Propionate 50 MCG/ACT Nasal Suspension [...] for migraine prevention. 1 mL 5 4 12:43 PM EDT 02/02/20 24 Active Levothyroxine Sodium 50 MCG [...] as of this encounter (statuses as of 05/04/2024) Active Problems Problem Noted Date Diagnosed Date [...] as of this encounter (statuses as of 05/04/2024) Resolved Problems Problem Noted Date Diagnosed Date Resolved Date COVID-19 virus infection 04/21/202301/2024 Alzheimer's disease, unspecified (CODE) 03/24/2023 09/06/2023 Food insecurity 04/28/2021 06/04/2022 Overview: Per [facility] Protocol Bipolar 2 disorder 06/01/2018 Intractable migraine with au ra without status migrainosus 06/01/2018 11/27/2023 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 09/16/2015 11/27/2023 documented as of this encounter (statuses as of 05/04/2024) Immunizations Name Administration Dates Next Due COVID-19 [...] Description 05/12/2024 9:30 AM EST [facility] [address] [facility] [place] [id number] 05/25/2024 12:30 PM EST Telemedicine Gastroenterology, [facility] [address] [facility] [place] [address] Anaya Pardo CRNP [address] [facility] [place] [address] 06/02/2024 10:00 AM EST Office Visit Neurology [facility] [address] [place] [address] Germán Martines, DO [address] [place] [id number] 07/03/2024 2:30 PM EST Office Visit Otolaryngology, [place] [address] [place] [address] [facility] [address] [facility] [place] [address] 07/03/2024 3:00 PM EST Office Visit Otolaryngology, [place] [address] [place] [phone] Ravin Kam PA-C [address] [place] [address] Pending Results Name Type Priority Associated Diagnoses Date /Time CLOSTRIDIUM DIFFICILE, PCR Lab Routine Chronic diarrhea 05/04/2024 3:29 PM EST Health Maintenance Due Date Last [...] of this encounter Visit Diagnoses Diagnosis Chronic diarrhea Diarrhea documented in this encounter Additional Health Concerns Infection Onset Date Last Indicated Resolved Time C. difficile Rule-Out 05/04/2024 05/04/2024 documented as of this encounter Advance Directives Healthcare Agents on File Name Relationship Healthcare Agent Relationshi p Communication Samuel Krystle Significant Other Health Care Re presentative (appointed verbally by patient or by statute hierarchy) Care Teams Crop Quantitative Geneticist Relationship Specialty Start Date End Date Dayanara Green MD [address] [facility] [place] [address] PCP - General Internal Medicine 03/21/24 documented as of this encounter
--- NOTE | 2024-06-15 01:25 | Emergency Department Note ---
History of Present Illness General Chief complaint: Abdominal Pain Stated complaint: ABD PAIN,NAUSEA,VOMITING,DIARRHEA Time Seen by Provider: 06/15/24 01:16 History of Present Illness Maximum Pain Intensity: 10 This 49-year-old female with a history of C. difficile colitis currently on prednisone that scheduled her colonoscopy later this month with GI presents ER for nausea vomiting diarrhea bloody diarrhea and abdominal pain today. No well water. No recent travel. She states this feels different than her C. difficile infections. Patient denies chest pain, dyspnea, fever, chills, cough, congestion. Home Medications Medication Instructions Recorded Confirmed Type fremanezumab-vfrm 225 mg/1.5 mL 225 mg subcut UD 12/04/19 02/03/24 History subcutaneous syringe (Ajovy Syringe) sumatriptan succinate 6 mg/0.5 mL 6 mg subcut UD PRN Migraine 12/04/19 02/03/24 History subcutaneous pen injector Headache zonisamide 50 mg capsule 50 mg PO QAM 11/11/20 02/03/24 History ondansetron HCl 4 mg tablet 4 mg PO Q6H PRN Nausea 09/04/21 02/03/24 History dextromethorphan IR 45 1 tab PO BID 11/02/23 02/03/24 History mg-bupropion ER 105 mg biphasic tablet (Auvelity) fluticasone propionate 50 2 spray intranasal DAILY PRN 11/02/23 02/03/24 History mcg/actuation nasal ALLERGIES spray,suspension levothyroxine 50 mcg tablet 50 mcg PO DAILYBB 11/02/23 02/03/24 History lumateperone 42 mg capsule 42 mg PO HS 11/02/23 02/03/24 History (Caplyta) meclizine 25 mg tablet 25 mg PO TID PRN Dizziness 11/02/23 02/03/24 History suvorexant 10 mg tablet (Belsomra) 10 mg PO DAILY 11/02/23 02/03/24 History fidaxomicin 200 mg tablet (Dificid) 200 mg PO Q OTHER DAY 02/03/24 02/03/24 History zonisamide 100 mg capsule 100 mg PO HS 02/03/24 02/03/24 History Allergies Allergy/AdvReac Type Severity Reaction Status Date / Time metoclopramide [From Reglan] AdvReac Intermediate FELT LIKE Verified 02/03/24 21:25 "SKIN CRAWLING" Past Med/Surg History Problem List (Updated 06/15/24 @ 03:20 by Cecile Johns PA-C) Norovirus (Acute) COVID-19 (Acute) Pancreatitis (Acute) Syncope Diarrhea (Acute) BRBPR (bright red blood per rectum) Diarrhea (Acute) Dehydration (Acute) History of seizure Hypothyroidism Clostridium difficile infection (Acute) Intractable abdominal pain (Acute) Gastroenteritis (Acute) Migraine (Acute) Medical History (Updated 06/15/24 @ 03:20 by Cecile Johns PA-C) Epilepsy Surgical History Hx of section Social History Smoking Status: Never smoker Tobacco Type: Cigarettes Cigarettes Per Day: 1 pack per day; Second Hand Exposure: Yes; Do You Dip or Chew Tobacco: No; Hx Alcohol Use: No Hx Substance Use: Yes Last Used Substance: Days (ago) Last Used Substance Other:: Thursday 02/01 Substance Use Type Other:: medical marijuana Preferred Language: Anguillan Communication Ability: Effective Slurry Control Tender Required: No Beliefs That Will Affect Care: None Current Living Situation: Family and Significant Other Current Living Situation Comment: boyfriend and son Feels Safe at Home: Yes Assistive Devices: None Review of Systems A total of 10 systems reviewed and were otherwise negative Physical Exam Vital Signs Vital Signs - 24 hr 06/15/24 01:10 06/15/24 02:36 Temperature 36.8 C Temperature Source Temporal Artery Scan Pulse Rate 107 H Pulse Rate [Finger] 96 H Respiratory Rate 17 18 Respiratory Effort / Characteristics Non-Labored Spontaneous Non-Labored Spontaneous Respiratory Depth Normal Normal Respiratory Pattern Regular Blood Pressure 169/101 H Blood Pressure [Right Arm] 126/86 Blood Pressure Mean 123 Blood Pressure Mean [Right Arm] 99 Pulse Oximetry 99 99 Oxygen Delivery Method Room Air Room Air Sepsis Recent Fever Within 48 Hours No Sepsis New/Unexplained Change in Mental Status No Sepsis Action Taken by Nursing No Action Required VITALS: Vitals are noted on the nurse's note and reviewed by myself. Vital signs stable. GENERAL: Pleasant female, in no acute distress, nondiaphoretic, well-developed well-nourished. SKIN: Capillary reflex less than 2 seconds. HEENT: Normocephalic. PERRLA. EOMI. Nares patent. Mucous membranes moist. Neck is supple without nuchal rigidity. HEART: Regular rate and rhythm LUNGS: Clear to auscultation bilaterally without wheezes, rales or rhonchi. No retractions or accessory muscle use. ABDOMEN: Positive bowel sounds x 4. Normal tympanic percussion. Soft, diffusely tender to palpation, without masses or organomegaly. Gonzalez sign negative. No guarding or rebound tenderness. no CVA tenderness MUSCULOSKELETAL: No gross musculoskeletal defects. NEURO: Patient was alert and oriented to person place and time. No focal neurological deficits. Course Administered Medications Discontinued Medications Dicyclomine HCl (Dicyclomine Hcl 10 Mg/Ml 2 Ml Amp/Vial) 20 mg IM NOW ONE Stop: 06/15/24 01:23 Last Admin: 06/15/24 01:51 Dose: 20 mg Documented By: DARRION Sodium Chloride (Nss) 1,000 mls @ 999 mls/hr IV .Q1H1M STA Stop: 06/15/24 02:22 Last Admin: 06/15/24 01:50 Dose: 999 mls/hr Documented By: DARRION Famotidine (Pepcid 20mg Iv Push) 20 mg in 5 mls @ 2.5 mls/min IV NOW STA Stop: 06/15/24 01:23 Last Admin: 06/15/24 01:51 Dose: 2.5 mls/min Documented By: DARRION Acetaminophen (Ofirmev) 1,000 mg in 100 mls @ 400 mls/hr IV NOW STA Stop: 06/15/24 01:36 Last Admin: 06/15/24 01:51 Dose: 400 mls/hr Documented By: DARRION Ioversol (Optiray 320 100ml) 94 ml IV ONCE ONE Stop: 06/15/24 02:32 Last Admin: 06/15/24 02:31 Dose: 94 ml Documented By: JEANNETTE Ondansetron HCl (Ondansetron Inj 2 Mg/Ml 2 Ml Vial) 4 mg IV NOW STA Stop: 06/15/24 01:23 Last Admin: 06/15/24 01:51 Dose: 4 mg Documented By: DARRION Medical Decision Making Medical Records Attestation: I reviewed the patient's medical records. Home Medications Current Medication List: was personally reviewed by me Laboratory Data Attestation: I reviewed the patient's lab results. 06/15/24 01:40 06/15/24 01:40 Lab Results 06/15/24 06/15/24 06/15/24 Range/Units 01:40 01:47 01:49 WBC 11.67 H (4.8-10.8) K/ul RBC 4.94 (4.20-5.40) M/uL Hgb 15.0 (12.0-16.0) g/dl POC Hgb 16.0 (12.0-16.0) g/dl Hct 44.7 (37.0-47.0) % POC Hct 47 (37-47) % MCV 90.5 (80.0-100.0) fL MCH 30.4 (25.0-34.0) pg MCHC 33.6 (32.0-36.0) g/dL RDW Std Deviation 41.9 (36.4-46.3) fL RDW Coeff of Jensen 12.9 (11.5-14.5) % Plt Count 198 (130-400) K/uL MPV 9.2 L (9.4-12.4) fL Immature Gran % (Auto) 0.6 % Neut % (Auto) 91.9 % Lymph % (Auto) 4.3 % [place] % (Auto) 2.3 % Eos % (Auto) 0.7 % Baso % (Auto) 0.2 % Neut # (Auto) 10.73 H (1.40-6.50) K/uL Lymph # (Auto) 0.50 L (1.20-3.40) K/uL [place] # (Auto) 0.27 (0.11-0.59) K/uL Eos # (Auto) 0.08 (0.00-0.50) K/uL Baso # (Auto) 0.02 (0.00-0.20) K/uL Immature Gran # (Auto) 0.07 (0.01-0.20) K/uL POC Sodium 138 (135-144) mmol/L Sodium 140 (136-145) mmol/L POC Potassium 3.2 L (3.3-5.0) mmol/L Potassium 3.4 L (3.5-5.1) mmol/L POC Chloride 102 (101-112) mmol/L Chloride 104 (98-107) mmol/L Carbon Dioxide 27 (21-32) mmol/L POC Total CO2 23 L (24-31) mmol/L Anion Gap 9 (3-11) POC Anion Gap 17.0 (16-25) mmol/L POC BUN 11 (7-18) mg/dl BUN 12 (6-23) mg/dl Creatinine 0.90 (0.6-1.2) mg/dl POC Creatinine 0.8 (0.6-1.3) mg/dl Est Cr Clr Drug Dosing Not Reportable eGFR 77.88 BUN/Creatinine Ratio 13.3 (10-20) Glucose 127 H (70-99(Fasting)) mg/dl POC Glucose (other) 122 H (70-99) mg/dl Calcium 8.7 (8.6-10.3) mg/dl POC Ioniz Calcium Gavin 1.11 L (1.12-1.32) mmol/l Magnesium 1.7 (1.7-2.4) mg/dl Total Bilirubin 0.7 (0.2-1.0) mg/dl AST 17 (13-39) U/L ALT 23 (7-52) U/L Alkaline Phosphatase 91 (34-104) U/L Total Protein 6.7 (6.0-8.3) gm/dl Albumin 3.9 (3.4-5.0) gm/dl Globulin 2.8 (2.5-4.0) gm/dl Albumin/Globulin Ratio 1.4 (0.9-2) Lipase 927 H (11-82) U/L HCG, Qual Negative (Negative) Urine Color Dark Yellow Urine Appearance Cloudy A (Clear) Urine pH 5.0 (4.5-7.5) Ur Specific Powers 1.024 (1.000-1.030) Urine Protein Trace H (Negative) Urine Glucose (UA) Negative (Negative) Urine Ketones Trace H (Negative) Urine Blood Negative (Negative) Urine Nitrite Negative (Negative) Urine Bilirubin Negative (Negative) Urine Urobilinogen Negative (Negative) Ur Leukocyte Esterase Negative (Negative) Urine WBC (Auto) 6-10 H (0-5) /hpf Urine RBC (Auto) 0-2 (0-2) /hpf U Hyaline Cast (Auto) 0-2 (0-2) /lpf U Epithel Cells (Auto) 6-10 H (0-2) /hpf Urine Bacteria (Auto) None Seen (None Seen) Stl C. diff Tox B Gene Negative Cdiff Gene (Neg) Adenovirus (PCR) Not Detected (NotDetected) B. pertussis DNA (PCR) Not Detected (NotDetected) B.parapertussis DNA PCR Not Detected (NotDetected) C. pneumoniae DNA (PCR) Not Detected (NotDetected) Coronavirus OC43 (PCR) Not Detected (NotDetected) Coronavirus HKU1 (PCR) Not Detected (NotDetected) Coronavirus 229E (PCR) Not Detected (NotDetected) SARS-CoV-2 (PCR) DETECTED A (NotDetected) Coronavirus NL63 (PCR) Not Detected (NotDetected) Human Metapneumovir PCR Not Detected (NotDetected) Influenza Type A (PCR) Not Detected (NotDetected) Influenza Type B (PCR) Not Detected (NotDetected) M. pneumoniae (PCR) Not Detected (NotDetected) Parainfluenza 1 (PCR) Not Detected (NotDetected) Parainfluenza 2 (PCR) Not Detected (NotDetected) Parainfluenza 3 (PCR) Not Detected (NotDetected) Parainfluenza 4 (PCR) Not Detected (NotDetected) RSV (PCR) Not Detected (NotDetected) Entero/Rhino (PCR) Not Detected (NotDetected) Blood Type A Positive Antibody Screen NEGATIVE Imaging Data Attestation: I personally reviewed and interpreted this imaging study as follows: Radiologist's Impression: Abdomen/Pelvis CT 06/15/24 01:22 EXAM: CT abd pelvis IV con only CLINICAL HISTORY: Client comes to triage in with c/o abdominal pain for most of the day with n/v, with bloody diharrhea. Ongoing since October. 94 ml opti 320 PW TECHNIQUE: Contiguous axial images were obtained from the level of the diaphragm to the pubic symphysis with intravenous contrast. Coronal and sagittal reconstructions were likewise performed and indicated to increase the sensitivity for detecting clinically relevant pathology. If IV contrast material had not been administered, the likelihood of detecting abnormalities relevant to the patient's condition would have been substantially decreased. CT scan was performed according to ALLAN (as low as reasonable achievable). 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 The liver is normal in size and reduced attenuation. No focal liver lesions are seen. There is no intra or extrahepatic biliary ductal dilatation. Hepatic vasculature is patent. The gallbladder is present. The spleen and adrenal glands are unremarkable. Main pancreatic duct is prominent in proximal body and head region (3-4 mm in diameter). However, no obvious pancreatic mass or parenchymal atrophy seen. The kidneys are normal in size and attenuation. There is no hydronephrosis or perinephric fat stranding. No renal calculi or renal masses are identified. The ureters are normal in caliber and no ureteral calculi are seen. The bladder is normal in contour. Pelvic viscera are unremarkable. No focal or diffuse bowel wall thickening or evidence of bowel obstruction is identified. The appendix is visualized in the right lower quadrant and appears within normal limits. Abdominal and pelvic vasculature is patent. No adenopathy or fluid collections are seen. No aggressive appearing osseous lesions are identified. IMPRESSION: Hepatic steatosis-stable. Main pancreatic duct is prominent in proximal body and head region (3-4 mm in diameter). However, no obvious pancreatic mass or parenchymal atrophy seen. Stable finding as compared to prior study. No other new interval abnormality since prior study. Electronically signed by Familia Watson 06-15-2024 03:12 AM MDM Narrative Prior records/ancillary studies reviewed. Triage Nursing notes reviewed. Additional history obtained from the family. The patient's history was concerning for nausea, vomiting, diarrhea, and abdominal pain. Differential diagnosis: Etiologies such as gastroenteritis, food borne illness, infections, appendicitis, diverticulitis, inflammatory bowel disease, obstruction, GI bleed, biliary pathology, as well as others were entertained. Physical examination findings: As above. Abdominal examination revealed tenderness. Vital signs reviewed and revealed stable. ER treatment provided: IV hydration 1 L NSS. Zofran, Pepcid and Bentyl were ordered On reassessment the patient felt better. Patient was tolerating p.o. intake. Diagnostics interpretation by me: The labs Independently Interpreted by myself revealed mild leukocytosis, hypokalemia this is replaced orally, negative urine, negative hCG Elevated lipase Stool positive for norovirus Imaging studies: CT was reviewed and read by radiology as above Consultation: A consultation was placed with the hospitalist. The case was discussed and diagnostics were reviewed. The patient was evaluated in the ER for further treatment. This appears to be consistent with pancreatitis, norovirus, and COVID. Patient was hydrated as above. Medicine was consulted and the case discussed. She will be admitted to the medical service. By the evaluation outlined above emergent etiologies such as appendicitis, diverticulitis, obstruction, cardiac sources, mesenteric ischemia, aortic pathology, inflammatory bowel disease, renal colic, PUD, biliary pathology, UTI, as well as others were deemed relatively unlikely. The pt informed about the findings as listed above. All questions were answered and pleased with the treatment. The chart was completed utilizing [employer] Speech voice recognition software. Grammatical errors, random word insertions, pronoun errors, and incomplete sentences are an occassional consequence of this system due to software limitations, ambient noise, and hardware issues. Any formal questions or concerns about the content, text, or information contained within the body of this dictation should be directly addressed to the physician rehabilitation assistant for clarification. Impression & Plan Pancreatitis, COVID-19, Norovirus Discharge Plan Visit Data Chief Complaint: Abdominal Pain Stated Complaint: ABD PAIN,NAUSEA,VOMITING,DIARRHEA ED Provider: Dianne Trevino ED Midlevel Provider: Cecile Jhons Discharge Problem: Pancreatitis, COVID-19, Norovirus Patient Disposition: Admitted As Inpatient Condition: Good Forms Stand Alone Forms: [facility] [employer] Prescriptions Prescriptions: No Action sumatriptan succinate 6 mg/0.5 mL pen injector 6 mg SUBCUT UD PRN (Reason: Migraine Headache) Ajovy Syringe 225 mg/1.5 mL syringe 225 mg SUBCUT UD Rx Instructions: LAST HAD 11/01/23 - INJECTS EVERY 3 MONTHS zonisamide 50 mg capsule 50 mg PO QAM Rx Instructions: 100mg in the hs 11pm 50 mg in the am 10am ondansetron HCl 4 mg tablet 4 mg PO Q6H PRN (Reason: Nausea) Dificid 200 mg tablet 200 mg PO Q OTHER DAY zonisamide 100 mg Capsule 100 mg PO HS meclizine 25 mg Tablet 25 mg PO TID PRN (Reason: Dizziness) levothyroxine 50 mcg tablet 50 mcg PO DAILYBB fluticasone propionate 50 mcg/actuation [place],Suspension 2 spray INTRANASAL DAILY PRN (Reason: ALLERGIES) Rx Instructions: administer into each nostril Belsomra 10 mg tablet 10 mg PO DAILY Caplyta 42 mg capsule 42 mg PO HS Auvelity 45-105 mg tablet,IR,delayed rel,biphasic 1 tab PO BID Referrals Referrals: Dayanara Green MD [Primary Care Provider] - Discharge Problem: Pancreatitis Qualifiers: Chronicity: acute Pancreatitis type: unspecified pancreatitis type Acute pancreatitis complication: unspecified Qualified Code(s): K85.90 - Acute pancreatitis without necrosis or infection, unspecified
[2024-06-15] MEDS: SODIUM CHLORIDE 0.9% 1,000 ML IV STA (01:50)
[2024-06-15] MEDS: ACETAMINOPHEN 1,000 MG/100 ML VIAL IV STA (01:51)
[2024-06-15] MEDS: ONDANSETRON INJ 2 MG/ML 2 ML VIAL IV STA (01:51)
[2024-06-15] MEDS: FAMOTIDINE 20MG IV PUSH 20 MG/5 ML SYR IV STA (01:51)
[2024-06-15] MEDS: DICYCLOMINE HCL 10 MG/ML 2 ML AMP/VIAL IM ONE (01:51)
[2024-06-15 01:54] LABS: Hematocrit (blood only) 44.7 % (37.0-47.0); Mean Corpuscular Hemoglobin 30.4 pg (25.0-34.0); Mean Corpuscular Hgb Conc 33.6 g/dL (32.0-36.0); Mean Corpuscular Volume 90.5 fL (80.0-100.0); Mean Platelet Volume 9.2 fL (9.4-12.4); Platelet Count 198 K/uL (130-400); RDW Coefficient of Variation 12.9 % (11.5-14.5); RDW Standard Deviation 41.9 fL (36.4-46.3); Red Blood Count 4.94 M/uL (4.20-5.40); White Blood Count 11.67 K/ul (4.8-10.8)
[2024-06-15 01:58] LABS: Appearance Urine Cloudy (Clear); Bacteria Urine Automated None Seen (None Seen); Bilirubin Urine Negative (Negative); Blood Urine Negative (Negative); Cast Urine Automated 0-2 /lpf (0-2); Color Urine Dark Yellow; Glucose Urine UA Negative (Negative); Ketones Urine Trace (Negative); Leukocyte Esterase Urine Negative (Negative); Nitrite Urine Negative (Negative); Protein Urine Trace (Negative); RBC Urine Automated 0-2 /hpf (0-2); Specific Gravity Urine 1.024 (1.000-1.030); Urobilinogen Urine Negative (Negative)
[2024-06-15 02:09] LABS: iSTAT Creatinine 0.8 mg/dl (0.6-1.3); iSTAT Ionized Calcium 1.11 mmol/l (1.12-1.32); iSTAT Potassium 3.2 mmol/L (3.3-5.0)
[2024-06-15 02:13] LABS: Anion Gap 9 (3-11); BUN Creatinine Ratio 13.3 (10-20); Blood Urea Nitrogen 12 mg/dl (6-23); Calcium 8.7 mg/dl (8.6-10.3); Carbon Dioxide 27 mmol/L (21-32); Chloride 104 mmol/L (98-107); Glucose 127 mg/dl (70-99(Fasting)); Potassium 3.4 mmol/L (3.5-5.1); Sodium 140 mmol/L (136-145)
[2024-06-15 02:15] LABS: Basophils # (auto) 0.02 K/uL (0.00-0.20); Basophils % (auto) 0.2 %; Eosinophils # (auto) 0.08 K/uL (0.00-0.50); Eosinophils % (auto) 0.7 %; Immature Granulocytes # (auto) 0.07 K/uL (0.01-0.20); Immature Granulocytes % (auto) 0.6 %; Lymphocytes % (auto) 4.3 %; Monocytes # (auto) 0.27 K/uL (0.11-0.59); Monocytes % (auto) 2.3 %; Neutrophils # (auto) 10.73 K/uL (1.40-6.50); Neutrophils % (auto) 91.9 %
[2024-06-15 02:16] LABS: Pregnancy Test, Serum Negative (Negative)
[2024-06-15 02:31] LABS: Alanine Aminotransferase 23 U/L (7-52); Albumin Globulin Ratio 1.4 (0.9-2); Albumin Level 3.9 gm/dl (3.4-5.0); Alkaline Phosphatase 91 U/L (34-104); Aspartate Aminotransferase 17 U/L (13-39); Bilirubin,Total 0.7 mg/dl (0.2-1.0); Globulin 2.8 gm/dl (2.5-4.0); Lipase 927 U/L (11-82); Total Protein 6.7 gm/dl (6.0-8.3)
[2024-06-15] MEDS: OPTIRAY 320 100ml IV ONE (02:31)
[2024-06-15 02:40] LABS: Magnesium 1.7 mg/dl (1.7-2.4)
[2024-06-15 02:41] LABS: Adenovirus PCR Not Detected (NotDetected); Bordetella parapertussis PCR Not Detected (NotDetected); Bordetella pertussis PCR Not Detected (NotDetected); Chlamydia pneumoniae PCR Not Detected (NotDetected); Coronavirus 229E PCR Not Detected (NotDetected); Coronavirus CoV-2 (COVID19)PCR DETECTED (NotDetected); Coronavirus HKU1 PCR Not Detected (NotDetected); Coronavirus NL63 PCR Not Detected (NotDetected); Coronavirus OC43PCR Not Detected (NotDetected); Human Metapneumovirus PCR Not Detected (NotDetected); Influenza A PCR Not Detected (NotDetected); Influenza B PCR Not Detected (NotDetected); Mycoplasma pneumoniae PCR Not Detected (NotDetected); Parainfluenza Virus 1 PCR Not Detected (NotDetected); Parainfluenza Virus 2 PCR Not Detected (NotDetected); Parainfluenza Virus 3 PCR Not Detected (NotDetected); Parainfluenza Virus 4 PCR Not Detected (NotDetected); Respiratory Syncytial VirusPCR Not Detected (NotDetected); Rhinovirus/Enterovirus PCR Not Detected (NotDetected)
[2024-06-15 03:11] LABS: Adenovirus F 40/41 PCR Not Detected (NotDetected); Astrovirus PCR Not Detected (NotDetected); Campylobacter PCR Not Detected (NotDetected); Cryptosporidium PCR Not Detected (NotDetected); Cyclospora cayetanensis PCR Not Detected (NotDetected); Entamoeba histolytica PCR Not Detected (NotDetected); Enteroaggregative E.coli(EAEC) Not Detected (NotDetected); Enteropathogenic E.coli (EPEC) Not Detected (NotDetected); Enterotoxigenic E.coli (ETEC) Not Detected (NotDetected); Giardia lamblia PCR Not Detected (NotDetected); Plesiomonas shigelloides PCR Not Detected (NotDetected); Rotavirus A PCR Not Detected (NotDetected); Salmonella PCR Not Detected (NotDetected); Sapovirus PCR Not Detected (NotDetected); Shiga-like Toxin E.coli (STEC) Not Detected (NotDetected); Shigella/Enteroinvasive E.coli Not Detected (NotDetected); Vibrio cholerae PCR Not Detected (NotDetected); Vibrio species PCR Not Detected (NotDetected); Yersinia enterocolitica PCR Not Detected (NotDetected)
--- NOTE | 2024-06-15 03:12 | CT Scan Report ---
EXAM: CT abd pelvis IV con only CLINICAL HISTORY: Client comes to triage in with c/o abdominal pain for most of the day with n/v, with bloody diharrhea. Ongoing since October. 94 ml opti 320 PW TECHNIQUE: Contiguous axial images were obtained from the level of the diaphragm to the pubic symphysis with intravenous contrast. Coronal and sagittal reconstructions were likewise performed and indicated to increase the sensitivity for detecting clinically relevant pathology. If IV contrast material had not been administered, the likelihood of detecting abnormalities relevant to the patient's condition would have been substantially decreased. CT scan was performed according to ALARA (as low as reasonable achievable). 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 The liver is normal in size and reduced attenuation. No focal liver lesions are seen. There is no intra or extrahepatic biliary ductal dilatation. Hepatic vasculature is patent. The gallbladder is present. The spleen and adrenal glands are unremarkable. Main pancreatic duct is prominent in proximal body and head region (3-4 mm in diameter). However, no obvious pancreatic mass or parenchymal atrophy seen. The kidneys are normal in size and attenuation. There is no hydronephrosis or perinephric fat stranding. No renal calculi or renal masses are identified. The ureters are normal in caliber and no ureteral calculi are seen. The bladder is normal in contour. Pelvic viscera are unremarkable. No focal or diffuse bowel wall thickening or evidence of bowel obstruction is identified. The appendix is visualized in the right lower quadrant and appears within normal limits. Abdominal and pelvic vasculature is patent. No adenopathy or fluid collections are seen. No aggressive appearing osseous lesions are identified. IMPRESSION: Hepatic steatosis-stable. Main pancreatic duct is prominent in proximal body and head region (3-4 mm in diameter). However, no obvious pancreatic mass or parenchymal atrophy seen. Stable finding as compared to prior study. No other new interval abnormality since prior study. Electronically signed by Familia Watson 06-15-2024 03:12 AM
[2024-06-15 03:20] LABS: Norovirus GI/GII PCR DETECTED (NotDetected)
[2024-06-15] MEDS: SODIUM CHLORIDE 0.9% 1,000 ML IV ONE (03:34)
[2024-06-15] MEDS: PANTOprazole 40 MG/10 ML SYR IV ONE (03:34)
[2024-06-15] MEDS: fentaNYL citrate PF 100 MCG/2 ML VIAL IV PRN (04:06)
[2024-06-15] MEDS: POTASSIUM CHLORIDE CRTAB 20 MEQ TABCR PO STA (05:32)
--- NOTE | 2024-06-15 06:03 | History & Physical Report ---
Date of Service June 15, 2024 Assessment & Plan (1) Norovirus: Plan: 49-year-old female with past medical history significant for hypothyroidism, nonallergic rhinitis, history of partial seizure disorder, intractable migraines, cervical radiculopathy, hyperreflexia, xerophthalmia, recurrent depression, cognitive impairment, history of COVID, history of recurrent C. difficile presents with nausea and vomiting and diarrhea and abdomen pain started today evening. Had several episodes of nausea vomiting and diarrhea . No black stools. Sometimes she has blood in the stools and she says she is on prednisone for colitis for some time now. Denies any chest pain or shortness of breath. No cough. Has runny nose and sore throat. Mild headache. Hemodynamics okay. Nausea vomiting and diarrhea Abdominal pain Stool bio fire positive for norovirus C. difficile toxin negative Supportive care Close monitor Possible pancreatitis Lipase 927 CT scan shows main pancreatic is prominent in proximal body and head region stable findings compared to prior study Will follow repeat lipase levels N.p.o. IV fluids Antiemetics as needed Pain control GI consulted for further recommendations History of recurrent C. difficile Nonspecific colitis Previous CAT scan showed right-sided colitis Colonoscopy in 03/2024 showed inflamed mucosa in the cecum and proximal ascending colon and biopsy was unremarkable Currently on prednisone taper patient states on 25 mg(need to verify) Follow-up with GI COVID Supportive care COVID precautions History of mood disorder, seizure disorder Continue home meds DVT prophylaxis SCDs for now Disposition Medical floor Full code. History of Present Illness Chief Complaint: Nausea vomiting and diarrhea and abdominal pain Primary Care Provider: Dayanara Green MD 49-year-old female with past medical history significant for hypothyroidism, nonallergic rhinitis, history of partial seizure disorder, intractable migraines, cervical radiculopathy, hyperreflexia, xerophthalmia, recurrent depression, cognitive impairment, history of COVID, history of recurrent C. difficile presents with nausea and vomiting and diarrhea and abdomen pain started today evening. Had several episodes of nausea vomiting and diarrhea . No black stools. Sometimes she has blood in the stools and she says she is on prednisone for colitis for some time now. Denies any chest pain or shortness of breath. No cough. Has runny nose and sore throat. Mild headache. Hemodynamics okay. Past medical history. As mentioned above Past surgical history. Right breast lesion excision.. . Colonoscopy. Dental surgery. EGD with endoscopic ultrasound Social history. Quit smoking 2018. Smoked 1 pack a day for 20 years. No alcohol use. No drug use currently. Family history. Father alcoholism. Chronic rhinitis. Arthritis. Heart disease. Hypertension. Mother has allergies. Gastrointestinal disorder. Migraines. Sister has bipolar disorder. Maternal aunt had ovarian cancer. Paternal grandfather had stroke. Paternal grandmother had valvular heart diseas e. Allergies Allergy/AdvReac Type Severity Reaction Status Date / Time metoclopramide [From Reglan] AdvReac Intermediate FELT LIKE Verified 02/03/24 21:25 "SKIN CRAWLING" Home Medications Medication Instructions Recorded Confirmed Type clonazepam 0.5 mg tablet 0.5 mg PO BID PRN Anxiety 06/15/24 06/15/24 History colestipol 1 gram tablet 1 g PO BID 06/15/24 06/15/24 History dextromethorphan IR 45 1 tab PO BID 06/15/24 06/15/24 History mg-bupropion ER 105 mg biphasic tablet (Auvelity) levothyroxine 50 mcg tablet 50 mcg PO DAILY 06/15/24 06/15/24 History lumateperone 42 mg capsule 42 mg PO HS 06/15/24 06/15/24 History (Caplyta) prednisone 10 mg tablet 25 mg PO DAILY 06/15/24 06/15/24 History suvorexant 10 mg tablet (Belsomra) 10 mg PO HS 06/15/24 06/15/24 History zonisamide 50 mg capsule 50 mg PO UD 06/15/24 06/15/24 History Past Med/Surg History Problem List (Updated 06/15/24 @ 03:20 by Cecile Johns PA-C) Norovirus (Acute) COVID-19 (Acute) Pancreatitis (Acute) Syncope Diarrhea (Acute) BRBPR (bright red blood per rectum) Diarrhea (Acute) Dehydration (Acute) History of seizure Hypothyroidism Clostridium difficile infection (Acute) Intractable abdominal pain (Acute) Gastroenteritis (Acute) Migraine (Acute) Medical History (Updated 06/15/24 @ 03:20 by Cecile Johns PA-C) Epilepsy Surgical History Hx of section Social History Smoking Status: Former smoker Tobacco Type: Cigarettes Cigarettes Per Day: 1 pack per day; Smoking End Date: 6 years ago; Second Hand Exposure: Yes; Do You Dip or Chew Tobacco: No; Hx Alcohol Use: No Hx Substance Use: Yes Last Used Substance: Just Prior to Arrival Last Used Substance Other:: Thursday 02/01 Substance Use Type Other:: medical marijuana Preferred Language: Armenian Communication Ability: Effective Braiding Operator Required: No Beliefs That Will Affect Care: None Current Living Situation: Family Current Living Situation Comment: Lives at home with son and boyfriend Other Information That Helps Us Care for You: No Feels Safe at Home: Yes Safety Concerns: Feels Safe At This Time Assistive Devices: Glasses Review of Systems Review of Systems: All systems reviewed & are unremarkable except as noted in HPI & below Physical Exam Physical Exam: General- Not in distress Head- atraumatic Eyes- PERRL. ENT- oropharynx clear Neck- supple, no JVD. Lungs- clear to auscultation no wheezing or crackles Heart- regular rhythm; no murmur, no gallop. Abdomen- normal bowel sounds, soft, diffuse tender no distension Extremities- no pretibial edema, no erythema seen Neuro- alert, oriented PERRL, no facial palsy; no dysarthria; moves extremities Results & Data Results & Data Vital Signs (Past 12 Hours) Vital Signs Temp Pulse Pulse Resp BP BP Pulse Ox 06/15/24 03:49 90 06/15/24 02:36 96 H 18 126/86 99 06/15/24 01:10 36.8 C 107 H 17 169/101 H 99 O2 Del Method 06/15/24 03:49 06/15/24 02:36 Room Air 06/15/24 01:10 Room Air Diagnostic Findings Laboratory Results WBC 11.67 K/ul (4.8-10.8) H 06/15/24 01:40 RBC 4.94 M/uL (4.20-5.40) 06/15/24 01:40 Hgb 15.0 g/dl (12.0-16.0) 06/15/24 01:40 POC Hgb 16.0 g/dl (12.0-16.0) 06/15/24 01:47 Hct 44.7 % (37.0-47.0) 06/15/24 01:40 POC Hct 47 % (37-47) 06/15/24 01:47 MCV 90.5 fL (80.0-100.0) 06/15/24 01:40 MCH 30.4 pg (25.0-34.0) 06/15/24 01:40 MCHC 33.6 g/dL (32.0-36.0) 06/15/24 01:40 RDW Std Deviation 41.9 fL (36.4-46.3) 06/15/24 01:40 RDW Coeff of Jensen 12.9 % (11.5-14.5) 06/15/24 01:40 Plt Count 198 K/uL (130-400) 06/15/24 01:40 MPV 9.2 fL (9.4-12.4) L 06/15/24 01:40 Immature Gran % (Auto) 0.6 % 06/15/24 01:40 Neut % (Auto) 91.9 % 06/15/24 01:40 Lymph % (Auto) 4.3 % 06/15/24 01:40 [place] % (Auto) 2.3 % 06/15/24 01:40 Eos % (Auto) 0.7 % 06/15/24 01:40 Baso % (Auto) 0.2 % 06/15/24 01:40 Neut # (Auto) 10.73 K/uL (1.40-6.50) H 06/15/24 01:40 Lymph # (Auto) 0.50 K/uL (1.20-3.40) L 06/15/24 01:40 [place] # (Auto) 0.27 K/uL (0.11-0.59) 06/15/24 01:40 Eos # (Auto) 0.08 K/uL (0.00-0.50) 06/15/24 01:40 Baso # (Auto) 0.02 K/uL (0.00-0.20) 06/15/24 01:40 Immature Gran # (Auto) 0.07 K/uL (0.01-0.20) 06/15/24 01:40 POC Sodium 138 mmol/L (135-144) 06/15/24 01:47 Sodium 140 mmol/L (136-145) 06/15/24 01:40 POC Potassium 3.2 mmol/L (3.3-5.0) L 06/15/24 01:47 Potassium 3.4 mmol/L (3.5-5.1) L 06/15/24 01:40 POC Chloride 102 mmol/L (101-112) 06/15/24 01:47 Chloride 104 mmol/L (98-107) 06/15/24 01:40 Carbon Dioxide 27 mmol/L (21-32) 06/15/24 01:40 POC Total CO2 23 mmol/L (24-31) L 06/15/24 01:47 Anion Gap 9 (3-11) 06/15/24 01:40 POC Anion Gap 17.0 mmol/L (16-25) 06/15/24 01:47 POC BUN 11 mg/dl (7-18) 06/15/24 01:47 BUN 12 mg/dl (6-23) 06/15/24 01:40 Creatinine 0.90 mg/dl (0.6-1.2) 06/15/24 01:40 POC Creatinine 0.8 mg/dl (0.6-1.3) 06/15/24 01:47 Est Cr Clr Drug Dosing Not Reportable 06/15/24 01:40 eGFR 77.88 06/15/24 01:40 BUN/Creatinine Ratio 13.3 (10-20) 06/15/24 01:40 Glucose 127 mg/dl (70-99(Fasting)) H 06/15/24 01:40 POC Glucose (other) 122 mg/dl (70-99) H 06/15/24 01:47 Calcium 8.7 mg/dl (8.6-10.3) 06/15/24 01:40 POC Ioniz Calcium Gavin 1.11 mmol/l (1.12-1.32) L 06/15/24 01:47 Magnesium 1.7 mg/dl (1.7-2.4) 06/15/24 01:40 Total Bilirubin 0.7 mg/dl (0.2-1.0) 06/15/24 01:40 AST 17 U/L (13-39) 06/15/24 01:40 ALT 23 U/L (7-52) 06/15/24 01:40 Alkaline Phosphatase 91 U/L (34-104) 06/15/24 01:40 Total Protein 6.7 gm/dl (6.0-8.3) 06/15/24 01:40 Albumin 3.9 gm/dl (3.4-5.0) 06/15/24 01:40 Globulin 2.8 gm/dl (2.5-4.0) 06/15/24 01:40 Albumin/Globulin Ratio 1.4 (0.9-2) 06/15/24 01:40 Lipase 927 U/L (11-82) H 06/15/24 01:40 HCG, Qual Negative (Negative) 06/15/24 01:40 Urine Color Dark Yellow 06/15/24 01:40 Urine Appearance Cloudy (Clear) A 06/15/24 01:40 Urine pH 5.0 (4.5-7.5) 06/15/24 01:40 Ur Specific [place] 1.024 (1.000-1.030) 06/15/24 01:40 Urine Protein Trace (Negative) H 06/15/24 01:40 Urine Glucose (UA) Negative (Negative) 06/15/24 01:40 Urine Ketones Trace (Negative) H 06/15/24 01:40 Urine Blood Negative (Negative) 06/15/24 01:40 Urine Nitrite Negative (Negative) 06/15/24 01:40 Urine Bilirubin Negative (Negative) 06/15/24 01:40 Urine Urobilinogen Negative (Negative) 06/15/24 01:40 Ur Leukocyte Esterase Negative (Negative) 06/15/24 01:40 Urine WBC (Auto) 6-10 /hpf (0-5) H 06/15/24 01:40 Urine RBC (Auto) 0-2 /hpf (0-2) 06/15/24 01:40 U Hyaline Cast (Auto) 0-2 /lpf (0-2) 06/15/24 01:40 U Epithel Cells (Auto) 6-10 /hpf (0-2) H 06/15/24 01:40 Urine Bacteria (Auto) None Seen (None Seen) 06/15/24 01:40 Stl C. cayetanensis PCR Not Detected (NotDetected) 06/15/24 01:40 Stool Rotavirus A PCR Not Detected (NotDetected) 06/15/24 01:40 Stl Adenov F 4041 PCR Not Detected (NotDetected) 06/15/24 01:40 Stool Astrovirus (PCR) Not Detected (NotDetected) 06/15/24 01:40 Stool Campylobacter PCR Not Detected (NotDetected) 06/15/24 01:40 Stl C. diff Tox B Gene Negative Cdiff Gene (Neg) 06/15/24 01:40 Stool Cryptosporidium PCR Not Detected (NotDetected) 06/15/24 01:40 Stl E.coli Shiga Tox PCR Not Detected (NotDetected) 06/15/24 01:40 Stl Enterotoxigenic E PCR Not Detected (NotDetected) 06/15/24 01:40 Stool EPEC (PCR) Not Detected (NotDetected) 06/15/24 01:40 Stool EAEC (PCR) Not Detected (NotDetected) 06/15/24 01:40 Stl E. histolytica PCR Not Detected (NotDetected) 06/15/24 01:40 Stool Giardia Lamblia PCR Not Detected (NotDetected) 06/15/24 01:40 Stool Salmonella PCR Not Detected (NotDetected) 06/15/24 01:40 Stool Sapovirus (PCR) Not Detected (NotDetected) 06/15/24 01:40 Stl P. shigelloides PCR Not Detected (NotDetected) 06/15/24 01:40 Stl Shigella/EIEC PCR Not Detected (NotDetected) 06/15/24 01:40 St Y.enterocolitica PCR Not Detected (NotDetected) 06/15/24 01:40 Stool Vibrio (PCR) Not Detected (NotDetected) 06/15/24 01:40 Stl Vibrio cholerae PCR Not Detected (NotDetected) 06/15/24 01:40 Stl Norovirus GI/GII PCR DETECTED (NotDetected) A* 06/15/24 01:40 Ethyl Alcohol mg/dL < 10.0 mg/dl (<10.0) 06/15/24 03:41 Adenovirus (PCR) Not Detected (NotDetected) 06/15/24 01:40 B. pertussis DNA (PCR) Not Detected (NotDetected) 06/15/24 01:40 B.parapertussis DNA PCR Not Detected (NotDetected) 06/15/24 01:40 C. pneumoniae DNA (PCR) Not Detected (NotDetected) 06/15/24 01:40 Coronavirus OC43 (PCR) Not Detected (NotDetected) 06/15/24 01:40 Coronavirus HKU1 (PCR) Not Detected (NotDetected) 06/15/24 01:40 Coronavirus 229E (PCR) Not Detected (NotDetected) 06/15/24 01:40 SARS-CoV-2 (PCR) DETECTED (NotDetected) A 06/15/24 01:40 Coronavirus NL63 (PCR) Not Detected (NotDetected) 06/15/24 01:40 Human Metapneumovir PCR Not Detected (NotDetected) 06/15/24 01:40 Influenza Type A (PCR) Not Detected (NotDetected) 06/15/24 01:40 Influenza Type B (PCR) Not Detected (NotDetected) 06/15/24 01:40 M. pneumoniae (PCR) Not Detected (NotDetected) 06/15/24 01:40 Parainfluenza 1 (PCR) Not Detected (NotDetected) 06/15/24 01:40 Parainfluenza 2 (PCR) Not Detected (NotDetected) 06/15/24 01:40 Parainfluenza 3 (PCR) Not Detected (NotDetected) 06/15/24 01:40 Parainfluenza 4 (PCR) Not Detected (NotDetected) 06/15/24 01:40 RSV (PCR) Not Detected (NotDetected) 06/15/24 01:40 Entero/Rhino (PCR) Not Detected (NotDetected) 06/15/24 01:40 Blood Type A Positive 06/15/24 01:49 Antibody Screen NEGATIVE 06/15/24 01:49 Impressions Abdomen/Pelvis CT 06/15/24 01:22 EXAM: CT abd pelvis IV con only CLINICAL HISTORY: Client comes to triage in with c/o abdominal pain for most of the day with n/v, with bloody diharrhea. Ongoing since October. 94 ml opti 320 PW TECHNIQUE: Contiguous axial images were obtained from the level of the diaphragm to the pubic symphysis with intravenous contrast. Coronal and sagittal reconstructions were likewise performed and indicated to increase the sensitivity for detecting clinically relevant pathology. If IV contrast material had not been administered, the likelihood of detecting abnormalities relevant to the patient's condition would have been substantially decreased. CT scan was performed according to ALARA (as low as reasonable achievable). COMPARISON: 04/25/2024 02:45:00 FOREST MANAGER FINDINGS: The visualized lung bases are clear. The liver is normal in size and reduced attenuation. No focal liver lesions are seen. There is no intra or extrahepatic biliary ductal dilatation. Hepatic vasculature is patent. The gallbladder is present. The spleen and adrenal glands are unremarkable. Main pancreatic duct is prominent in proximal body and head region (3-4 mm in diameter). However, no obvious pancreatic mass or parenchymal atrophy seen. The kidneys are normal in size and attenuation. There is no hydronephrosis or perinephric fat stranding. No renal calculi or renal masses are identified. The ureters are normal in caliber and no ureteral calculi are seen. The bladder is normal in contour. Pelvic viscera are unremarkable. No focal or diffuse bowel wall thickening or evidence of bowel obstruction is identified. The appendix is visualized in the right lower quadrant and appears within normal limits. Abdominal and pelvic vasculature is patent. No adenopathy or fluid collections are seen. No aggressive appearing osseous lesions are identified. IMPRESSION: Hepatic steatosis-stable. Main pancreatic duct is prominent in proximal body and head region (3-4 mm in diameter). However, no obvious pancreatic mass or parenchymal atrophy seen. Stable finding as compared to prior study. No other new interval abnormality since prior study. Electronically signed by Familia Watson 06-15-2024 03:12 AM Code Status & VTE Plan VTE Prophylaxis Plan VTE Prophylaxis will be ordered: Yes
[2024-06-15] MEDS ORDERED: clonazePAM 0.5 MG TAB PO PRN (06:44)
[2024-06-15] MEDS ORDERED: HYDROmorphone INJ 0.5 MG/0.5 ML SYR IV PRN (06:44)
[2024-06-15] MEDS ORDERED: ONDANSETRON INJ 2 MG/ML 2 ML VIAL IV PRN (06:44)
[2024-06-15] MEDS: D5W AND LACTATED RINGERS 1,000 ML IV SCH (07:41)
--- NOTE | 2024-06-15 08:23 | XRay Report ---
XR chest 1V portable CLINICAL HISTORY: COVID 19 TECHNIQUE: Single frontal radiograph of the chest was obtained. Comparison: Comparison is made to chest radiograph 11/02/2023 FINDINGS: No lines and tubes are seen. The cardiomediastinal silhouette is normal. The lungs are clear. No evid ence of pleural effusion or pneumothorax. IMPRESSION: No acute chest disease. ACT 112: Negative or not required by law. Electronically signed by: Rinku Cornejo M.D. 06/15/2024 8:22 AM
[2024-06-15] MEDS: Patient's HEIGHT &/or WEIGHT Needed STA (08:27)
[2024-06-15] MEDS: predniSONE 5 MG TAB PO SCH (08:28)
[2024-06-15] MEDS: ZONISAMIDE 25 MG CAPSULE PO SCH (08:28)
[2024-06-15] MEDS: LEVOTHYROXINE SODIUM 50 MCG TABLET PO SCH (08:29)
[2024-06-15] MEDS: HYDROmorphone INJ 0.5 MG/0.5 ML SYR IV PRN (08:33)
--- NOTE | 2024-06-15 09:22 | Gastrointestinal Consultation ---
Date of Consultation June 15, 2024 Assessment & Plan (1) Norovirus: 49 year old female w/ history of recurrent C. difficile, hypothyroidism, anxiety/mood disorder, seizure disorder, migraine, past tobacco abuse, active workup through [facility] and [facility] for IBD presenting w/ abd pain, nausea/vomiting/diarrhea since midnight admitted w/ COVID-19 infection and norovirus. 1. Norovirus - NPO for bowel rest --> may advance to clear liquids as tolerated - Continue supportive measures - Fluid replacement - Antiemetics PRN 2. COVID-19 - Defer management to primary team 3. Elevated lipase - She does have nausea/vomiting in the setting of known COVID-19 infection and norovirus - CT w/o evidence of pancreatitis but mention of PD prominence - Discuss OP EUS w/ your established GI care team regarding PD prominence - Can be multifactorial as gastroenteritis can cause elevated lipase as well as COVID-19 infection - May repeat lipase/amylase tomorrow Thank you for allowing us to participate in the care of this patient. Please call with any acute changes, questions or concerns. Please see addendum below with additional recommendation from my supervising physician. I spent a total of 60 minutes on the date of service in review of patient's record, and previously obtained information in person and appropriate medical visit, discussion and education of plan, with patient and/or caregiver, placing orders for tests/referral/procedures as medically necessary and documentation of pertinent clinical information in patient's medical records for their visit today. (2) COVID-19: (3) Elevated lipase: Supervising Physician Co-Signing Physician Notes I examined the patient and reviewed the medical record, laboratory data and imaging studies. I agree with the assessment and plan of care as suggested by the advanced practice provider. Patient has followed up by an outpatient editorial manager and she is undergoing a steroid taper for management of questionable IBD she is currently on 25 mg of prednisone and she is scheduled to undergo colonoscopy as an outpatient with the primary editorial manager that she sees on the outside currently she has both norovirus as well as COVID-19 at the current I would just symptomatically treat her with GI soft diet and PPI daily and she can follow-up with her primary editorial manager as an outpatient on CT there was mild prominence of pancreatic duct and she can get an repeat MRI with pancreatic protocol as an outpatient to evaluate if that is a real finding she already has an outpatient editorial manager and she can follow-up with that outpatient GI thank you for allowing us to take part in the care of your patient History of Present Illness Reason for Consultation: n/v/d, pancreatitis? Requesting Physician: Devan Gomez MD Attending Physician: Devan Gomez MD History of Present Illness 49 year old female w/ history of recurrent C. difficile, hypothyroidism, anxiety/mood disorder, seizure disorder, migraine, cognitive impairment as per records, past tobacco abuse presenting w/ abd pain, nausea/vomiting/diarrhea since midnight admitted w/ COVID-19 infection and norovirus. She suggests that she has been doctoring with both [facility] and [facility] for chronic abd pain, bloody diarrhea and that she has been on a tapering course of oral steroids w/ plan to D/C and repeat a colonoscopy at an OP by [facility]. There is clinical concern for IBD per patient. She suggests her symptoms seemed different around midnight when she developed more severe abd cramping followed by large bouts of emesis and diarrhea. Emesis is nonbloody. However she does report bloody diarrhea which is largely unchanged. No black stools. No fever, chills, CP, SOB. Regarding her COVID infection, she has mild URI symptoms - ear discomfort. H&H Lipase 927 + Norovirus + SARS-CoV-2 C.diff 06/15/24 negative gene C.diff 02/03/24 negative gene C.diff 01/25/24 positive started on Dificid C.diff 12/14/23 negative C.diff 11/26/23 negative C.diff 11/10/23 negative toxin, positive gene C.diff 09/22/23: negative CTAP 2023: Hepatic steatosis-stable. Main pancreatic duct is prominent in proximal body and head region (3-4 mm in diameter). However, no obvious pancreatic mass or parenchymal atrophy seen. Stable finding as compared to prior study. No other new interval abnormality since prior study. CTAP 2023: Mild prominence of the bladder wall is nonspecific. Please correlate with urinalysis if concerned for cystitis. Fluid in the colon is suggestive of diarrheal state. Colonoscopy 2021: - One 8 mm polyp at 20 cm proximal to the anus, removed with a hot snare. Resected and retrieved. - The examination was otherwise normal on direct and retroflexion views. Allergies Allergies Allergy/AdvReac Type Severity Reaction Status Date / Time metoclopramide [From Reglan] AdvReac Intermediate FELT LIKE Verified 02/03/24 21:25 "SKIN CRAWLING" Home Medications Medication Instructions Recorded Confirmed Type clonazepam 0.5 mg tablet 0.5 mg PO BID PRN Anxiety 06/15/24 06/15/24 History colestipol 1 gram tablet 1 g PO BID 06/15/24 06/15/24 History dextromethorphan IR 45 1 tab PO BID 06/15/24 06/15/24 History mg-bupropion ER 105 mg biphasic tablet (Auvelity) levothyroxine 50 mcg tablet 50 mcg PO DAILY 06/15/24 06/15/24 History lumateperone 42 mg capsule 42 mg PO HS 06/15/24 06/15/24 History (Caplyta) prednisone 10 mg tablet 25 mg PO DAILY 06/15/24 06/15/24 History suvorexant 10 mg tablet (Belsomra) 10 mg PO HS 06/15/24 06/15/24 History zonisamide 50 mg capsule 50 mg PO UD 06/15/24 06/15/24 History Patient History Medical History (Updated 06/15/24 @ 09:19 by LEEANN Negrete) Epilepsy Surgical History Hx of section Social History Smoking Status: Former smoker Tobacco Type: Cigarettes Cigarettes Per Day: 1 pack per day; Smoking End Date: 6 years ago; Second Hand Exposure: Yes; Do You Dip or Chew Tobacco: No; Hx Alcohol Use: No Hx Substance Use: Yes Last Used Substance: Just Prior to Arrival Last Used Substance Other:: Thursday 02/01 Substance Use Type Other:: medical marijuana Preferred Language: Bahamian Communication Ability: Effective Master Brewer Required: No Beliefs That Will Affect Care: None Current Living Situation: Family Current Living Situation Comment: Lives at home with son and boyfriend Other Information That Helps Us Care for You: No Feels Safe at Home: Yes Safety Concerns: Feels Safe At This Time Assistive Devices: Glasses Review of Systems Review of Systems: All other findings negative except as noted in HPI. Physical Exam Constitutional: WD/WN, vitals as above Respiratory: normal respiratory effort Cardiovascular: Rate/Rhythm: regular rate Gastrointestinal (Abdomen): Percussion/Palpation: + abdomen tender and abdomen soft; no guarding and abdomen not rigid Skin: no rashes, warm and dry Results & Data Vital Signs (Past 12 Hours) Vital Signs Temp Pulse Pulse Resp BP BP BP 06/15/24 06:44 36.8 C 81 18 158/98 H 06/15/24 06:44 36.8 C 81 18 158/98 H 06/15/24 06:00 86 18 155/96 H 06/15/24 03:49 90 06/15/24 02:36 96 H 18 126/86 06/15/24 01:10 36.8 C 107 H 17 169/101 H Pulse Ox O2 Del Method 06/15/24 06:44 97 Room Air 06/15/24 06:44 97 Room Air 06/15/24 06:00 98 Room Air 06/15/24 03:49 06/15/24 02:36 99 Room Air 06/15/24 01:10 99 Room Air Laboratory Results 06/15/24 06/15/24 06/15/24 Range/Units 03:41 01:49 01:47 WBC (4.8-10.8) K/ul RBC (4.20-5.40) M/uL Hgb (12.0-16.0) g/dl POC Hgb 16.0 (12.0-16.0) g/dl Hct (37.0-47.0) % POC Hct 47 (37-47) % MCV (80.0-100.0) fL MCH (25.0-34.0) pg MCHC (32.0-36.0) g/dL RDW Std Deviation (36.4-46.3) fL RDW Coeff of Jensen (11.5-14.5) % Plt Count (130-400) K/uL MPV (9.4-12.4) fL Immature Gran % (Auto) % Neut % (Auto) % Lymph % (Auto) % [place] % (Auto) % Eos % (Auto) % Baso % (Auto) % Neut # (Auto) (1.40-6.50) K/uL Lymph # (Auto) (1.20-3.40) K/uL [place] # (Auto) (0.11-0.59) K/uL Eos # (Auto) (0.00-0.50) K/uL Baso # (Auto) (0.00-0.20) K/uL Immature Gran # (Auto) (0.01-0.20) K/uL POC Sodium 138 (135-144) mmol/L Sodium (136-145) mmol/L POC Potassium 3.2 L (3.3-5.0) mmol/L Potassium (3.5-5.1) mmol/L POC Chloride 102 (101-112) mmol/L Chloride (98-107) mmol/L Carbon Dioxide (21-32) mmol/L POC Total CO2 23 L (24-31) mmol/L Anion Gap (3-11) POC Anion Gap 17.0 (16-25) mmol/L POC BUN 11 (7-18) mg/dl BUN (6-23) mg/dl Creatinine (0.6-1.2) mg/dl POC Creatinine 0.8 (0.6-1.3) mg/dl Est Cr Clr Drug Dosing eGFR BUN/Creatinine Ratio (10-20) Glucose (70-99(Fasting)) mg/dl POC Glucose (other) 122 H (70-99) mg/dl Calcium (8.6-10.3) mg/dl POC Ioniz Calcium Gavin 1.11 L (1.12-1.32) mmol/l Magnesium (1.7-2.4) mg/dl Total Bilirubin (0.2-1.0) mg/dl AST (13-39) U/L ALT (7-52) U/L Alkaline Phosphatase (34-104) U/L Total Protein (6.0-8.3) gm/dl Albumin (3.4-5.0) gm/dl Globulin (2.5-4.0) gm/dl Albumin/Globulin Ratio (0.9-2) Lipase (11-82) U/L HCG, Qual (Negative) Urine Color Urine Appearance (Clear) Urine pH (4.5-7.5) Ur Specific [place] (1.000-1.030) Urine Protein (Negative) Urine Glucose (UA) (Negative) Urine Ketones (Negative) Urine Blood (Negative) Urine Nitrite (Negative) Urine Bilirubin (Negative) Urine Urobilinogen (Negative) Ur Leukocyte Esterase (Negative) Urine WBC (Auto) (0-5) /hpf Urine RBC (Auto) (0-2) /hpf U Hyaline Cast (Auto) (0-2) /lpf U Epithel Cells (Auto) (0-2) /hpf Urine Bacteria (Auto) (None Seen) Stl C. cayetanensis PCR (NotDetected) Stool Rotavirus A PCR (NotDetected) Stl Adenov F 40/41 PCR (NotDetected) Stool Astrovirus (PCR) (NotDetected) Stool Campylobacter PCR (NotDetected) Stl C. diff Tox B Gene (Neg) Stool Cryptosporidium PCR (NotDetected) Stl E.coli Shiga Tox PCR (NotDetected) Stl Enterotoxigenic E PCR (NotDetected) Stool EPEC (PCR) (NotDetected) Stool EAEC (PCR) (NotDetected) Stl E. histolytica PCR (NotDetected) Stool Giardia Lamblia PCR (NotDetected) Stool Salmonella PCR (NotDetected) Stool Sapovirus (PCR) (NotDetected) Stl P. shigelloides PCR (NotDetected) Stl Shigella/EIEC PCR (NotDetected) St Y.enterocolitica PCR (NotDetected) Stool Vibrio (PCR) (NotDetected) Stl Vibrio cholerae PCR (NotDetected) Stl Norovirus GI/GII PCR (NotDetected) Ethyl Alcohol mg/dL < 10.0 (<10.0) mg/dl Adenovirus (PCR) (NotDetected) B. pertussis DNA (PCR) (NotDetected) B.parapertussis DNA PCR (NotDetected) C. pneumoniae DNA (PCR) (NotDetected) Coronavirus OC43 (PCR) (NotDetected) Coronavirus HKU1 (PCR) (NotDetected) Coronavirus 229E (PCR) (NotDetected) SARS-CoV-2 (PCR) (NotDetected) Coronavirus NL63 (PCR) (NotDetected) Human Metapneumovir PCR (NotDetected) Influenza Type A (PCR) (NotDetected) Influenza Type B (PCR) (NotDetected) M. pneumoniae (PCR) (NotDetected) Parainfluenza 1 (PCR) (NotDetected) Parainfluenza 2 (PCR) (NotDetected) Parainfluenza 3 (PCR) (NotDetected) Parainfluenza 4 (PCR) (NotDetected) RSV (PCR) (NotDetected) Entero/Rhino (PCR) (NotDetected) Blood Type A Positive Antibody Screen NEGATIVE 06/15/24 Range/Units 01:40 WBC 11.67 H (4.8-10.8) K/ul RBC 4.94 (4.20-5.40) M/uL Hgb 15.0 (12.0-16.0) g/dl POC Hgb (12.0-16.0) g/dl Hct 44.7 (37.0-47.0) % POC Hct (37-47) % MCV 90.5 (80.0-100.0) fL MCH 30.4 (25.0-34.0) pg MCHC 33.6 (32.0-36.0) g/dL RDW Std Deviation 41.9 (36.4-46.3) fL RDW Coeff of Jensen 12.9 (11.5-14.5) % Plt Count 198 (130-400) K/uL MPV 9.2 L (9.4-12.4) fL Immature Gran % (Auto) 0.6 % Neut % (Auto) 91.9 % Lymph % (Auto) 4.3 % [place] % (Auto) 2.3 % Eos % (Auto) 0.7 % Baso % (Auto) 0.2 % Neut # (Auto) 10.73 H (1.40-6.50) K/uL Lymph # (Auto) 0.50 L (1.20-3.40) K/uL [place] # (Auto) 0.27 (0.11-0.59) K/uL Eos # (Auto) 0.08 (0.00-0.50) K/uL Baso # (Auto) 0.02 (0.00-0.20) K/uL Immature Gran # (Auto) 0.07 (0.01-0.20) K/uL POC Sodium (135-144) mmol/L Sodium 140 (136-145) mmol/L POC Potassium (3.3-5.0) mmol/L Potassium 3.4 L (3.5-5.1) mmol/L POC Chloride (101-112) mmol/L Chloride 104 (98-107) mmol/L Carbon Dioxide 27 (21-32) mmol/L POC Total CO2 (24-31) mmol/L Anion Gap 9 (3-11) POC Anion Gap (16-25) mmol/L POC BUN (7-18) mg/dl BUN 12 (6-23) mg/dl Creatinine 0.90 (0.6-1.2) mg/dl POC Creatinine (0.6-1.3) mg/dl Est Cr Clr Drug Dosing Not Reportable eGFR 77.88 BUN/Creatinine Ratio 13.3 (10-20) Glucose 127 H (70-99(Fasting)) mg/dl POC Glucose (other) (70-99) mg/dl Calcium 8.7 (8.6-10.3) mg/dl POC Ioniz Calcium Gavin (1.12-1.32) mmol/l Magnesium 1.7 (1.7-2.4) mg/dl Total Bilirubin 0.7 (0.2-1.0) mg/dl AST 17 (13-39) U/L ALT 23 (7-52) U/L Alkaline Phosphatase 91 (34-104) U/L Total Protein 6.7 (6.0-8.3) gm/dl Albumin 3.9 (3.4-5.0) gm/dl Globulin 2.8 (2.5-4.0) gm/dl Albumin/Globulin Ratio 1.4 (0.9-2) Lipase 927 H (11-82) U/L HCG, Qual Negative (Negative) Urine Color Dark Yellow Urine Appearance Cloudy A (Clear) Urine pH 5.0 (4.5-7.5) Ur Specific [place] 1.024 (1.000-1.030) Urine Protein Trace H (Negative) Urine Glucose (UA) Negative (Negative) Urine Ketones Trace H (Negative) Urine Blood Negative (Negative) Urine Nitrite Negative (Negative) Urine Bilirubin Negative (Negative) Urine Urobilinogen Negative (Negative) Ur Leukocyte Esterase Negative (Negative) Urine WBC (Auto) 6-10 H (0-5) /hpf Urine RBC (Auto) 0-2 (0-2) /hpf U Hyaline Cast (Auto) 0-2 (0-2) /lpf U Epithel Cells (Auto) 6-10 H (0-2) /hpf Urine Bacteria (Auto) None Seen (None Seen) Stl C. cayetanensis PCR Not Detected (NotDetected) Stool Rotavirus A PCR Not Detected (NotDetected) Stl Adenov F 40/41 PCR Not Detected (NotDetected) Stool Astrovirus (PCR) Not Detected (NotDetected) Stool Campylobacter PCR Not Detected (NotDetected) Stl C. diff Tox B Gene Negative Cdiff Gene (Neg) Stool Cryptosporidium PCR Not Detected (NotDetected) Stl E.coli Shiga Tox PCR Not Detected (NotDetected) Stl Enterotoxigenic E PCR Not Detected (NotDetected) Stool EPEC (PCR) Not Detected (NotDetected) Stool EAEC (PCR) Not Detected (NotDetected) Stl E. histolytica PCR Not Detected (NotDetected) Stool Giardia Lamblia PCR Not Detected (NotDetected) Stool Salmonella PCR Not Detected (NotDetected) Stool Sapovirus (PCR) Not Detected (NotDetected) Stl P. shigelloides PCR Not Detected (NotDetected) Stl Shigella/EIEC PCR Not Detected (NotDetected) St Y.enterocolitica PCR Not Detected (NotDetected) Stool Vibrio (PCR) Not Detected (NotDetected) Stl Vibrio cholerae PCR Not Detected (NotDetected) Stl Norovirus GI/GII PCR DETECTED A* (NotDetected) Ethyl Alcohol mg/dL (<10.0) mg/dl Adenovirus (PCR) Not Detected (NotDetected) B. pertussis DNA (PCR) Not Detected (NotDetected) B.parapertussis DNA PCR Not Detected (NotDetected) C. pneumoniae DNA (PCR) Not Detected (NotDetected) Coronavirus OC43 (PCR) Not Detected (NotDetected) Coronavirus HKU1 (PCR) Not Detected (NotDetected) Coronavirus 229E (PCR) Not Detected (NotDetected) SARS-CoV-2 (PCR) DETECTED A (NotDetected) Coronavirus NL63 (PCR) Not Detected (NotDetected) Human Metapneumovir PCR Not Detected (NotDetected) Influenza Type A (PCR) Not Detected (NotDetected) Influenza Type B (PCR) Not Detected (NotDetected) M. pneumoniae (PCR) Not Detected (NotDetected) Parainfluenza 1 (PCR) Not Detected (NotDetected) Parainfluenza 2 (PCR) Not Detected (NotDetected) Parainfluenza 3 (PCR) Not Detected (NotDetected) Parainfluenza 4 (PCR) Not Detected (NotDetected) RSV (PCR) Not Detected (NotDetected) Entero/Rhino (PCR) Not Detected (NotDetected) Blood Type Antibody Screen PG Care Time/CCT Total # of Minutes Spent Total Time Spent with Patient: Total time spent is greater than 50% in coordination of care (as documented) at patient's floor/unit and/or counseling patient: Coding Level of Care Code 95073 INT INP/OBS CARE 2/55MIN Diagnoses Norovirus A08.11 COVID-19 U07.1 Elevated lipase R74.8
[2024-06-15 10:37] LABS: Basophils # (auto) 0.03 K/uL (0.00-0.20); Basophils % (auto) 0.4 %; Eosinophils # (auto) 0.08 K/uL (0.00-0.50); Eosinophils % (auto) 0.9 %; Hematocrit (blood only) 38.6 % (37.0-47.0); Hemoglobin 12.9 g/dl (12.0-16.0); Immature Granulocytes # (auto) 0.05 K/uL (0.01-0.20); Immature Granulocytes % (auto) 0.6 %; Lymphocytes # (auto) 0.39 K/uL (1.20-3.40); Lymphocytes % (auto) 4.6 %; Mean Corpuscular Hemoglobin 30.2 pg (25.0-34.0); Mean Corpuscular Hgb Conc 33.4 g/dL (32.0-36.0); Mean Corpuscular Volume 90.4 fL (80.0-100.0); Mean Platelet Volume 9.1 fL (9.4-12.4); Monocytes # (auto) 0.36 K/uL (0.11-0.59); Monocytes % (auto) 4.2 %; Neutrophils # (auto) 7.62 K/uL (1.40-6.50); Neutrophils % (auto) 89.3 %; Platelet Count 154 K/uL (130-400); RDW Coefficient of Variation 13.3 % (11.5-14.5); RDW Standard Deviation 43.7 fL (36.4-46.3); Red Blood Count 4.27 M/uL (4.20-5.40); White Blood Count 8.53 K/ul (4.8-10.8)
[2024-06-15 10:54] LABS: BUN Creatinine Ratio 14.3 (10-20); C Reactive Protein 6.84 mg/dl (0-0.5); Calcium 7.5 mg/dl (8.6-10.3); Magnesium 1.8 mg/dl (1.7-2.4); Potassium 3.5 mmol/L (3.5-5.1)
[2024-06-15] MEDS ORDERED: diphenhydrAMINE HCl 12.5 MG/5 ML UDC PO PRN (11:12)
[2024-06-15] MEDS ORDERED: guaiFENesin/DEXTROM SYRUP 200MG/20MG 10ML UDC PO PRN (11:38)
[2024-06-15] MEDS: FLUTICASONE PROPIONATE NA SPR 16 GM BTL SCH (11:40)
[2024-06-15] MEDS: LORATADINE 10 MG TAB PO SCH (11:40)
--- NOTE | 2024-06-15 13:52 | Hospitalist Progress Note ---
Date of Service June 15, 2024 Assessment & Plan (1) Norovirus: Plan: Patient is a 49 yr female with past medical history significant for hypothyroidism, nonallergic rhinitis, history of partial seizure disorder, intractable migraines, cervical radiculopathy, hyperreflexia, xerophthalmia, recurrent depression, cognitive impairment, history of COVID, history of recurrent C. difficile presents with nausea and vomiting and diarrhea and abdomen pain started today evening. Had several episodes of nausea vomiting and diarrhea. No black stools. Sometimes she has blood in the stools and she says she is on prednisone for colitis for some time now. Denies any chest pain or shortness of breath. No cough. Has runny nose and sore throat. Mild headache. Nausea vomiting and diarrhea Abdominal pain Secondary to norovirus infection H/O C diff Suspected inflammatory bowel disease --CT ABD:Hepatic steatosis-stable. Main pancreatic duct is prominent in proximal body and head region (3-4 mm in diameter). However, no obvious pancreatic mass or parenchymal atrophy seen. Stable finding as compared to prior study. No other new interval abnormality since prior study. -- Stool for C. difficile negative --Stool PCR positive for norovirus --Continue IV fluids --Clear liquid diet, advance as tolerated --Appreciate GI input: Needs follow-up with primary tent finisher for outpatient colonoscopy -Continue tapering course of prednisone Pancreatic duct abnormality on CT Suspected pancreatitis--although no findings of pancreatitis on CT Lipase 927>> 202 CT scan as above Pain control, antiemetics as needed Advance diet as tolerated Received IV fluids GI on board COVID 19 infection Supportive care COVID precautions Saturating well on room air Antitussives as needed History of mood disorder, seizure disorder Continue home meds as able DVT prophylaxis SCDs Encouraged to ambulate CODE STATUS Full code Disposition Expected discharge home when stable Admission and Anticipated Discharge Date Admission Date: June 15, 2024 Subjective Patient is seen and examined at bedside Denies nausea, abdominal pain today Still having diarrhea Reports minimal cough which she attributes to postnasal drip Denies any chest pain, dizziness, dyspnea Saturating well on room air Review of Systems Review of Systems: All systems reviewed & are unremarkable except as noted in Subjective Physical Exam Physical Exam: Physical Exam: Vitals signs as noted above General Appearance:Moderately built and nourished, no apparent distress Head: normocephalic, Atraumatic Eyes: normal inspection, EOMI Neck: supple, Trachea midline Respiratory/Chest: Normal breath sounds, CTA, No accessory muscle use Cardiovascular: S1, S2, No murmur Abdomen/GI:Soft, mild generalized tender, Bowel sounds present Extremities/Musculoskeletal:normal inspection, no edema Neurologic/Psych:AAOX3, grossly no focal neurological deficits Skin: normal color, warm Results & Data Results & Data Vital Signs (Past 12 Hours) Vital Signs Temp Pulse Pulse Resp BP BP Pulse Ox 06/15/24 08:30 06/15/24 06:44 36.8 C 81 18 158/98 H 97 06/15/24 06:44 36.8 C 81 18 158/98 H 97 06/15/24 06:00 86 18 155/96 H 98 06/15/24 03:49 90 06/15/24 02:36 96 H 18 126/86 99 O2 Del Method 06/15/24 08:30 Room Air 06/15/24 06:44 Room Air 06/15/24 06:44 Room Air 06/15/24 06:00 Room Air 06/15/24 03:49 06/15/24 02:36 Room Air Laboratory Results Short CBC 06/15/24 06/15/24 Range/Units 01:40 10:06 WBC 11.67 H 8.53 (4.8-10.8) K/ul Hgb 15.0 12.9 (12.0-16.0) g/dl Hct 44.7 38.6 (37.0-47.0) % Plt Count 198 154 (130-400) K/uL BMP 06/15/24 06/15/24 01:40 10:06 Sodium 140 142 Potassium 3.4 L 3.5 Chloride 104 110 H Carbon Dioxide 27 26 BUN 12 10 Creatinine 0.90 0.70 Glucose 127 H 106 H Calcium 8.7 7.5 L Liver Function 06/15/24 Range/Units 01:40 Total Bilirubin 0.7 (0.2-1.0) mg/dl AST 17 (13-39) U/L ALT 23 (7-52) U/L Alkaline Phosphatase 91 (34-104) U/L Albumin 3.9 (3.4-5.0) gm/dl Urine 06/15/24 Range/Units 01:40 Urine Color Dark Yellow Urine Appearance Cloudy A (Clear) Urine pH 5.0 (4.5-7.5) Ur Specific [place] 1.024 (1.000-1.030) Urine Protein Trace H (Negative) Urine Glucose (UA) Negative (Negative)
[2024-06-15] MEDS: ZONISAMIDE 100 MG CAPSULE PO SCH (20:23)
[2024-06-15] MEDS: ACETAMINOPHEN 1,000 MG/100 ML VIAL IV PRN (20:23)
[2024-06-16 09:03] VITALS: PULSE 79; RESP 16; TEMP 98.2; O2SAT 99
[2024-06-16] MEDS: amLODIPine BESYLATE 5 MG TAB PO SCH (09:10)
[2024-06-16 09:20] LABS: Hematocrit (blood only) 35.3 % (37.0-47.0); Hemoglobin 11.9 g/dl (12.0-16.0); Mean Corpuscular Hemoglobin 30.8 pg (25.0-34.0); Mean Corpuscular Hgb Conc 33.7 g/dL (32.0-36.0); Mean Corpuscular Volume 91.5 fL (80.0-100.0); Mean Platelet Volume 9.1 fL (9.4-12.4); Platelet Count 163 K/uL (130-400); RDW Standard Deviation 42.9 fL (36.4-46.3); Red Blood Count 3.86 M/uL (4.20-5.40); White Blood Count 6.65 K/ul (4.8-10.8)
[2024-06-16 09:30] LABS: BUN Creatinine Ratio 6.2 (10-20); Calcium 8.2 mg/dl (8.6-10.3); Creatinine Clr Calc Pharmacy 99.1 ml/min; Magnesium 1.8 mg/dl (1.7-2.4); Potassium 3.5 mmol/L (3.5-5.1)
[2024-06-16] MEDS ORDERED: ACETAMINOPHEN 325 MG TAB PO PRN (10:53)
[2024-06-16 12:33] VITALS: BP 166/111
[2024-06-16] MEDS ORDERED: hydrALAZINE 10 MG TAB PO PRN (12:38)
--- NOTE | 2024-06-16 13:08 | Hospitalist Progress Note ---
Date of Service June 16, 2024 Assessment & Plan (1) Norovirus: Plan: Patient is a 49 yr female with past medical history significant for hypothyroidism, nonallergic rhinitis, history of partial seizure disorder, intractable migraines, cervical radiculopathy, hyperreflexia, xerophthalmia, recurrent depression, cognitive impairment, history of COVID, history of recurrent C. difficile presents with nausea and vomiting and diarrhea and abdomen pain started today evening. Had several episodes of nausea vomiting and diarrhea. No black stools. Sometimes she has blood in the stools and she says she is on prednisone for colitis for some time now. Denies any chest pain or shortness of breath. No cough. Has runny nose and sore throat. Mild headache. Nausea vomiting and diarrhea Abdominal pain Secondary to norovirus infection H/O C diff Suspected inflammatory bowel disease --CT ABD:Hepatic steatosis-stable. Main pancreatic duct is prominent in proximal body and head region (3-4 mm in diameter). However, no obvious pancreatic mass or parenchymal atrophy seen. Stable finding as compared to prior study. No other new interval abnormality since prior study. -- Stool for C. difficile negative --Stool PCR positive for norovirus -- Received IV fluid -- Tolerated diet, advance to regular diet --Appreciate GI input: Needs follow-up with primary forensic anthropologist for outpatient colonoscopy -Continue tapering course of prednisone as previously prescribed Advised to follow-up with PCP, gastroenterology on discharge Pancreatic duct abnormality on CT Suspected pancreatitis--although no findings of pancreatitis on CT Lipase 927>> 202>>19 CT scan as above Pain control, antiemetics as needed Advance diet as tolerated Received IV fluids GI on board COVID 19 infection Supportive care COVID precautions Saturating well on room air Antitussives as needed Hypertension Likely situational Steroids likely contributing Started on amlodipine 5 mg daily Advised to monitor blood pressure regularly at home History of mood disorder, seizure disorder Continue home meds as able DVT prophylaxis SCDs Encouraged to ambulate CODE STATUS Full code Disposition Home Admission and Anticipated Discharge Date Admission Date: June 15, 2024 Subjective Patient is seen and examined at bedside States feeling a lot better today No nausea, vomiting Diarrhea improving Abdominal pain much improved Tolerating diet Cough is improving as well No other complaints next Denies any chest pain, dizziness, dyspnea Saturating well on room air Prefers to be discharged home today Review of Systems Review of Systems: All systems reviewed & are unremarkable except as noted in Subjective Physical Exam Physical Exam: Physical Exam: Vitals signs as noted above General Appearance:Moderately built and nourished, no apparent distress Head: normocephalic, Atraumatic Eyes: normal inspection, EOMI Neck: supple, Trachea midline Respiratory/Chest: Normal breath sounds, CTA, No accessory muscle use Cardiovascular: S1, S2, No murmur Abdomen/GI:Soft, mild tender, Bowel sounds present, no guarding or rigidity Extremities/Musculoskeletal:normal inspection, no edema Neurologic/Psych:AAOX3, grossly no focal neurological deficits Skin: normal color, warm Results & Data Results & Data Vital Signs (Past 12 Hours) Vital Signs Temp Pulse Resp BP BP Pulse Ox O2 Del Method 06/16/24 12:33 162/111 H 166/111 H 06/16/24 09:15 Room Air 06/16/24 09:01 36.8 C 79 16 178/104 H 169/108 H 99 Room Air Laboratory Results Short CBC 06/16/24 Range/Units 08:44 WBC 6.65 (4.8-10.8) K/ul Hgb 11.9 L (12.0-16.0) g/dl Hct 35.3 L (37.0-47.0) % Plt Count 163 (130-400) K/uL BMP 06/16/24 08:44 Sodium 139 Potassium 3.5 Chloride 108 H Carbon Dioxide 27 BUN 4 L Creatinine 0.65 Glucose 100 H Calcium 8.2 L
--- NOTE | 2024-06-16 13:35 | Communication Note ---
Date of Service: June 16, 2024 By CMS guidelines, a determination that the admission or continued stay is not medically necessary has been made by a member of the UR committee and shahida awad for this hospital stay, therefore a Code 44 will be completed and the Inpatient admission will be changed to outpatient.
--- NOTE | 2024-06-16 13:37 | Discharge Summary ---
Date of Service June 16, 2024 Admission HPI Per Admitting Provider 49-year-old female with past medical history significant for hypothyroidism, nonallergic rhinitis, history of partial seizure disorder, intractable migraines, cervical radiculopathy, hyperreflexia, xerophthalmia, recurrent depression, cognitive impairment, history of COVID, history of recurrent C. difficile presents with nausea and vomiting and diarrhea and abdomen pain started today evening. Had several episodes of nausea vomiting and diarrhea . No black stools. Sometimes she has blood in the stools and she says she is on prednisone for colitis for some time now. Denies any chest pain or shortness of breath. No cough. Has runny nose and sore throat. Mild headache. Hemodynamics okay. Past medical history. As mentioned above Past surgical history. Right breast lesion excision.. . Colonoscopy. Dental surgery. EGD with endoscopic ultrasound Social history. Quit smoking 2018. Smoked 1 pack a day for 20 years. No alcohol use. No drug use currently. Family history. Father alcoholism. Chronic rhinitis. Arthritis. Heart disease. Hypertension. Mother has allergies. Gastrointestinal disorder. Migraines. Sister has bipolar disorder. Maternal aunt had ovarian cancer. Paternal grandfather had stroke. Paternal grandmother had valvular heart disease. Admission Exam Per Admitting Provider General- Not in distress Head- atraumatic Eyes- PERRL. ENT- oropharynx clear Neck- supple, no JVD. Lungs- clear to auscultation no wheezing or crackles Heart- regular rhythm; no murmur, no gallop. Abdomen- normal bowel sounds, soft, diffuse tender no distension Extremities- no pretibial edema, no erythema seen Neuro- alert, oriented PERRL, no facial palsy; no dysarthria; moves extremities Principal Diagnosis Norovirus infection COVID 19 infection Hypertension Pancreatic duct abnormality on CT Scan Discharge Data Allergies Allergy/AdvReac Type Severity Reaction Status Date / Time metoclopramide [From Reglan] AdvReac Intermediate FELT LIKE Verified 02/03/24 21:25 "SKIN CRAWLING" Consultations 06/15/24 03:13 ED Decision to Admit Stat 06/15/24 08:00 Consult Gastroenterology Routine Procedures Performed Laboratory Results WBC 6.65 K/ul (4.8-10.8) 06/16/24 08:44 RBC 3.86 M/uL (4.20-5.40) L 06/16/24 08:44 Hgb 11.9 g/dl (12.0-16.0) L 06/16/24 08:44 POC Hgb 16.0 g/dl (12.0-16.0) 06/15/24 01:47 Hct 35.3 % (37.0-47.0) L 06/16/24 08:44 POC Hct 47 % (37-47) 06/15/24 01:47 MCV 91.5 fL (80.0-100.0) 06/16/24 08:44 MCH 30.8 pg (25.0-34.0) 06/16/24 08:44 MCHC 33.7 g/dL (32.0-36.0) 06/16/24 08:44 RDW Std Deviation 42.9 fL (36.4-46.3) 06/16/24 08:44 RDW Coeff of Jensen 13.0 % (11.5-14.5) 06/16/24 08:44 Plt Count 163 K/uL (130-400) 06/16/24 08:44 MPV 9.1 fL (9.4-12.4) L 06/16/24 08:44 Immature Gran % (Auto) 0.6 % 06/15/24 10:06 Neut % (Auto) 89.3 % 06/15/24 10:06 Lymph % (Auto) 4.6 % 06/15/24 10:06 [place] % (Auto) 4.2 % 06/15/24 10:06 Eos % (Auto) 0.9 % 06/15/24 10:06 Baso % (Auto) 0.4 % 06/15/24 10:06 Neut # (Auto) 7.62 K/uL (1.40-6.50) H 06/15/24 10:06 Lymph # (Auto) 0.39 K/uL (1.20-3.40) L 06/15/24 10:06 [place] # (Auto) 0.36 K/uL (0.11-0.59) 06/15/24 10:06 Eos # (Auto) 0.08 K/uL (0.00-0.50) 06/15/24 10:06 Baso # (Auto) 0.03 K/uL (0.00-0.20) 06/15/24 10:06 Immature Gran # (Auto) 0.05 K/uL (0.01-0.20) 06/15/24 10:06 POC Sodium 138 mmol/L (135-144) 06/15/24 01:47 Sodium 139 mmol/L (136-145) 06/16/24 08:44 POC Potassium 3.2 mmol/L (3.3-5.0) L 06/15/24 01:47 Potassium 3.5 mmol/L (3.5-5.1) 06/16/24 08:44 POC Chloride 102 mmol/L (101-112) 06/15/24 01:47 Chloride 108 mmol/L (98-107) H 06/16/24 08:44 Carbon Dioxide 27 mmol/L (21-32) 06/16/24 08:44 POC Total CO2 23 mmol/L (24-31) L 06/15/24 01:47 Anion Gap 4 (3-11) 06/16/24 08:44 POC Anion Gap 17.0 mmol/L (16-25) 06/15/24 01:47 POC BUN 11 mg/dl (7-18) 06/15/24 01:47 BUN 4 mg/dl (6-23) L 06/16/24 08:44 Creatinine 0.65 mg/dl (0.6-1.2) 06/16/24 08:44 POC Creatinine 0.8 mg/dl (0.6-1.3) 06/15/24 01:47 Est Cr Clr Drug Dosing 99.1 ml/min 06/16/24 08:44 eGFR 107.20 06/16/24 08:44 BUN/Creatinine Ratio 6.2 (10-20) L 06/16/24 08:44 Glucose 100 mg/dl (70-99(Fasting)) H 06/16/24 08:44 POC Glucose (other) 122 mg/dl (70-99) H 06/15/24 01:47 Calcium 8.2 mg/dl (8.6-10.3) L 06/16/24 08:44 POC Ioniz Calcium Gavin 1.11 mmol/l (1.12-1.32) L 06/15/24 01:47 Magnesium 1.8 mg/dl (1.7-2.4) 06/16/24 08:44 Total Bilirubin 0.7 mg/dl (0.2-1.0) 06/15/24 01:40 AST 17 U/L (13-39) 06/15/24 01:40 ALT 23 U/L (7-52) 06/15/24 01:40 Alkaline Phosphatase 91 U/L (34-104) 06/15/24 01:40 C-Reactive Protein 6.84 mg/dl (0-0.5) H 06/15/24 10:06 Total Protein 6.7 gm/dl (6.0-8.3) 06/15/24 01:40 Albumin 3.9 gm/dl (3.4-5.0) 06/15/24 01:40 Globulin 2.8 gm/dl (2.5-4.0) 06/15/24 01:40 Albumin/Globulin Ratio 1.4 (0.9-2) 06/15/24 01:40 Lipase 19 U/L (11-82) 06/16/24 08:44 Procalcitonin 0.41 ng/ml (0-0.5) 06/16/24 08:44 HCG, Qual Negative (Negative) 06/15/24 01:40 Urine Color Dark Yellow 06/15/24 01:40 Urine Appearance Cloudy (Clear) A 06/15/24 01:40 Urine pH 5.0 (4.5-7.5) 06/15/24 01:40 Ur Specific [place] 1.024 (1.000-1.030) 06/15/24 01:40 Urine Protein Trace (Negative) H 06/15/24 01:40 Urine Glucose (UA) Negative (Negative) 06/15/24 01:40 Urine Ketones Trace (Negative) H 06/15/24 01:40 Urine Blood Negative (Negative) 06/15/24 01:40 Urine Nitrite Negative (Negative) 06/15/24 01:40 Urine Bilirubin Negative (Negative) 06/15/24 01:40 Urine Urobilinogen Negative (Negative) 06/15/24 01:40 Ur Leukocyte Esterase Negative (Negative) 06/15/24 01:40 Urine WBC (Auto) 6-10 /hpf (0-5) H 06/15/24 01:40 Urine RBC (Auto) 0-2 /hpf (0-2) 06/15/24 01:40 U Hyaline Cast (Auto) 0-2 /lpf (0-2) 06/15/24 01:40 U Epithel Cells (Auto) 6-10 /hpf (0-2) H 06/15/24 01:40 Urine Bacteria (Auto) None Seen (None Seen) 06/15/24 01:40 Stl C. cayetanensis PCR Not Detected (NotDetected) 06/15/24 01:40 Stool Rotavirus A PCR Not Detected (NotDetected) 06/15/24 01:40 Stl Adenov F PCR Not Detected (NotDetected) 06/15/24 01:40 Stool Astrovirus (PCR) Not Detected (NotDetected) 06/15/24 01:40 Stool Campylobacter PCR Not Detected (NotDetected) 06/15/24 01:40 Stl C. diff Tox B Gene Negative Cdiff Gene (Neg) 06/15/24 01:40 Stool Cryptosporidium PCR Not Detected (NotDetected) 06/15/24 01:40 Stl E.coli Shiga Tox PCR Not Detected (NotDetected) 06/15/24 01:40 Stl Enterotoxigenic E PCR Not Detected (NotDetected) 06/15/24 01:40 Stool EPEC (PCR) Not Detected (NotDetected) 06/15/24 01:40 Stool EAEC (PCR) Not Detected (NotDetected) 06/15/24 01:40 Stl E. histolytica PCR Not Detected (NotDetected) 06/15/24 01:40 Stool Giardia Lamblia PCR Not Detected (NotDetected) 06/15/24 01:40 Stool Salmonella PCR Not Detected (NotDetected) 06/15/24 01:40 Stool Sapovirus (PCR) Not Detected (NotDetected) 06/15/24 01:40 Stl P. shigelloides PCR Not Detected (NotDetected) 06/15/24 01:40 Stl Shigella/EIEC PCR Not Detected (NotDetected) 06/15/24 01:40 St Y.enterocolitica PCR Not Detected (NotDetected) 06/15/24 01:40 Stool Vibrio (PCR) Not Detected (NotDetected) 06/15/24 01:40 Stl Vibrio cholerae PCR Not Detected (NotDetected) 06/15/24 01:40 Stl Norovirus GI/GII PCR DETECTED (NotDetected) A* 06/15/24 01:40 Ethyl Alcohol mg/dL < 10.0 mg/dl (<10.0) 06/15/24 03:41 Adenovirus (PCR) Not Detected (NotDetected) 06/15/24 01:40 B. pertussis DNA (PCR) Not Detected (NotDetected) 06/15/24 01:40 B.parapertussis DNA PCR Not Detected (NotDetected) 06/15/24 01:40 C. pneumoniae DNA (PCR) Not Detected (NotDetected) 06/15/24 01:40 Coronavirus OC43 (PCR) Not Detected (NotDetected) 06/15/24 01:40 Coronavirus HKU1 (PCR) Not Detected (NotDetected) 06/15/24 01:40 Coronavirus 229E (PCR) Not Detected (NotDetected) 06/15/24 01:40 SARS-CoV-2 (PCR) DETECTED (NotDetected) A 06/15/24 01:40 Coronavirus NL63 (PCR) Not Detected (NotDetected) 06/15/24 01:40 Human Metapneumovir PCR Not Detected (NotDetected) 06/15/24 01:40 Influenza Type A (PCR) Not Detected (NotDetected) 06/15/24 01:40 Influenza Type B (PCR) Not Detected (NotDetected) 06/15/24 01:40 M. pneumoniae (PCR) Not Detected (NotDetected) 06/15/24 01:40 Parainfluenza 1 (PCR) Not Detected (NotDetected) 06/15/24 01:40 Parainfluenza 2 (PCR) Not Detected (NotDetected) 06/15/24 01:40 Parainfluenza 3 (PCR) Not Detected (NotDetected) 06/15/24 01:40 Parainfluenza 4 (PCR) Not Detected (NotDetected) 06/15/24 01:40 RSV (PCR) Not Detected (NotDetected) 06/15/24 01:40 Entero/Rhino (PCR) Not Detected (NotDetected) 06/15/24 01:40 Blood Type A Positive 06/15/24 01:49 Antibody Screen NEGATIVE 06/15/24 01:49 Impressions Abdomen/Pelvis CT 06/15/24 01:22 EXAM: CT abd pelvis IV con only CLINICAL HISTORY: Client comes to triage in with c/o abdominal pain for most of the day with n/v, with bloody diharrhea. Ongoing since October. 94 ml opti 320 PW TECHNIQUE: Contiguous axial images were obtained from the level of the diaphragm to the pubic symphysis with intravenous contrast. Coronal and sagittal reconstructions were likewise performed and indicated to increase the sensitivity for detecting clinically relevant pathology. If IV contrast material had not been administered, the likelihood of detecting abnormalities relevant to the patient's condition would have been substantially decreased. CT scan was performed according to ALARA (as low as reasonable achievable). COMPARISON: 04/25/2024 02:45:00 STERILIZATION TECH FINDINGS: The visualized lung bases are clear. The liver is normal in size and reduced attenuation. No focal liver lesions are seen. There is no intra or extrahepatic biliary ductal dilatation. Hepatic vasculature is patent. The gallbladder is present. The spleen and adrenal glands are unremarkable. Main pancreatic duct is prominent in proximal body and head region (3-4 mm in diameter). However, no obvious pancreatic mass or parenchymal atrophy seen. The kidneys are normal in size and attenuation. There is no hydronephrosis or perinephric fat stranding. No renal calculi or renal masses are identified. The ureters are normal in caliber and no ureteral calculi are seen. The bladder is normal in contour. Pelvic viscera are unremarkable. No focal or diffuse bowel wall thickening or evidence of bowel obstruction is identified. The appendix is visualized in the right lower quadrant and appears within normal limits. Abdominal and pelvic vasculature is patent. No adenopathy or fluid collections are seen. No aggressive appearing osseous lesions are identified. IMPRESSION: Hepatic steatosis-stable. Main pancreatic duct is prominent in proximal body and head region (3-4 mm in diameter). However, no obvious pancreatic mass or parenchymal atrophy seen. Stable finding as compared to prior study. No other new interval abnormality since prior study. Electronically signed by Familia Watson 06-15-2024 03:12 AM Chest X-Ray 06/15/24 07:49 XR chest 1V portable CLINICAL HISTORY: COVID 19 TECHNIQUE: Single frontal radiograph of the chest was obtained. Comparison: Comparison is made to chest radiograph 11/02/2023 FINDINGS: No lines and tubes are seen. The cardiomediastinal silhouette is normal. The lungs are clear. No evidence of pleural effusion or pneumothorax. IMPRESSION: No acute chest disease. ACT 112: Negative or not required by law. Electronically signed by: Rinku Cornejo M.D. 06/15/2024 8:22 AM Ordered Studies 06/15/24 01:22 CT abd pelvis IV con only Stat Hospital Course (1) Norovirus: Patient is a 49 yr female with past medical history significant for hypothyroidism, nonallergic rhinitis, history of partial seizure disorder, intractable migraines, cervical radiculopathy, hyperreflexia, xerophthalmia, recurrent depression, cognitive impairment, history of COVID, history of recurrent C. difficile presents with nausea and vomiting and diarrhea and abdomen pain started today evening. Had several episodes of nausea vomiting and diarrhea. No black stools. Sometimes she has blood in the stools and she says she is on prednisone for colitis for some time now. Denies any chest pain or shortness of breath. No cough. Has runny nose and sore throat. Mild headache. Nausea vomiting and diarrhea Abdominal pain Secondary to norovirus infection H/O C diff Suspected inflammatory bowel disease --CT ABD:Hepatic steatosis-stable. Main pancreatic duct is prominent in proximal body and head region (3-4 mm in diameter). However, no obvious pancreatic mass or parenchymal atrophy seen. Stable finding as compared to prior study. No other new interval abnormality since prior study. -- Stool for C. difficile negative --Stool PCR positive for norovirus -- Received IV fluid -- Tolerated diet, advance to regular diet --Appreciate GI input: Needs follow-up with primary robotics software engineer for outpatient colonoscopy -Continue tapering course of prednisone as previously prescribed Advised to follow-up with PCP, gastroenterology on discharge Pancreatic duct abnormality on CT Suspected pancreatitis--although no findings of pancreatitis on CT Lipase 927>> 202>>19 CT scan as above Pain control, antiemetics as needed Advance diet as tolerated Received IV fluids GI on board COVID 19 infection Supportive care COVID precautions Saturating well on room air Antitussives as needed Hypertension Likely situational Steroids likely contributing Started on amlodipine 5 mg daily Advised to monitor blood pressure regularly at home History of mood disorder, seizure disorder Continue home meds as able DVT prophylaxis SCDs Encouraged to ambulate CODE STATUS Full code Disposition Home Total Time Total Time Spent Total Time Spent (In Minutes): 46 minutes Discharge Plan Discharge Items Patient Disposition: Home - Self-Care Reason For Visit: N/V AND DIARRHEA, COVID, PANCREATITIS Discharge Diagnosis: Norovirus infection COVID 19 infection Hypertension Pancreatic duct abnormality on CT Scan Condition on Discharge: Good Activity: Per Instructions section Exercise/Sports: Wait until after follow-up appointment Non-emergency contact: Primary Care Provider Call non-emergency contact if: you have any medication questions, your symptoms worsen, your pain is concerning for you and you have a fever Follow-up/Referrals: Dayanara Green MD [Primary Care Provider] - Diet: Heart Healthy Addtl Attending Provider Instructions: Follow-up with your primary care physician in 1 week Follow-up with your robotics software engineer for colonoscopy as advised. -- Monitor your blood pressure regularly as advised. Discuss with your physician for further adjustment of medications as needed. --You are started on amlodipine 5 mg daily for better control of your blood pressure. Seek immediate medical attention if your symptoms reoccur or worsen Please take all medications as instructed on discharge list below. Please call if you have any questions or problems. You can reach a [facility] hospitalist on duty at [facility] 24 hours a day by calling [phone] Pending Studies at Discharge: No Stand-Alone Forms: [facility], Smoking Cessation Medications and DC Order Prescriptions: New amlodipine [Norvasc] 5 mg Tablet 5 mg PO QAM Qty: 30 1RF Continued prednisone 10 mg tablet 25 mg PO DAILY clonazepam 0.5 mg tablet 0.5 mg PO BID PRN (Reason: Anxiety) levothyroxine 50 mcg tablet 50 mcg PO DAILY colestipol 1 gram tablet 1 g PO BID zonisamide 50 mg capsule 50 mg PO UD Rx Instructions: 50mg in am and 100mg po hs Belsomra 10 mg tablet 10 mg PO HS Caplyta 42 mg capsule 42 mg PO HS Auvelity 45-105 mg tablet,IR,delayed rel,biphasic 1 tab PO BID Discharge Orders: Discharge Order (Routine); Ordered 06/16/24 Ordered By: Devan Gomez Admission Data Admit Date/Time: 06/15/24 05:34 Attending Provider: Devan Gomez Admit Provider: Jayy Reyna Primary Care Provider: Dayanara Green Other Providers: Jayy Reyna; Juancarlos Dunham
--- NOTE | 2024-06-16 13:51 | Communication Note ---
Date of Service: June 16, 2024 By CMS guidelines, a determination that the admission or continued stay is not medically necessary has been made by a member of the Utilization Review committee and a physician for this hospital stay. Therefore, a Code 44 will be completed and the inpatient admission will be changed to outpatient.
[2024-06-16] MEDS: amLODIPine BESYLATE 5 MG TAB PO ONE (13:54)
--- NOTE | 2024-06-16 15:14 | Communication Note ---
Date of Service: June 16, 2024 Manual blood pressure 140/90
[2024-06-17] MEDS ORDERED: amLODIPine BESYLATE 5 MG TAB PO SCH (09:00)
== END 2024-06-16 14:19 | disposition home or self-care (01) | DRG 391 ==
LOC: ED 01:07 → 2N 05:34 → INTOOBSV 05:34 → 2N 06:14